=== PATIENT | male | born 1935 | race Caucasian/White ===

== ENCOUNTER → 2016-09-01 | Day surgery (SDC) | payer OTHER, BC ==
[~2016-09-01] MED LIST: ASPIRIN EC 325 MG TAB PO ONE; ATROPINE SULFATE 1 MG/10 ML SYR IVP PRN; ATROPINE SULFATE 1 MG/10 ML SYR ONE; BENZOCAINE UNIT DOSE SPRAY HURRICAINE MM ONE; DIAZEPAM 5 MG TAB ONE; DIAZEPAM 5 MG TAB PO ONE; FAMOTIDINE 20 MG TAB ONE; FAMOTIDINE 20 MG TAB PO ONE; HEPARIN 10,000 UNIT/10 ML MDV ONE; HYDROCODONE/APAP 5/325 TAB PO PRN; IOPAMIDOL (ISOVUE-370) 150 ML BTL IV ONE; LIDOCAINE 1% 30 ML SDV ONE; MIDAZOLAM 2 MG/2 ML VIAL IVP ONE; MIDAZOLAM 2 MG/2 ML VIAL ONE; NS 1,000 ML IV ONE; ONDANSETRON 4 MG/2 ML VIAL IVP PRN; VERAPAMIL 5 MG/2 ML VIAL ONE; diphenhydrAMINE 25 MG CAP PO ONE; fentaNYL 100 MCG/2 ML INJ IVP ONE; fentaNYL 100 MCG/2 ML INJ ONE
--- NOTE | 2016-09-01 11:55 | CPEKG ---
Heart Rate: 75 RR Interval: 800 P-R Interval: 161 QRSD Interval: 102 QT Interval: 428 QTC Interval: 479 P [place]: 0 QRS [place]: 121 T Wave [place]: -37 EKG Severity - ABNORMAL ECG - EKG Impression: SINUS RHYTHM EKG Impression: RIGHT AXIS DEVIATION EKG Impression: LOW VOLTAGE IN FRONTAL LEADS EKG Impression: non-specific T wave changes inferior and laterally. EKG Impression: IVCD Electronically Signed By: Hebert Byrd 01-Sep-2016 17:32:23
[2016-09-01 12:05] LABS: % IMMATURE GRANULYOCYTES 0.6 % (0.0-1.1); ABSOLUTE IMMATURE GRANULOCYTES 0.04 10^3/uL (0.00-0.10); ADD DIFF? NO; ADD MORPH? NO; ADD SCAN? NO; ATYPICAL LYMPHOCYTE FLAG 10 (0-99); FRAGMENT RBC FLAG 0 (0-99); HEMATOCRIT 40.7 % (40.0-51.0); LEFT SHIFT FLG 0 (0-99); LIPEMIA HEMOLYSIS FLAG 90 (0-99); MEAN CELL HEMOGLOBIN 30.3 pg (27.9-34.1); MEAN CELL HEMOGLOBIN CONCENTR. 34.4 g/dL (32.4-36.7); MEAN CELL VOLUME 88.1 fL (81.5-99.8); MEAN PLATELET VOLUME 9.2 fL (8.7-11.7); PLATELET CLUMPS FLAG 10 (0-99); PLATELET COUNT 200 10^3/uL (150-400); RED BLOOD CELL COUNT 4.62 10^6/uL (4.40-6.38); RED CELL DISTRIBUTION WIDTH 14.3 % (11.5-15.2)
[2016-09-01 12:21] LABS: INR 1.16 (0.83-1.16); PROTIME(PATIENT) 14.8 SEC (12.0-15.0)
[2016-09-01 12:36] LABS: POTASSIUM 4.1 mEq/L (3.5-5.2)
[2016-09-01 12:37] LABS: ANION GAP 13 mEq/L (8-16); CALCIUM 9.3 mg/dL (8.5-10.4); CARBON DIOXIDE 26 mEq/l (22-31); CHLORIDE 104 mEq/L (97-110); CHOLESTEROL 98 mg/dL (140-220); CHOLESTEROL/HDL RATIO 2.97 RATIO (1.00-4.97); GLOMERULAR FILTRATION RATE > 60; GLUCOSE 98 mg/dL (70-100); HIGH DENSITY LIPOPROTEIN 33 mg/dL (40-65); SODIUM 143 mEq/L (134-144); TRIGLYCERIDE 56 mg/dL (40-150); VERY LOW DENSITY LIPOPROTEINS 11 mg/dL (8-25)
[2016-09-01 12:38] LABS: LDL/HDL RATIO 1.64 RATIO (1.00-3.64); LOW DENSITY LIPOPROTEIN 54 mg/dL (80-100); MAGNESIUM 1.9 mg/dL (1.6-2.3); NON-HIGH DENSITY LIPOPROTEIN 65 mg/dL (90-129)
--- NOTE | 2016-09-01 13:50 | SUROPNOTE ---
[facility] Operative Report - Surgery Date of Procedure: 09/01/2016 Indication: This patient is an 81 year old man, with history of mitral valvuloplasty by Dr. Castro 16 years ago (quadrangular resection of the posterior leaflet and a ring annuloplasty with a 29mm Negro angioplasty ring), pulmonary hypertension, KARELY on CPAP, coronary artery disease (mild by [facility] in 2012), and paroxysmal atrial fibrillation, now presenting with increasing shortness of breath and dyspnea on exertion. The patient was only able to complete 3 minutes and 21 seconds on ETT secondary to limiting dyspnea. Echocardiogram demonstrated increasing pulmonary artery pressure estimated at 50 -60mmHg, mitral valve area of 1.3cm^2, and mean gradient of 8mm across the mitral valve. His BNP is elevated at 1900. A transesophageal echocardiogram and right/left heart catheterization with simultaneous transmitral valve pressure is indicated for evaluation of mitral stenosis. Procedures performed: 1. Transesophageal echocardiogram 2. Right and Left heart catheterization with left ventricular and selective coronary angiography. Simultaneous transmitral valve pressure was measured. Description of procedure: Description, risks, benefits and alternatives were discussed in detail. Informed consent was obtained. The patient received IV Versed and IV Fentanyl for sedation. Patient underwent transesophageal echocardiography which demonstrated mitral stenosis with mean gradient of 6mmHg across the mitral valve. The patient was brought to the catheterization laboratory where a timeout was performed. The right arm was sterilely prepped and draped. 2% lidocaine utilized for local anesthetic. A 5-Hungarian hemostatic sheath was placed in the right brachial vein utilizing the IV already in place. A 5-Hungarian PWP catheter was utilized for right heart catheterization. 021 [place] wire utilized to orient the catheter in the desired position. A 5/6-Hungarian slender hemostatic sheath placed right radial artery utilizing micropuncture technique. Intraarterial verapamil and intravenous heparin was administered. Next, Pigtail catheter was utilized for left heart catheterization, while the PWP catheter was kept in position for pulmonary capillary wedge pressure. Simultaneous transmitral valve pressure was measured. Pigtail catheter was then utilized for left heart catheterization and left ventricular angiography. Pullback gradient was obtained. Diagnostic coronary angiography performed with 6-Hungarian, Maki right-4 and Maki left-3.5 catheter. All catheters passed over a 0.035 guidewire. Arterial sheath was removed and TR band was placed. Venous sheath was removed in the CVC. Findings: 1. Transesophageal echocardiography demonstrated mitral stenosis with mean gradient of 6mmHg across the mitral valve. 1. Hemodynamics: Right atrial pressure mean of 25, right ventricular pressure 61/19/30 end-diastolic, pulmonary artery pressure 64/27, mean of 39, pulmonary capillary wedge pressure mean of 31 with a small V wave. Aortic pressure 129/69 , mean of 94, left ventricular pressure 130/13/25 end-diastolic. Mean transmitral valvular gradient was approximately 11.7mmHg. Estimated mitral valve area is 0.87cm^2. 2. Saturations: Main pulmonary artery 62.5%, Ao 95.7%. Assumed Brant cardiac output 3.87L/min with cardiac index of 1.98L/min/m2. Repeat saturations after transmitral valve pressures were taken: Main pulmonary artery 60.1%. Ao 94.1% Assumed Brant cardiac output 3.78L/min and cardiac index 1.93L/min/m2. 2. Left ventricle: The left ventricle appears normal in size. Left ventricle is normal shape. Segmental wall motion is normal with an ejection fraction of 50 -55%. There is no significant mitral regurgitation or filling defects. The aortic root and ascending aorta appears normal, there is no dissection or aneurysm formation. 3. Coronary angiography: Left main: The left main is quite short and bifurcates and is free of disease. 4. Left anterior descending: This is a moderate-sized vessel continuing to the apex. There is a small first and moderate bifurcating second diagonal branch. There are luminal irregularities in the proximal, mid, and distal LAD, but no stenosis of greater than 20%. 5. Circumflex: The circumflex gives rise to a [id number] high lateral/ ramus intermedius branch and a small marginal and a large marginal branch. There are minor luminal irregularities and no significant stenosis. 6. Right coronary: Moderately large dominant vessel. Moderate posterior descending and moderate multibranching posterolateral circulation. The vessel has mild luminal irregularities, but no significant stenoses. Overall Impression: 1. Probable severe mitral stenosis although hemodynamics are not greatly different than 3 years ago. Wonder whether increased diuretic therapy would give symptomatic improvement vs. surgery consult vs. transcutaneous mitral valve replacement. 2. Mild coronary artery disease, without significant progression since 2012. 3. Low-normal left ventricular systolic function with ejection fraction of 50- 55%. Plan: 1. Increased diuretic therapy for symptomatic improvement vs. surgery consult vs. consider transcutaneous mitral valve replacement. 2. Continue aggressive risk modification and statin therapy. Portions of this chart were entered by a scribe. I have reviewed this chart and agree with the documentation. Report scribed for Dr. Vinicius Ceron. Report scribed by Rissa Garcia.
--- NOTE | 2016-09-04 11:26 | ECHO ---
[id number] + + [address] : : [place] [address] : : [phone] + + Transesophageal Echocardiographic Report + -----+ :Name: GISELA WILSON Date: 09/01/2016 12:52 PM : : Hospital Admission Number: [id number] Location : [facility]: :: 1935 Gender: Male : :Age: 81 yrs Race: WH,White : :Reason For Study: Eval Mitral Valve : :History: Pre Cath, MVR : + -----+ Doppler Measurements & Calculations MV V2 mean: 118.8 cm/sec TR max marshall: 254.7 cm/sec MV mean P.7 mmHg TR max P.9 mmHg MV V2 VTI: 68.2 cm RAP systole: 10.0 mmHg RVSP(TR): 35.9 mmHg Left Ventricle The left ventricular ejection fraction is normal. Atria The interatrial septum is intact with no evidence for an atrial septal defect. Injection of contrast documented no interatrial shunt. No left atrial mass or thrombus visualized. No thrombus is detected in the left atrial appendage. The left atrium is moderate to severely dilated. The right atrium is moderate to severely dilated. Mitral Valve The posterior mitral leaflet is thickened and fixed consistent with prior mitral repair surgery. MV apporximate Mean PG is 6 mmHg by ISABEL. There is moderate mitral stenosis. There is trace to mild mitral regurgitation. The mitral valve has been repaired. An annuloplasty ring is noted in the mitral position. Tricuspid Valve There is mild to moderate tricuspid regurgitation. Aortic Valve The aortic valve is trileaflet. There is no aortic stenosis. Mild to moderate aortic regurgitation. Pulmonic Valve The pulmonic valve is normal in structure and function. Conclusion A 2D transesophageal echocardiogram with color flow Doppler was performed. The left ventricular ejection fraction is normal. The interatrial septum is intact with no evidence for an atrial septal defect. Injection of contrast documented no interatrial shunt. No left atrial mass or thrombus visualized. No thrombus is detected in the left atrial appendage. MV apporximate Mean PG is 6 mmHg by ISABEL. The mitral valve has been repaired. There is mild to moderate tricuspid regurgitation. The aortic valve is trileaflet. Mild to moderate aortic regurgitation. There is trace to mild mitral regurgitation. The left atrium is moderate to severely dilated. There is moderate mitral stenosis. Final Reading Physician: Tiffanie Alonso signed on 09/04/2016 11:21 AM Ordering Physician: TRINY AVELAR Performed By: Triny Avelar MD
== END | disposition home or self-care (01) ==
LOC: FCATH 11:27
PROVIDERS: ATTEND Internal Medicine Interventional Cardiology
PROC: 4A023N8 Measurement of Cardiac Sampling and Pressure, Bilateral, Percutaneous Approach (ICD-10-PCS; principal; 2016-09-01)
PROC: B2151ZZ Fluoroscopy of Left Heart using Low Osmolar Contrast (ICD-10-PCS; principal; 2016-09-01)
PROC: B246ZZ4 Ultrasonography of Right and Left Heart, Transesophageal (ICD-10-PCS; principal; 2016-09-01)
PROC: B2111ZZ Fluoroscopy of Multiple Coronary Arteries using Low Osmolar Contrast (ICD-10-PCS; principal; 2016-09-01)
DX: I34.2 Nonrheumatic mitral (valve) stenosis (principal); I48.0 Paroxysmal atrial fibrillation; I27.2 Other secondary pulmonary hypertension; G47.33 Obstructive sleep apnea (adult) (pediatric); Z99.89 Dependence on other enabling machines and devices; I25.10 Atherosclerotic heart disease of native coronary artery without angina pectoris
CPT/HCPCS: J0461; J1644; J2250; J3010; Q9967

== ENCOUNTER → 2016-10-05 | Outpatient (CLI) | payer OTHER, BC | LOC: BMCIMAGING 10:45 | PROVIDERS: ATTEND Internal Medicine | DX: R05 Cough (principal); R50.9 Fever, unspecified; I50.9 Heart failure, unspecified ==

== ENCOUNTER → 2017-01-01 | Outpatient (CLI) | payer OTHER, BC | LOC: BHFA 10:00 | PROVIDERS: ATTEND Internal Medicine Cardiovascular Disease | DX: Z01.818 Encounter for other preprocedural examination (principal); I65.23 Occlusion and stenosis of bilateral carotid arteries ==

== ENCOUNTER → 2017-01-03 | Outpatient (CLI) | payer OTHER, BC | LOC: FLAB 10:28 | PROVIDERS: ATTEND Thoracic Surgery (Cardiothoracic Vascular Surgery) | DX: Z01.810 Encounter for preprocedural cardiovascular examination (principal); J44.9 Chronic obstructive pulmonary disease, unspecified; I05.9 Rheumatic mitral valve disease, unspecified; I07.9 Rheumatic tricuspid valve disease, unspecified; I48.91 Unspecified atrial fibrillation ==

== ENCOUNTER 2017-01-08 06:39 | Inpatient (IN) | payer OTHER, BC ==
[2017-01-03 10:35] LABS: % IMMATURE GRANULYOCYTES 1.4 % (0.0-1.1); ABSOLUTE IMMATURE GRANULOCYTES 0.08 10^3/uL (0.00-0.10); ADD DIFF? NO; ADD MORPH? NO; ADD SCAN? NO; ATYPICAL LYMPHOCYTE FLAG 10 (0-99); FRAGMENT RBC FLAG 0 (0-99); HEMOGLOBIN 14.9 g/dL (13.7-17.5); LEFT SHIFT FLG 20 (0-99); LIPEMIA HEMOLYSIS FLAG 90 (0-99); MEAN CELL HEMOGLOBIN 29.9 pg (27.9-34.1); MEAN CELL HEMOGLOBIN CONCENTR. 33.9 g/dL (32.4-36.7); MEAN CELL VOLUME 88.4 fL (81.5-99.8); MEAN PLATELET VOLUME 9.7 fL (8.7-11.7); PLATELET CLUMPS FLAG 0 (0-99); PLATELET COUNT 221 10^3/uL (150-400); RED BLOOD CELL COUNT 4.98 10^6/uL (4.40-6.38); RED CELL DISTRIBUTION WIDTH 15.2 % (11.5-15.2)
[2017-01-03 10:53] LABS: ANION GAP 13 mEq/L (8-16); CALCIUM 10.1 mg/dL (8.5-10.4); CARBON DIOXIDE 25 mEq/l (22-31); CHLORIDE 104 mEq/L (97-110); CREATININE 1.2 mg/dL (0.7-1.3); GLOMERULAR FILTRATION RATE 58; GLUCOSE 131 mg/dL (70-100); POTASSIUM 4.9 mEq/L (3.5-5.2); SODIUM 142 mEq/L (134-144)
[2017-01-04 16:50] LABS: HEMOGLOBIN A1C 6.5 % (4.0-6.0)
[~2017-01-08 06:39] MED LIST changes: +AMINOCAPROIC ACID 5 GM/20 ML VIAL IV ONE; -ASPIRIN EC 325 MG TAB PO ONE; -ATROPINE SULFATE 1 MG/10 ML SYR IVP PRN; -ATROPINE SULFATE 1 MG/10 ML SYR ONE; -BENZOCAINE UNIT DOSE SPRAY HURRICAINE MM ONE; +CITRATE DEXTROSE SOLN 500 ML BAG MISC ONE; -DIAZEPAM 5 MG TAB ONE; -DIAZEPAM 5 MG TAB PO ONE; -FAMOTIDINE 20 MG TAB ONE; -FAMOTIDINE 20 MG TAB PO ONE; -HEPARIN 10,000 UNIT/10 ML MDV ONE; -HYDROCODONE/APAP 5/325 TAB PO PRN; +INSULIN REGULAR HUMAN 100 UNIT in NS 100 ML IV ONE; -IOPAMIDOL (ISOVUE-370) 150 ML BTL IV ONE; -LIDOCAINE 1% 30 ML SDV ONE; +LIDOCAINE 1% 5 ML SDV ID PRN; +MANNITOL 25% 12.5 GM/50 ML VIAL IV ONE; -MIDAZOLAM 2 MG/2 ML VIAL IVP ONE; -MIDAZOLAM 2 MG/2 ML VIAL ONE; +NOREPINEPHRINE BITARTRATE 16 MG in NS 250 ML IV ONE; -ONDANSETRON 4 MG/2 ML VIAL IVP PRN; +PHENYLEPHRINE HCL 50 MG in NS 250 ML IV ONE; +SODIUM BICARBONATE 20 MEQ, LIDOCAINE 1% 10 ML in NORMOSOL-R 1,000 ML MISC ONE; -VERAPAMIL 5 MG/2 ML VIAL ONE; +ceFAZolin 2 GM/DEXTROSE 100 ML IV ONE; -diphenhydrAMINE 25 MG CAP PO ONE; -fentaNYL 100 MCG/2 ML INJ IVP ONE; -fentaNYL 100 MCG/2 ML INJ ONE; +niCARdipine/NACL 200 ML IV ONE
[2017-01-08] MEDS ORDERED: DOPamine/DEXTROSE/250 ML BAG IV ONE (06:42)
[2017-01-08] MEDS ORDERED: niCARdipine/NACL/200 ML BAG IV ONE (06:42)
[2017-01-08] MEDS ORDERED: ALBUMIN 5% 250 ML BOTTLE IV ONE (06:42)
[2017-01-08] MEDS ORDERED: NA BICARBONATE 50 MEQ/50 ML VIAL ONE (06:42)
[2017-01-08] MEDS ORDERED: PROTAMINE SULFATE 50 MG/5 ML VIAL IVP ONE (06:42)
[2017-01-08] MEDS ORDERED: LIDOCAINE 2% 100 MG/5 ML SYR ONE ×2 (06:42→08:16)
[2017-01-08] MEDS ORDERED: CALCIUM CHLORIDE 1 GM/10 ML INJ ONE ×2 (06:42→08:16)
[2017-01-08] MEDS ORDERED: POTASSIUM Cl (KCl) 20 MEQ/50 ML BAG IV ONE (06:42)
[2017-01-08] MEDS ORDERED: CITRATE DEXTROSE SOLN 500 ML BAG ONE (06:42)
[2017-01-08] MEDS ORDERED: MILRINONE/DEXTROSE/100 ML BAG IV ONE (06:42)
[2017-01-08] MEDS ORDERED: AMINOCAPROIC ACID 5 GM/20 ML VIAL ONE (06:42)
[2017-01-08] MEDS ORDERED: ADENOSINE 6 MG/2 ML VIAL ONE (06:43)
[2017-01-08] MEDS ORDERED: AMIODARONE HCL 150 MG/3 ML VIAL ONE (06:43)
[2017-01-08] MEDS ORDERED: methylPREDNISolone SOD SUCC 1 GM/8 ML VIAL ONE (06:43)
[2017-01-08] MEDS ORDERED: MAGNESIUM SULFATE 1 GM/2 ML VIAL ONE (06:43)
[2017-01-08] MEDS ORDERED: HEPARIN 10,000 UNIT/10 ML MDV ONE (06:43)
[2017-01-08] MEDS ORDERED: ceFAZolin 1 GM VIAL ONE (06:44)
--- NOTE | 2017-01-08 07:36 | PDGENHP ---
History and Physical - Chief Complaint MS, TR, AI, PAF - History of Present Illness 81M evaluated at [facility] on 11/28/16 for symptomatic valvular cardiomyopathy with paroxysmal atrial fibrillation. Pt here today for elective redo sternotomy, redo mitral repair vs replacement, tricuspid repair, possible aortic valve replacement, and atrial fibrillation ablation. Pt had a persistent cough last week which has since resolved after his Lasix dose was increased. When standing quickly from sitting he sometimes feels light- headed, but otherwise feels well. He denies syncope, CP, palpitations, worsening SOB, abdominal pain. He states his legs sometimes swell. History Information - Allergies/Home Medication List Allergies/Adverse Reactions: No Known Allergies Allergy (Verified 12/07/16 11:29) Home Medications: Amiodarone HCl [Pacerone (*)] 200 mg PO DAILY 12/27/16 [Last Taken 01/07/17] Amoxicillin 2,000 mg PO DAILY PRN 12/27/16 [Last Taken Unknown] Apixaban [Eliquis] 5 mg PO BID 12/27/16 [Last Taken 01/02/17] Atorvastatin Calcium [Lipitor 20 mg (*)] 20 mg PO HS 12/27/16 [Last Taken ] Furosemide [Lasix 20 MG (*)] 20 mg PO DAILY@1400 12/27/16 [Last Taken 01/07/17] Furosemide [Lasix 40 MG (*)] 40 mg PO DAILY 12/27/16 [Last Taken Unknown] Herbals/Supplements -Info Only 1 ea PO DAILY 12/27/16 [Last Taken Unknown] Multivitamins [Multivitamin (*)] 1 each PO DAILY 12/27/16 [Last Taken 01/07/17] Psyllium Husk (with Sugar) [Metamucil Packet] 3.4 gm PO DAILY@1200 12/27/16 [ Last Taken Unknown] amLODIPine BESYLATE [Amlodipine Besylate] 5 mg PO DAILY 12/27/16 [Last Taken ] Lovenox 01/08/17 [Last Taken 01/07/17] I have personally reviewed and updated: medical history, social history, surgical history - Past Medical History atrial fibrillation, CHF, GERD, hypertension Additional medical history: MS, TR, AI - Surgical History Additional surgical history: MV repair 1999 ([place]) - Social History Smoking Status: Former smoker Alcohol Use: Occasionally Review of Systems ROS: 10pt was reviewed & negative except for what was stated in HPI & below Constitutional: Reports: no symptoms EENMT: Reports: no symptoms Cardiac: Reports: edema, lightheadedness. Denies: chest pain, irregular heart rate, palpitations, syncope Respiratory: Reports: cough, shortness of breath Gastrointestinal: Reports: no symptoms Genitourinary: Reports: no symptoms Muscolosketal: Reports: no symptoms Skin: Reports: rash (chest) Neurological: Reports: no symptoms Physical Exam Constitutional: no apparent distress, appears nourished, not in pain Eyes: anicteric sclera Ears, Nose, Mouth, Throat: moist mucous membranes, ears appear normal Cardiovascular: regular rate and rhythym Peripheral Pulses: 2+: dorsalis-pedis (R), dorsalis-pedis (L) Respiratory: no respiratory distress, no rales or rhonchi, clear to auscultation , No expiratory wheeze Gastrointestinal: soft, non-tender abdomen, No tenderness Genitourinary: no bladder fullness, no bladder tenderness Skin: warm, normal color, rash (?dermatitis) Musculoskeletal: full muscle strength Neurologic: AAOx3, sensation intact bilaterally Psychiatric: interacting appropriately, not anxious, not encephalopathic, thought process linear Lab Data & Imaging Review 01/03/17 10:03 01/03/17 10:03 WBC 5.63 10^3/uL (3.80-9.50) 01/03/17 10:03 RBC 4.98 10^6/uL (4.40-6.38) 01/03/17 10:03 Hgb 14.9 g/dL (13.7-17.5) 01/03/17 10:03 Hct 44.0 % (40.0-51.0) 01/03/17 10:03 MCV 88.4 fL (81.5-99.8) 01/03/17 10:03 MCH 29.9 pg (27.9-34.1) 01/03/17 10:03 MCHC 33.9 g/dL (32.4-36.7) 01/03/17 10:03 RDW 15.2 % (11.5-15.2) 01/03/17 10:03 Plt Count 221 10^3/uL (150-400) 01/03/17 10:03 MPV 9.7 fL (8.7-11.7) 01/03/17 10:03 Neut % (Auto) 79.0 % (39.3-74.2) H 01/03/17 10:03 Lymph % (Auto) 10.7 % (15.0-45.0) L 01/03/17 10:03 Mason % (Auto) 7.1 % (4.5-13.0) 01/03/17 10:03 Eos % (Auto) 1.4 % (0.6-7.6) 01/03/17 10:03 Baso % (Auto) 0.4 % (0.3-1.7) 01/03/17 10:03 Nucleat RBC Rel Count 0.0 % (0.0-0.2) 01/03/17 10:03 Absolute Neuts (auto) 4.45 10^3/uL (1.70-6.50) 01/03/17 10:03 Absolute Lymphs (auto) 0.60 10^3/uL (1.00-3.00) L 01/03/17 10:03 Absolute Monos (auto) 0.40 10^3/uL (0.30-0.80) 01/03/17 10:03 Absolute Eos (auto) 0.08 10^3/uL (0.03-0.40) 01/03/17 10:03 Absolute Basos (auto) 0.02 10^3/uL (0.02-0.10) 01/03/17 10:03 Absolute Nucleated RBC 0.00 10^3/uL (0-0.01) 01/03/17 10:03 Immature Gran % 1.4 % (0.0-1.1) H 01/03/17 10:03 Immature Gran # 0.08 10^3/uL (0.00-0.10) 01/03/17 10:03 Sodium 142 mEq/L (134-144) 01/03/17 10:03 Potassium 4.9 mEq/L (3.5-5.2) 01/03/17 10:03 Chloride 104 mEq/L (97-110) 01/03/17 10:03 Carbon Dioxide 25 mEq/l (22-31) 01/03/17 10:03 Anion Gap 13 mEq/L (8-16) 01/03/17 10:03 BUN 31 mg/dL (7-23) H 01/03/17 10:03 Creatinine 1.2 mg/dL (0.7-1.3) 01/03/17 10:03 Estimated GFR 58 01/03/17 10:03 Glucose 131 mg/dL (70-100) H 01/03/17 10:03 Hemoglobin A1c 6.5 % (4.0-6.0) H 01/03/17 10:03 Estim Average Glucose 140 mg/dL (68-126) H 01/03/17 10:03 Calcium 10.1 mg/dL (8.5-10.4) 01/03/17 10:03 Patient ABO/Rh O POSITIVE 01/03/17 10:03 Antibody Screen NEGATIVE 01/03/17 10:03 Crossmatch IS Only See Detail 01/03/17 10:03 Visualized and Interpreted Chest x-ray results: Yes Chest X-Ray results: no infiltrate Assessment & Plan Assessment: MS, TR, AI, PAF Plan: Redo-sternotomy, redo mitral valve repair vs replacement, tricuspid repair, Hunt- Maze IV, possible aortic valve replacement
[2017-01-08] MEDS ORDERED: LR 1,000 ML IV ONE (07:38)
[2017-01-08] MEDS ORDERED: MINERAL OIL 10 ML VIAL ONE (07:52)
[2017-01-08] MEDS ORDERED: MIDAZOLAM 2 MG/2 ML VIAL ONE ×3 (08:02→08:15)
[2017-01-08] MEDS ORDERED: fentaNYL 100 MCG/2 ML INJ ONE (08:15)
[2017-01-08] MEDS ORDERED: REMIFENTANIL HCL 1 MG VIAL ONE ×2 (08:15→10:42)
[2017-01-08] MEDS ORDERED: PROPOFOL/EMULSION 500 MG/50 ML BOTTLE IV ONE ×2 (08:15→10:42)
[2017-01-08] MEDS ORDERED: DEXAMETHASONE 4 MG/ML VIAL ONE ×2 (08:16)
[2017-01-08] MEDS ORDERED: PHENYLEPHRINE HCL 100 MCG/ML SYR ONE (08:16)
[2017-01-08] MEDS ORDERED: ROCURONIUM 100 MG/10 ML VIAL ONE (08:16)
[2017-01-08] MEDS ORDERED: LIDOCAINE HCL 160 MG/4 ML LTA KIT TP ONE (08:16)
[2017-01-08] MEDS ORDERED: ROCURONIUM 50 MG/5 ML VIAL ONE (08:16)
[2017-01-08] MEDS ORDERED: epHEDrine SULFATE 10 MG/ML SYR ONE (08:16)
[2017-01-08] MEDS ORDERED: ONDANSETRON 4 MG/2 ML VIAL ONE (08:16)
[2017-01-08] MEDS ORDERED: MAGNESIUM SULF 2 GM/WATER 50 ML BAG IV ONE (11:25)
[2017-01-08] MEDS: MUPIROCIN 2% 22 GM OINT NS SCH ×3 (11:46→21:02)
[2017-01-08] MEDS ORDERED: SODIUM CL NASAL 45 ML BTL EACHNARE PRN (13:50)
[2017-01-08] MEDS ORDERED: POLYETHYLENE GLYCOL 3350 17 GM PKT PO PRN (13:50)
[2017-01-08] MEDS ORDERED: D50W 25 GM/50 ML SYR IVP PRN (13:50)
[2017-01-08] MEDS ORDERED: CEPACOL LOZENGE PO PRN (13:50)
[2017-01-08] MEDS ORDERED: MAGNESIUM HYDROXIDE 30 ML UDCUP PO PRN (13:50)
[2017-01-08] MEDS ORDERED: ONDANSETRON DISINTEGRATING 4 MG TAB PO PRN (13:50)
[2017-01-08] MEDS ORDERED: ACETAMINOPHEN 325 MG TAB PO PRN (13:50)
[2017-01-08] MEDS ORDERED: PANTOPRAZOLE SODIUM 40 MG in NS 100 ML IV ONE (13:50)
[2017-01-08] MEDS ORDERED: METOCLOPRAMIDE 10 MG/2 ML VIAL IVP PRN (13:50)
[2017-01-08] MEDS ORDERED: BISACODYL 10 MG SUPP PR PRN (13:50)
[2017-01-08] MEDS ORDERED: LACTULOSE 20 GM/30 ML UDCUP PO PRN (13:50)
[2017-01-08] MEDS ORDERED: MAGNESIUM SULF 2 GM/WATER 50 ML IV ONE (13:50)
[2017-01-08] MEDS ORDERED: ONDANSETRON 4 MG/2 ML VIAL IVP PRN (13:50)
[2017-01-08] MEDS ORDERED: MEPERIDINE 25 MG/ML SYR IVP PRN (13:50)
[2017-01-08] MEDS ORDERED: ACETAMINOPHEN 650 MG SUPP PR PRN (13:50)
[2017-01-08] MEDS ORDERED: HYDROCODONE/APAP 5/325 TAB PO PRN (13:50)
[2017-01-08] MEDS ORDERED: SUGAMMADEX SODIUM 200 MG/2 ML VIAL IVP ONE (14:00)
[2017-01-08] MEDS ORDERED: NS 1,000 ML IV SCH (14:00)
[2017-01-08 15:13] LABS: BASE EXCESS -8.3 mEq/L (-2.5-2.5); BICARBONATE 18 mEq/L (22-26); MEASURED OXYGEN SATURATION 88 % (92-95); O2 CONCENTRATIION 100 % (0-100); P/F RATIO 57 RATIO; PCO2 36 mmHg (34-38); PO2 57 mmHg (65-75); SIMV YES; TCO2 19 mEq/L (23-27)
[2017-01-08 15:14] LABS: PRESSURE SUPPORT 7
--- NOTE | 2017-01-08 15:52 | POSTOPPROG ---
Post Op Note Date of Operation: 01/08/17 Surgeon: Graham Archuleta Psych Specialist: Eda Anesthesiologist: Darrel Anesthesia: GET(General Endotracheal) Pre-op Diagnosis: MS/TR/NPAF Procedure: CMIV/MVR #23 St Khai/TVA #34 ring Inf/Abcess present in the surg proc area at time of surgery?: No EBL: 100-500 Drains: Other (3 blakes)
[2017-01-08 17:51] LABS: CALCULATED OXYGEN SATURATION 98 % (92-95); O2 CONCENTRATIION 40 % (0-100)
[2017-01-08] MEDS: fentaNYL 100 MCG/2 ML INJ IVP PRN ×2 (17:52→21:03)
[2017-01-08] MEDS: ALBUMIN 5% 250 ML IV PRN ×2 (17:56→18:18)
[2017-01-08] MEDS: CHLORHEXIDINE GLUCONATE 15 ML UDL PO SCH ×2 (18:35→20:37)
[2017-01-08] MEDS: FAMOTIDINE 20 MG/NACL 50 ML IV SCH (18:38)
[2017-01-08] MEDS ORDERED: FUROSEMIDE 20 MG/2 ML VIAL IV ONE (20:30)
[2017-01-08] MEDS: ceFAZolin 2 GM/DEXTROSE 100 ML IV SCH (20:37)
[2017-01-08] MEDS: INSULIN REGULAR HUMAN 100 UNIT in NS 100 ML IV SCH ×2 (21:05→22:01)
[2017-01-08] MEDS: POTASSIUM Cl (KCl) 50 ML IV PRN ×2 (21:35→21:38)
[2017-01-08 22:34] LABS: CALCULATED OXYGEN SATURATION 88 % (92-95); O2 CONCENTRATIION 92 % (0-100)
[2017-01-08] MEDS ORDERED: SODIUM BICARBONATE 50 MEQ/50 ML SYR IV ONE (23:00)
[2017-01-09] MEDS: POTASSIUM Cl (KCl) 50 ML IV PRN (00:07)
[2017-01-09] MEDS: fentaNYL 100 MCG/2 ML INJ IVP PRN ×3 (01:09→08:50)
[2017-01-09 01:21] LABS: BASE EXCESS -2.8 mEq/L (-2.5-2.5); BICARBONATE 21 mEq/L (22-26); MEASURED OXYGEN SATURATION 92 % (92-95); PCO2 38 mmHg (34-38); PO2 69 mmHg (65-75); TCO2 22 mEq/L (23-27)
[2017-01-09 01:22] LABS: O2 CONCENTRATIION 94 % (0-100); P/F RATIO 73 RATIO
[2017-01-09] MEDS ORDERED: DOPamine/DEXTROSE/250 ML BAG IV ONE ×2 (02:35→18:48)
--- NOTE | 2017-01-09 02:59 | GOP ---
[f rep st] OPERATIVE REPORT DATE OF OPERATION: 01/08/2017 SURGEON: Graham Archuleta DO FLIGHT KITCHEN MANAGER: Brian Veras PA-C ANESTHESIOLOGIST: Manfred Rojo MD PREOPERATIVE DIAGNOSIS: 1. Mitral stenosis, status post previous mitral valve repair. 2. Tricuspid insufficiency. 3. Long-standing, persistent atrial fibrillation. 4. Dilated cardiomyopathy with class 3 congestive heart failure. POSTOPERATIVE DIAGNOSIS: 1. Mitral stenosis, status post previous mitral valve repair. 2. Tricuspid insufficiency. 3. Long-standing, persistent atrial fibrillation. 4. Dilated cardiomyopathy with class 3 congestive heart failure. PROCEDURE PERFORMED: 1. Reoperation, mitral valve replacement with a #23 Saint Khai mechanical prosthesis. 2. Tricuspid ring annuloplasty with #34 annuloplasty ring. 3. Hunt Maze 4 procedure, with testing. FINDINGS: DESCRIPTION OF PROCEDURE: Patient was found to have worsening class 3-4 congestive heart failure. He was found to have severe mitral stenosis on a previous mitral valve repair. He was also noted to have moderate tricuspid insufficiency with dilated right atrium, and persistent atrial fibrillation . He was referred for surgical intervention. He was brought to the operating room, intubated, and monitoring lines were placed. He was prepped a nd draped in sterile classical manner. Sternotomy was performed. The heart was marsupialized witho ut difficulty. The heart was markedly enlarged. RV function appeared to be somewhat depressed, ove rall ejection fraction was 45-50. The aortic valve had mild aortic insufficiency with no significan t obstruction and was felt to be best left alone. He was heparinized, cannulated. We then did exit and entrance block testing on both left and right pulmonary veins, and found them t o be quiescent. We believe the patient had a pulmonary vein ablation in the past, although it was n ot documented. I then encircled the right pulmonary veins with a clamp, and performed approximately 10 lesions with complete transmural burn as noted by sensing and detecting. We then again tested i t for sensing with exit and entrance block, and it was quiescent. I then initiated cardiopulmonary bypass and encircled the left pulmonary vein system after testing r evealed no entrance or exit, consistent with both entrance and exit block. I felt it prudent to rep eat it, nonetheless. We placed a clamp across the antrum with 3 separate applications, burning it a pproximately 10 times total with complete transmurality confirmed. We then retested it with no entr ance or exit noted. I then 1st placed a cross-clamp on, arrested the heart. I marked the terminus of the left and right coronaries on the coronary sinus. I then opened the left atrial appendage, which was free of throm bus on echo. I then performed multiple ablations up to the left superior pulmonary vein, across the Coumadin ridge. A 45 mm clip was then applied to the appendage. We then opened the left atrium th rough the right superior pulmonary vein. All fat had been removed from it prior to performing an ab lation. We extended the opening toward the mitral valve and the isthmus inferiorly, as well as supe riorly in order to help complete the box set. Because he was so scarred between the aorta and the p ulmonary arteries, and the dome of the left atrium was quite thin and there was some suture there co nsistent with maybe a potential problem in the past, I decided to use cryo. I did 5 minutes of cryo on a dome lesion, staying well away from the esophagus, crossing the left pulmonary vein line and c onnecting with the right side of the atriotomy. I then proceeded with clamping, with radiofrequency ablation of the floor line, trying to make the box set as large as possible, confirming that I had good overlap with the left antrum lesion. Multiple storm were confirmed. We then identified the bl ue marking on the coronary sinus and ablated that from externally, staying away from the posterior p ericardium with a lap sponge placed for protection. When the ice ball was seen within the left atrium, it was marked. We then cryo-ablated from the ter minus of the left atriotomy inferiorly, across the mitral valve, incorporating the marked area, with a good ice ball palpated inferiorly after 3 minutes of cryo. I then inspected the valve, it was fu sed and had maybe a 1 cm aperture only, it is quite thickened. I then spent a great deal of time ex cising the annuloplasty ring. I then removed the anterior leaflet. It was a very small valve; for that reason, I removed the subvalvular apparatus and the inferior and posterior leaflet, in order to get a sizable Sizer in there. After removing all mitral tissue, I was able size for a 23 Saint Sun e valve, although initially I had planned to put at least a 25 Magna valve. I felt that because of the small size and he weighing 80 kg, that we should place a mechanical valve because he would be on blood thinners lifetime, anyway, given his other comorbidities. The mechanical valve was sutured i n place with interrupted 2-0 Tycron pledgeted mattress sutures without difficulty. The ventricle wa s distended with no perivalvular leaking noted. The atriotomy was closed in standard fashion. I then removed the cross-clamp with suction on the ascending aortic vent in Trendelenburg, spontaneo us cardiac activity was noted to resume. We then secured the caval tapes and opened the right atriu m longitudinally. We did the appendage free wall lesion, staying high close to the right coronary a rtery, up toward the right ventricle; we did multiple storm there. We then loosened the caval tapes sequentially and did storm up onto the cava, off the atrium, staying posterior to avoid sinus node complex. Multiple storm were performed superiorly and inferiorly. I then cryoed across the anulus of the tricuspid valve with good apposition to the tissues, with flow in the right coronary artery. I then placed a retractor and sized the patient for a 34 mm ring, which was sutured in place with i nterrupted 2-0 Tycron pledgeted mattress sutures. Distention of the ventricle revealed no significa nt regurgitation. Atriotomy was closed in a two-layer fashion. Rewarming was begun. When the patient had no further air and was warm, we weaned him from bypass wi thout difficulties. Mitral valve appeared to function without incident. Gradient measured by the t echnician was 2 mm mean gradient, with good leaflet function and no significant perivalvular leaking . The patient was then weaned from bypass. The heparin was reversed with protamine. The cannula w as removed and oversewn. Four pacing wires. 2 pleural, 1 mediastinal drain were placed. The thymi c fat and pericardium were closed. Chest was closed in standard fashion. Sponge and needle count w ere correct. The patient was returned to ICU in stable condition. /[id number]/MODL
[2017-01-09 04:26] LABS: % IMMATURE GRANULYOCYTES 0.4 % (0.0-1.1); ABSOLUTE IMMATURE GRANULOCYTES 0.08 10^3/uL (0.00-0.10); ADD DIFF? NO; ADD MORPH? NO; ADD SCAN? NO; ATYPICAL LYMPHOCYTE FLAG 0 (0-99); FRAGMENT RBC FLAG 0 (0-99); HEMATOCRIT 35.8 % (40.0-51.0); HEMOGLOBIN 11.9 g/dL (13.7-17.5); LEFT SHIFT FLG 80 (0-99); LIPEMIA HEMOLYSIS FLAG 80 (0-99); MEAN CELL HEMOGLOBIN 29.8 pg (27.9-34.1); MEAN CELL HEMOGLOBIN CONCENTR. 33.2 g/dL (32.4-36.7); MEAN CELL VOLUME 89.5 fL (81.5-99.8); MEAN PLATELET VOLUME 9.6 fL (8.7-11.7); PLATELET CLUMPS FLAG 0 (0-99); PLATELET COUNT 149 10^3/uL (150-400); RED CELL DISTRIBUTION WIDTH 14.9 % (11.5-15.2)
[2017-01-09 04:31] LABS: INR 1.3 (0.83-1.16); PROTIME(PATIENT) 16.2 SEC (12.0-15.0)
[2017-01-09 04:33] LABS: ANION GAP 9 mEq/L (8-16); CALCIUM 8.6 mg/dL (8.5-10.4); CARBON DIOXIDE 24 mEq/l (22-31); CHLORIDE 114 mEq/L (97-110); CREATININE 1.1 mg/dL (0.7-1.3); GLOMERULAR FILTRATION RATE > 60; GLUCOSE 87 mg/dL (70-100); POTASSIUM 4.5 mEq/L (3.5-5.2); SODIUM 147 mEq/L (134-144)
[2017-01-09] MEDS: FAMOTIDINE 20 MG/NACL 50 ML IV SCH (05:22)
[2017-01-09] MEDS: HEPARIN 5,000 UNIT/0.5 ML SYR SC SCH ×2 (05:22→14:49)
--- NOTE | 2017-01-09 08:00 | SOAPPROG ---
SOAP Progress Note Assessment/Plan: Assessment: POD#1 Redo median sternotomy. Explant mitral ring. Implant #23 St Khai mechanical mitral valve. Tricuspid valve annuloplasty #34 Armendariz MC3 ring. CoxMaze IV. Sx post MVrepair stenosis - s/p redo with mechanical MVR. Stable early postop course. Antithrombotic prophylaxis with Coumadin, target INR 2-3. 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 Antithrombotic prophylaxis as per MV. Chronic class III dCHF - off CPB on low dose dopa. Wean in progress. No sig volume overload. Stable renal fx. Longstanding persistent atrial fibrillation/chronic anticoagulation - Apaced post CM4 for JR. Appears to be recovering sinus mechanism. Antithrombotic prophylaxis as per MV Acute expected blood loss anemia - Stable. No blood products transfused. No evidence active bleeding. Formal anticoagulation to start tonight. KARELY on CPAP - Stable. Home device to be brought in by family tonight. Plan: Wean dopa to SBP > 90. VVI backup 50. Galina and mccoy removal once off dopa. Transition SQ hep to therapeutic Lovenox tonight. Coumadin 5 mg today. Begin daily diuresis. 40 mg IV this am. Probable tx to PCU later today 01/09/17 07:53 Subjective: Feels fine sitting in a chair. A little woozy and weak standing. Thirsty and eagerly awaiting swallow clearance. Satisfactory analgesia. Objective: Vital Signs Temp Pulse Resp BP Pulse Ox 37.2 C 80 16 132/55 H 92 01/09/17 05:00 01/09/17 07:00 01/09/17 07:00 01/09/17 07:00 01/09/17 07:00 Laboratory Results 01/09/17 04:12 01/09/17 04:12 01/08/17 01/09/17 01/10/17 05:59 05:59 05:59 Intake Total 887.3 Output Total 1875 Balance -987.7 PT 16.2 SEC (12.0-15.0) H 01/09/17 04:12 INR 1.30 (0.83-1.16) H 01/09/17 04:12 Extubated yest afternoon without incident. Apaced at 80 for optimized hemodynamics. Holding SR > 65 this am, and now on backup at 50. Dopa @ 5 mcg for MAPs > 70. Wean in progress. No sig CTOP, quality thin. CXR -> min pulm vasc congestion, basilar atelectasis, no PTX. Excellent fluid balance. Adequate UOP. Labs ok. Physical Exam - Physical Exam General Appearance: alert, no apparent distress Respiratory: crackles (bases), other (blakes x 3 to bulb suction, serosang drainage) Cardiac/Chest: regular rate, rhythm, other (Sternum grossly stable. Sternotomy CDI. A&V wires intact) Abdomen: normal bowel sounds, non-tender, soft Skin: warm/dry Extremities: swelling (trace-1+ dependent) ICD10 Worksheet Patient Problems: Problems Problem Status Onset Acute blood loss anemia Acute S/P Maze operation for atrial fibrillation Acute ~01/08/17 S/P mitral valve replacement with metallic valve Acute ~01/08/17 S/P tricuspid valve repair Acute ~01/08/17 Aortic valve insufficiency Chronic Chronic anticoagulation Chronic Longstanding persistent atrial fibrillation Chronic Mitral stenosis, supravalvar mitral ring Chronic Tricuspid regurgitation Chronic
[2017-01-09] MEDS ORDERED: FUROSEMIDE 40 MG/4 ML VIAL IVP ONE ×5 (08:15→22:35)
[2017-01-09] MEDS: ceFAZolin 2 GM/DEXTROSE 100 ML IV SCH ×2 (08:16→20:32)
[2017-01-09] MEDS: CHLORHEXIDINE GLUCONATE 15 ML UDL PO SCH (08:17)
[2017-01-09] MEDS: MUPIROCIN 2% 22 GM OINT NS SCH ×2 (08:19→20:36)
[2017-01-09] MEDS ORDERED: ASPIRIN 81 MG CHEWABLE TAB TUBE PRN (09:00)
[2017-01-09] MEDS: ASPIRIN 81 MG CHEWABLE TAB PO SCH (10:12)
[2017-01-09] MEDS: PANTOPRAZOLE SODIUM 40 MG TAB PO SCH (10:12)
[2017-01-09 10:36] LABS: POTASSIUM 5.2 mEq/L (3.5-5.2)
[2017-01-09 14:16] LABS: POTASSIUM 5.6 mEq/L (3.5-5.2)
[2017-01-09] MEDS ORDERED: traMADol 50 MG TAB PO PRN (16:00)
[2017-01-09] MEDS ORDERED: WARFARIN SODIUM 5 MG TAB PO ONE (16:00)
--- NOTE | 2017-01-09 16:10 | PDINTPN ---
Child Care Cook Progress Note Assessment/Plan: Assessment: S/P MV repair: Recovering well Atrial Fibrillation: S/P Hunt-Maze. Now in NSR Pulmonary HTN: Moderate-Severe: ? due to MS. KARELY: On CPAP. ? settings. Hyperkalemia: 5.6 this afternoon. Anemia: Mild, stable. Hyperglycemia: BSs mid 150s Plan: CPAP with sleep. Lasix for hyperkalemia, then repeat K+ Follow H/H Follow-up Pulmonary HTN as an outpatient. 01/09/17 16:08 01/09/17 16:11 Subjective: Feels OK, denies dyspnea, pain controlled. Objective: Vital Signs Temp Pulse Resp BP Pulse Ox 36.9 C 67 18 130/55 H 93 01/09/17 15:00 01/09/17 15:00 01/09/17 15:00 01/09/17 15:00 01/09/17 15:00 Laboratory Results 01/09/17 04:12 01/09/17 13:50 01/08/17 01/09/17 01/10/17 05:59 05:59 05:59 Intake Total 887.3 Output Total 1875 785 Balance -987.7 -785 PT 16.2 SEC (12.0-15.0) H 01/09/17 04:12 INR 1.30 (0.83-1.16) H 01/09/17 04:12 CXR: Decreased edema. Images reviewed. Physical Exam - Physical Exam General Appearance: alert, no apparent distress EENT: normal ENT inspection Neck: normal inspection Respiratory: lungs clear, normal breath sounds Cardiac/Chest: regular rate, rhythm, No edema Abdomen: normal bowel sounds, non-tender, soft Skin: normal color, warm/dry Extremities: normal inspection Neuro/Psych: alert, normal mood/affect, oriented x 3 ICD10 Worksheet Patient Problems: Problems Problem Status Onset Acute blood loss anemia Acute S/P Maze operation for atrial fibrillation Acute ~01/08/17 S/P mitral valve replacement with metallic valve Acute ~01/08/17 S/P tricuspid valve repair Acute ~01/08/17 Aortic valve insufficiency Chronic Chronic anticoagulation Chronic Longstanding persistent atrial fibrillation Chronic Mitral stenosis, supravalvar mitral ring Chronic Tricuspid regurgitation Chronic
--- NOTE | 2017-01-09 16:46 | GCON ---
[f rep st] CONSULTATION DATE OF CONSULTATION: 01/08/2017 REFERRING PHYSICIAN: Graham Archuleta DO PULMONARY/CRITICAL CONSULTATION REASON FOR REFERRAL: Evaluation and management of anemia and hyperglycemia. HISTORY OF PRESENT ILLNESS: The patient is an 81-year-old gentleman who is status post mitral valve repair in 1999, who developed increasing dyspnea on exertion and was found to have mitral stenosis and paroxysmal atrial fibrillation. He was referred to Dr. Archuleta, who today performed a mitral valv e replacement with a tricuspid ring annuloplasty and a Hunt-Maze procedure. The patient was able to be extubated. He still has some chest pain but denies shortness of breath. PAST MEDICAL HISTORY: 1. Mitral valve stenosis status post repair. 2. Paroxysmal atrial fibrillation. The patient was on anticoagulation, as well as amiodarone for r hythm control. 3. Pulmonary hypertension. A right heart catheterization in August 2016, demonstrated a pulmonary artery pressure of 64/27 mmHg. 4. Mild coronary artery disease. 5. Obstructive sleep apnea on CPAP. The patient has a CPAP device at home, which he uses nightly. ALLERGIES: None. SOCIAL HISTORY: The patient has a trivial history of smoking which he stopped 40 years ago. He dri nks about 2 alcoholic beverages daily. FAMILY HISTORY: Unremarkable. REVIEW OF SYSTEMS: A 10-point review of systems adds nothing to the history of present illness. PHYSICAL EXAMINATION: GENERAL: The patient is awake, alert, and in no acute distress. VITAL SIGNS : Blood pressure is 124/51 with a heart rate of 87. He is afebrile. Oxygen saturation 100% on the ventilator. HEENT: Normocephalic and atraumatic. No icterus. An endotracheal tube is in place. NECK: No adenopathy. Trachea is midline. CHEST: Clear to auscultation. CARDIAC: Regular rate and rhythm without murmur. ABDOMEN: Soft, nontender. Bowel sounds are present. EXTREMITIES: No clubbing, cyanosis, or edema. NEURO: Grossly intact, moving all extremities and following simple c ommands. LABORATORY: Sodium is 142 with a potassium of 4.0 and a creatinine of 1.0. Glucose is 239. The he moglobin is 12.9. Arterial blood gas shows a pH of 7.30 with a pO2 of 57, a CO2 of 36, and a bicarb lore of 19 on IMV with 100% oxygen and a tidal volume of 550 and 5 of PEEP. A chest x-ray shows va scular plethora with some mild cardiomegaly. Images reviewed. ASSESSMENT: 1. Mitral stenosis status post mitral valve replacement today. The patient is recovering well post operatively and will be extubated soon. 2. Now in normal sinus rhythm after a Hunt-Maze. 3. Pulmonary hypertension. This may have been due in part to the patient's mitral stenosis. This can be reassessed once he has recovered from surgery. If it persists, he should have an evaluation including overnight oximetry and possibly a CAT scan. 4. Anemia. This is mild and not unexpected given some blood loss during surgery, as well as diluti on. 5. Obstructive sleep apnea. The patient has a CPAP device at home. Once he is extubated, he can u se the hospital CPAP unit, until his home unit is brought in. RECOMMENDATIONS: 1. Continue to wean and extubate as tolerated. 2. Follow hemoglobin. 3. Use CPAP tonight until the patient can bring in their home CPAP unit. /[id number]/MODL
[2017-01-09 18:37] LABS: POTASSIUM 5.7 mEq/L (3.5-5.2)
[2017-01-09] MEDS ORDERED: ALBUMIN 5% 250 ML BOTTLE IV ONE (18:47)
[2017-01-09] MEDS ORDERED: ALBUMIN 5% 250 ML IV ONE (19:00)
[2017-01-09] MEDS ORDERED: METOPROLOL TARTRATE 5 MG/5 ML INJ IVP ONE (19:15)
[2017-01-09] MEDS ORDERED: AMIODARONE A.FIB-6HR INFSN (ORDER 2/3) IV ONE (19:30)
[2017-01-09] MEDS ORDERED: AMIODARONE A.FIB-LOAD DOSE(ORDER 1/3) IV ONE (19:30)
[2017-01-09] MEDS ORDERED: METOPROLOL TARTRATE 50 MG TAB PO ONE (19:30)
[2017-01-09] MEDS: SENNOSIDES/DOCUSATE SODIUM TAB PO SCH (20:31)
[2017-01-09] MEDS: ENOXAPARIN 80 MG/0.8 ML SYR SC SCH (20:31)
[2017-01-10] MEDS ORDERED: AMIODARONE A.FIB-18HR INFSN (ORDER 3/3) IV ONE (01:00)
[2017-01-10 03:59] LABS: % IMMATURE GRANULYOCYTES 0.7 % (0.0-1.1); ABSOLUTE IMMATURE GRANULOCYTES 0.15 10^3/uL (0.00-0.10); ADD DIFF? NO; ADD MORPH? NO; ADD SCAN? NO; ATYPICAL LYMPHOCYTE FLAG 0 (0-99); FRAGMENT RBC FLAG 0 (0-99); HEMATOCRIT 34.1 % (40.0-51.0); HEMOGLOBIN 11.1 g/dL (13.7-17.5); LEFT SHIFT FLG 40 (0-99); LIPEMIA HEMOLYSIS FLAG 80 (0-99); MEAN CELL HEMOGLOBIN 29.4 pg (27.9-34.1); MEAN CELL HEMOGLOBIN CONCENTR. 32.6 g/dL (32.4-36.7); MEAN CELL VOLUME 90.5 fL (81.5-99.8); MEAN PLATELET VOLUME 10.5 fL (8.7-11.7); PLATELET CLUMPS FLAG 10 (0-99); PLATELET COUNT 151 10^3/uL (150-400); RED BLOOD CELL COUNT 3.77 10^6/uL (4.40-6.38); RED CELL DISTRIBUTION WIDTH 15.4 % (11.5-15.2)
[2017-01-10 04:16] LABS: ANION GAP 12 mEq/L (8-16); CALCIUM 8.4 mg/dL (8.5-10.4); CARBON DIOXIDE 26 mEq/l (22-31); CHLORIDE 107 mEq/L (97-110); CREATININE 1.6 mg/dL (0.7-1.3); GLOMERULAR FILTRATION RATE 41; GLUCOSE 184 mg/dL (70-100); INR 1.75 (0.83-1.16); POTASSIUM 4.4 mEq/L (3.5-5.2); PROTIME(PATIENT) 20.5 SEC (12.0-15.0); SODIUM 145 mEq/L (134-144)
--- NOTE | 2017-01-10 07:05 | SOAPPROG ---
SOAP Progress Note Assessment/Plan: Assessment: POD#2 Redo median sternotomy. Explant mitral ring. Implant #23 St Khai mechanical mitral valve. Tricuspid valve annuloplasty #34 Armendariz MC3 ring. CoxMaze IV. Sx post MVrepair stenosis - s/p redo with mechanical MVR. Stable early postop course. Antithrombotic prophylaxis with Coumadin, target INR 2-3. 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 Antithrombotic prophylaxis as per MV. Chronic class III dCHF - off CPB on low dose dopa. Successfully weaned off yest, but restarted last noc to augment renal perfusion pressures. No sig volume overload. Care with preload. BRANDON - Preop Cr 1.2. Bump to peak of 1.7 yest, primarily prerenal (relative hypotension). Started on dopa. MAP > 70 targetted. Longstanding persistent atrial fibrillation/chronic anticoagulation w Eliquis - Apaced post CM4 for JR. Recurrent AF last pm responsive to amio, but back to AJR. Currently Apacing for optimized hemodynamics moreso than dependence. Antithrombotic prophylaxis as per MV. Lovenox bridge pending INR > 1.9. Adjunctive baby ASA. Acute expected blood loss anemia - Stable. No blood products transfused. No evidence active bleeding. Formal anticoagulation started. KARELY on CPAP - Stable. Home device resumed. Plan: Cont Apacing at 90. Cont dopa at 2mcg/kg/min. No wean unless MAP consistently > 100. Cont amio as per protocol. Transition to orals (home dose 200 mg daily) tonight. Reduce Lovenox to once daily for renal dosing/pharm recs. Coumadin 2.5 mg today. Relax diuresis. Accept CVP < 18. Inc activity as tolerated. Consider rt pleural tube removal later today. Possible tx to SDU later today 01/10/17 07:02 Subjective: Doing ok. Improving appetite, stamina and ambulatory steadiness. Satisfactory analgesia. Objective: Vital Signs Temp Pulse Resp BP Pulse Ox 36.6 C 76 19 118/63 95 01/10/17 04:00 01/10/17 06:00 01/10/17 06:00 01/10/17 06:00 01/10/17 06:00 Laboratory Results 01/10/17 03:40 01/10/17 03:40 01/09/17 01/10/17 01/11/17 05:59 05:59 05:59 Intake Total 887.3 2215 Output Total 1875 2450 Balance -987.7 -235 PT 20.5 SEC (12.0-15.0) H 01/10/17 03:40 INR 1.75 (0.83-1.16) H 01/10/17 03:40 AF yest pm, promptly aborted on amio. SBPs 110 off dopa with marginal UOP, inc K and inc Cr. Fluid balance maintained with bolus lasix and low dose dopa. CTOP thin. Pleural drains approaching removal criteria. CXR-> basilar atelectasis, minimal pl effusions, mild pulm vasc congestion. Cr down sl with liberalized BP. Physical Exam - Physical Exam General Appearance: alert, no apparent distress Respiratory: rhonchi (tube noise), other (blakes x 3 to bulb suction, thin serosang drainage.) Cardiac/Chest: regular rate, rhythm (paced), other (Sternum grossly stable. Sternotomy CDI. A&V wires intact) Abdomen: non-tender, soft Skin: warm/dry Extremities: other (no visible edema) ICD10 Worksheet Patient Problems: Problems Problem Status Onset Acute blood loss anemia Acute S/P Maze operation for atrial fibrillation Acute ~01/08/17 S/P mitral valve replacement with metallic valve Acute ~01/08/17 S/P tricuspid valve repair Acute ~01/08/17 Aortic valve insufficiency Chronic Chronic anticoagulation Chronic Longstanding persistent atrial fibrillation Chronic Mitral stenosis, supravalvar mitral ring Chronic Tricuspid regurgitation Chronic
[2017-01-10] MEDS ORDERED: FUROSEMIDE 40 MG/4 ML VIAL IVP ONE ×2 (07:30→22:37)
[2017-01-10] MEDS: SENNOSIDES/DOCUSATE SODIUM TAB PO SCH ×2 (07:52→20:01)
[2017-01-10] MEDS: ASPIRIN 81 MG CHEWABLE TAB PO SCH (07:53)
[2017-01-10] MEDS: ENOXAPARIN 80 MG/0.8 ML SYR SC SCH (07:53)
[2017-01-10] MEDS: PANTOPRAZOLE SODIUM 40 MG TAB PO SCH (07:53)
[2017-01-10] MEDS: MULTIVITAMINS 1 EACH TAB PO SCH (07:53)
[2017-01-10 11:05] LABS: POTASSIUM 4.2 mEq/L (3.5-5.2)
[2017-01-10] MEDS: PSYLLIUM METAMUCIL 1 PKT PO SCH (12:47)
[2017-01-10] MEDS: INSULIN REGULAR HUMAN 100 UNIT/ML SC SCH ×3 (12:52→20:06)
--- NOTE | 2017-01-10 13:09 | PDINTPN ---
Auto Body Man Progress Note Assessment/Plan: Assessment: S/P MV repair: Recovering well Atrial Fibrillation: S/P Hunt-Maze. Now atrial paced, [place] rhythm was accelerated junctional Pulmonary HTN: Moderate-Severe: ? due to MS. KARELY: On CPAP. ? settings. Hyperkalemia: Improved Anemia: Mild, stable. Hyperglycemia: BSs still elevated on SSI BRANDON: Cr up today. Good urine output. Plan: CPAP with sleep. Continue SSI, increase dose if BSs remain elevated. Follow H/H, Cr, BSs Follow-up Pulmonary HTN as an outpatient. 01/10/17 13:10 Subjective: Feels OK, slept well last night with CPAP. Strength improving. Pain controlled Objective: Vital Signs Temp Pulse Resp BP Pulse Ox 36.7 C 90 21 H 107/62 94 01/10/17 08:00 01/10/17 10:00 01/10/17 10:00 01/10/17 10:00 01/10/17 10:00 Laboratory Results 01/10/17 03:40 01/10/17 10:40 01/09/17 01/10/17 01/11/17 05:59 05:59 05:59 Intake Total 887.3 2215 Output Total 1875 2450 300 Balance -987.7 -235 -300 PT 20.5 SEC (12.0-15.0) H 01/10/17 03:40 INR 1.75 (0.83-1.16) H 01/10/17 03:40 Physical Exam - Physical Exam General Appearance: alert, no apparent distress EENT: normal ENT inspection Neck: normal inspection Respiratory: lungs clear, normal breath sounds Cardiac/Chest: regular rate, rhythm, edema Abdomen: normal bowel sounds, non-tender, soft Skin: normal color, warm/dry Extremities: normal inspection Neuro/Psych: no motor/sensory deficits, alert, normal mood/affect, oriented x 3 ICD10 Worksheet Patient Problems: Problems Problem Status Onset Acute blood loss anemia Acute S/P Maze operation for atrial fibrillation Acute ~01/08/17 S/P mitral valve replacement with metallic valve Acute ~01/08/17 S/P tricuspid valve repair Acute ~01/08/17 Aortic valve insufficiency Chronic Chronic anticoagulation Chronic Longstanding persistent atrial fibrillation Chronic Mitral stenosis, supravalvar mitral ring Chronic Tricuspid regurgitation Chronic
[2017-01-10] MEDS ORDERED: WARFARIN SODIUM 2.5 MG TAB PO ONE (16:00)
[2017-01-10 16:58] LABS: POTASSIUM 4.2 mEq/L (3.5-5.2)
[2017-01-10] MEDS: ATORVASTATIN CALCIUM 20 MG TAB PO SCH (20:01)
[2017-01-10] MEDS: AMIODARONE HCL 200 MG TAB PO SCH (20:01)
[2017-01-11 00:34] LABS: POTASSIUM 3.8 mEq/L (3.5-5.2)
[2017-01-11] MEDS ORDERED: POTASSIUM Cl (KCl) 50 ML IV ONE (02:30)
[2017-01-11 04:15] LABS: INR 1.78 (0.83-1.16); PROTIME(PATIENT) 20.8 SEC (12.0-15.0)
[2017-01-11 04:37] LABS: ANION GAP 9 mEq/L (8-16); CALCIUM 8.7 mg/dL (8.5-10.4); CARBON DIOXIDE 28 mEq/l (22-31); CHLORIDE 106 mEq/L (97-110); CREATININE 1.3 mg/dL (0.7-1.3); GLOMERULAR FILTRATION RATE 53; GLUCOSE 107 mg/dL (70-100); POTASSIUM 4.1 mEq/L (3.5-5.2); SODIUM 143 mEq/L (134-144)
[2017-01-11 04:48] LABS: % IMMATURE GRANULYOCYTES 0.8 % (0.0-1.1); ABSOLUTE IMMATURE GRANULOCYTES 0.14 10^3/uL (0.00-0.10); ADD DIFF? NO; ADD MORPH? NO; ADD SCAN? NO; ATYPICAL LYMPHOCYTE FLAG 0 (0-99); FRAGMENT RBC FLAG 0 (0-99); HEMATOCRIT 31.8 % (40.0-51.0); HEMOGLOBIN 10.5 g/dL (13.7-17.5); LEFT SHIFT FLG 20 (0-99); LIPEMIA HEMOLYSIS FLAG 80 (0-99); MEAN CELL HEMOGLOBIN 29.7 pg (27.9-34.1); MEAN CELL VOLUME 89.8 fL (81.5-99.8); MEAN PLATELET VOLUME 10.6 fL (8.7-11.7); PLATELET CLUMPS FLAG 10 (0-99); PLATELET COUNT 125 10^3/uL (150-400); RED BLOOD CELL COUNT 3.54 10^6/uL (4.40-6.38); RED CELL DISTRIBUTION WIDTH 15.3 % (11.5-15.2)
--- NOTE | 2017-01-11 08:15 | SOAPPROG ---
SOAP Progress Note Assessment/Plan: Assessment: POD#3 Redo median sternotomy. Explant mitral ring. Implant #23 St Khai mechanical mitral valve. Tricuspid valve annuloplasty #34 Armendariz MC3 ring. CoxMaze IV. Sx post MVrepair stenosis - s/p redo with mechanical MVR. Stable early postop course. Antithrombotic prophylaxis with Coumadin, target INR 2-3. 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 Antithrombotic prophylaxis as per MV. Chronic class III dCHF - off CPB on low dose dopa. Maintained on low dose to augment renal perfusion pressures. No sig volume overload. Care with preload. BRANDON - Preop Cr 1.2. Bump to peak of 1.7 POD#1, primarily prerenal (relative hypotension). Cr back down to 1.3 on dopa w MAP > 70. Longstanding persistent atrial fibrillation/chronic anticoagulation w Eliquis - Apaced post CM4 for JR. Recurrent AF POD#1 responsive to amio, but back to AJR. Apaced at 90 overnoc for optimized hemodynamics. Now in SR 60s, without triggering AAI backup. Antithrombotic prophylaxis as per MV. Lovenox bridge pending INR > 1.9. Adjunctive baby ASA indefinitely. Acute expected blood loss anemia - Stable. No blood products transfused. No evidence active bleeding. Formal anticoagulation started. KARELY on CPAP - Stable. Home device resumed. DM2 - Diet controlled. Preop A1c 6.5%. Postop hyperglycemia managed with insulin gtt, transitioning to SSI. No significant correctional needs. Likely can discontinue monitoring within 48hrs. Plan: Backup Apacing at 60. Stop dopa. Restart for MAP < 68. Cont home dose amio 200mg daily. Increase Lovenox back to BID dosing (as per pharmacy renal dosing) Coumadin 3 mg today. Bolus lasix prn CVP > 15. Inc activity as tolerated. SDU status. PCU later today or tomorrow. 01/11/17 08:11 Subjective: Feels well. Improving strength and stamina. Good appetite. Satisfactory analgesia. No acute concerns. Objective: Vital Signs Temp Pulse Resp BP Pulse Ox 36.8 C 90 14 125/60 H 95 01/11/17 03:55 01/11/17 07:00 01/11/17 07:00 01/11/17 07:00 01/11/17 07:00 Laboratory Results 01/11/17 03:50 01/11/17 03:50 01/10/17 01/11/17 01/12/17 05:59 05:59 05:59 Intake Total 2215 143 Output Total 2450 2750 Balance -235 -2607 PT 20.8 SEC (12.0-15.0) H 01/11/17 03:50 INR 1.78 (0.83-1.16) H 01/11/17 03:50 Apacing at 90 overnoc. Underlying rhythm sinus 60s. Backup rate decreased to 60. Dopa at 2 mcg for MAPs 75-80. Excellent diuresis w normalizing Cr. CXR-> basilar atelectasis, tiny rt pleural effusion INR rising appropriately. Physical Exam - Physical Exam General Appearance: alert, no apparent distress Respiratory: lungs clear Cardiac/Chest: regular rate, rhythm, other (Sternum grossly stable. Sternotomy CDI. TCPWs intact.) Abdomen: non-tender, soft Skin: warm/dry Extremities: swelling (trace) ICD10 Worksheet Patient Problems: Problems Problem Status Onset Acute blood loss anemia Acute S/P Maze operation for atrial fibrillation Acute ~01/08/17 S/P mitral valve replacement with metallic valve Acute ~01/08/17 S/P tricuspid valve repair Acute ~01/08/17 Aortic valve insufficiency Chronic Chronic anticoagulation Chronic Longstanding persistent atrial fibrillation Chronic Mitral stenosis, supravalvar mitral ring Chronic Tricuspid regurgitation Chronic
[2017-01-11] MEDS ORDERED: ENOXAPARIN 80 MG/0.8 ML SYR SC SCH (09:00)
[2017-01-11] MEDS: SENNOSIDES/DOCUSATE SODIUM TAB PO SCH ×2 (09:08→20:24)
[2017-01-11] MEDS: PANTOPRAZOLE SODIUM 40 MG TAB PO SCH (09:09)
[2017-01-11] MEDS: MULTIVITAMINS 1 EACH TAB PO SCH (09:09)
[2017-01-11] MEDS: ASPIRIN 81 MG CHEWABLE TAB PO SCH (09:09)
[2017-01-11] MEDS: INSULIN REGULAR HUMAN 100 UNIT/ML SC SCH ×4 (09:10→22:06)
[2017-01-11] MEDS: PSYLLIUM METAMUCIL 1 PKT PO SCH (12:23)
--- NOTE | 2017-01-11 14:12 | PDINTPN ---
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 Now atrial paced, lower [place] rhythm was accelerated junctional Pulmonary HTN: Moderate-Severe: ? due to MS. KARELY: On CPAP. ? settings. Hyperkalemia: Normalized Anemia: Mild, down a bit today. No signs active bleeding. Hyperglycemia: BSs 100s SSI BRANDON: Cr down today. Good urine output. Plan: CPAP with sleep. Continue SSI, increase dose if BSs remain elevated. Follow H/H, Cr, BSs Follow-up Pulmonary HTN as an outpatient. 01/11/17 14:04 Subjective: Feels better, pain controlled, good appetite, slept well with CPAP, strength better Objective: Vital Signs Temp Pulse Resp BP Pulse Ox 37.2 C 60 17 113/58 L 100 01/11/17 12:00 01/11/17 12:00 01/11/17 12:00 01/11/17 12:00 01/11/17 12:00 Laboratory Results 01/11/17 03:50 01/11/17 03:50 01/10/17 01/11/17 01/12/17 05:59 05:59 05:59 Intake Total 2215 143 Output Total 2450 2750 220 Balance -235 -2607 -220 PT 20.8 SEC (12.0-15.0) H 01/11/17 03:50 INR 1.78 (0.83-1.16) H 01/11/17 03:50 CXR: Stable bibasilar atelectasis. Images reviewed. Physical Exam - Physical Exam General Appearance: alert, no apparent distress EENT: normal ENT inspection Neck: normal inspection Respiratory: lungs clear, normal breath sounds Cardiac/Chest: regular rate, rhythm, edema Abdomen: normal bowel sounds, non-tender Skin: normal color, warm/dry Extremities: normal inspection Neuro/Psych: alert, normal mood/affect, oriented x 3 ICD10 Worksheet Patient Problems: Problems Problem Status Onset Acute blood loss anemia Acute S/P Maze operation for atrial fibrillation Acute ~01/08/17 S/P mitral valve replacement with metallic valve Acute ~01/08/17 S/P tricuspid valve repair Acute ~01/08/17 Aortic valve insufficiency Chronic Chronic anticoagulation Chronic Longstanding persistent atrial fibrillation Chronic Mitral stenosis, supravalvar mitral ring Chronic Tricuspid regurgitation Chronic
[2017-01-11] MEDS ORDERED: WARFARIN SODIUM 3 MG TAB PO ONE (16:00)
[2017-01-11] MEDS: ENOXAPARIN 80 MG/0.8 ML SYR SC SCH (20:24)
[2017-01-11] MEDS: ATORVASTATIN CALCIUM 20 MG TAB PO SCH (20:25)
[2017-01-11] MEDS: AMIODARONE HCL 200 MG TAB PO SCH (20:25)
[2017-01-12 05:38] LABS: HEMATOCRIT 28.3 % (40.0-51.0); HEMOGLOBIN 9.4 g/dL (13.7-17.5); MEAN CELL HEMOGLOBIN 29.8 pg (27.9-34.1); MEAN CELL HEMOGLOBIN CONCENTR. 33.2 g/dL (32.4-36.7); MEAN CELL VOLUME 89.8 fL (81.5-99.8); RED BLOOD CELL COUNT 3.15 10^6/uL (4.40-6.38)
[2017-01-12 05:48] LABS: INR 1.88 (0.83-1.16); PROTIME(PATIENT) 21.7 SEC (12.0-15.0)
[2017-01-12 05:56] LABS: ANION GAP 6 mEq/L (8-16); CALCIUM 8.1 mg/dL (8.5-10.4); CARBON DIOXIDE 29 mEq/l (22-31); CHLORIDE 104 mEq/L (97-110); CREATININE 1.2 mg/dL (0.7-1.3); GLOMERULAR FILTRATION RATE 58; GLUCOSE 113 mg/dL (70-100); SODIUM 139 mEq/L (134-144)
--- NOTE | 2017-01-12 07:04 | SOAPPROG ---
SOAP Progress Note Assessment/Plan: Assessment: POD#4 Redo median sternotomy. Explant mitral ring. Implant #23 St Khai mechanical mitral valve. Tricuspid valve annuloplasty #34 Armendariz MC3 ring. CoxMaze IV. Sx post MVrepair stenosis - s/p redo with mechanical MVR. Stable early postop course. Antithrombotic prophylaxis with Coumadin, target INR 2-3. 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 Antithrombotic prophylaxis as per MV. Chronic class III dCHF - off CPB on low dose dopa. Temporarily maintained on low dose to augment renal perfusion pressures. No sig volume overload. Care with preload. BRANDON - Preop Cr 1.2. Bump to peak of 1.7 POD#1, primarily prerenal (relative hypotension). Resolved with liberalized BP. Longstanding persistent atrial fibrillation/chronic anticoagulation w Eliquis - Apaced post CM4 for JR. Recurrent AF POD#1 responsive to amio. AJR/SB since with occ AAI backup. Antithrombotic prophylaxis as per MV. Lovenox bridge pending INR > 1.9. Adjunctive baby ASA indefinitely. Acute expected blood loss anemia - Stable. No blood products transfused. No evidence active bleeding. Anticoagulation resumed. KARELY on CPAP - Stable. Home device resumed. DM2 - Diet controlled. Preop A1c 6.5%. Postop hyperglycemia managed with insulin gtt, transitioning to SSI. Decreasing correctional needs. Likely can discontinue monitoring tomorrow. Plan: Decrease backup Apacing to 48. Ck EKG. Cont home dose amio 200mg daily if in sinus, stop amio if in junctional rhythm. Cont BID Lovenox thru today. Coumadin 5 mg today. Resume home dose pm lasix. Cont inc activity as tolerated. Baseline postop echo today. Dispo - Home w HHC in 1-2 days. 01/12/17 07:02 Subjective: Feels well. +BMs. No concerns. Objective: Vital Signs Temp Pulse Resp BP Pulse Ox 36.8 C 60 15 116/56 L 88 L 01/12/17 04:00 01/12/17 04:00 01/12/17 04:00 01/12/17 04:00 01/12/17 04:00 Laboratory Results 01/12/17 05:30 01/12/17 05:30 0501/12/17 01/13/17 05:59 05:59 05:59 Intake Total 143 375 Output Total 2750 570 Balance -2607 -195 PT 21.7 SEC (12.0-15.0) H 01/12/17 05:30 INR 1.88 (0.83-1.16) H 01/12/17 05:30 Apaced 60 while sleeping. Underlying rate 50s with unclear PWs. Stable BP. Almost off O2. CXR-> inc basilar aeration, decr pulm vasc congestion. Excellent fluid balance. Stable labs. Physical Exam - Physical Exam General Appearance: alert, no apparent distress Respiratory: lungs clear Cardiac/Chest: regular rate, rhythm, other (Sternotomy CDI. TCPWs intact) Abdomen: non-tender, soft Skin: warm/dry Extremities: other (no visible edema) ICD10 Worksheet Patient Problems: Problems Problem Status Onset Acute blood loss anemia Acute S/P Maze operation for atrial fibrillation Acute ~01/08/17 S/P mitral valve replacement with metallic valve Acute ~01/08/17 S/P tricuspid valve repair Acute ~01/08/17 Aortic valve insufficiency Chronic Chronic anticoagulation Chronic Longstanding persistent atrial fibrillation Chronic Mitral stenosis, supravalvar mitral ring Chronic Tricuspid regurgitation Chronic
[2017-01-12] MEDS: MULTIVITAMINS 1 EACH TAB PO SCH (08:53)
[2017-01-12] MEDS: INSULIN REGULAR HUMAN 100 UNIT/ML SC SCH ×4 (08:54→21:53)
[2017-01-12] MEDS: PANTOPRAZOLE SODIUM 40 MG TAB PO SCH (08:54)
[2017-01-12] MEDS: ASPIRIN 81 MG CHEWABLE TAB PO SCH (08:54)
[2017-01-12] MEDS: ENOXAPARIN 80 MG/0.8 ML SYR SC SCH ×2 (08:55→21:00)
[2017-01-12] MEDS ORDERED: FUROSEMIDE 20 MG TAB PO SCH (09:00)
[2017-01-12] MEDS ORDERED: POTASSIUM CL 20 MEQ TAB PO SCH (09:00)
[2017-01-12] MEDS ORDERED: POTASSIUM CL 20 MEQ TAB PO ONE (09:00)
[2017-01-12] MEDS ORDERED: FUROSEMIDE 40 MG TAB PO SCH ×2 (09:00)
--- NOTE | 2017-01-12 09:24 | CPEKG ---
Heart Rate: 60 RR Interval: 1000 P-R Interval: 231 QRSD Interval: 106 QT Interval: 584 QTC Interval: 584 P [employer]: 0 QRS [employer]: 88 T Wave [employer]: 53 EKG Severity - ABNORMAL ECG - EKG Impression: SINUS RHYTHM EKG Impression: LOW VOLTAGE IN FRONTAL LEADS EKG Impression: PROLONGED QT INTERVAL EKG Impression: COMPARED WITH 01 SEP 2016, QT LONGER, AXIS LESS RIGHTWARD Electronically Signed By: Kimberly Sena 12-Jan-2017 13:31:03
--- NOTE | 2017-01-12 10:40 | ECHO ---
[id number] + + [id number] : : [place] [address] : : [phone] + Adult Echocardiographic Report + -----+ :Name: GISELA WILSON Date: 01/12/2017 08:03 AM BP: 110/59 mmHg : : Hospital Admission Number: [id number] Location : 211: :: 1935 Gender: Male Height: 68 in : :Age: 81 yrs Race: WH,White Weight: 171 lb : :Reason For Study: s/p MVR#23 st khai mechanical/ TVA #34 : :ring BSA: 1.9 meters2 : :History: redo MVR and TVR : + -----+ MMode/2D Measurements \T\ Calculations IVSd: 1.3 cm RVDd: 4.7 cm FS: 22.9 % Ao root diam: LVPWd: 1.1 cm LVIDd: 5.0 cm EDV(Teich): 3.8 cm LVIDs: 3.9 cm 119.4 ml ESV(Teich): 64.7 ml EF(Teich): 45.8 % LVLd ap4: 9.3 cm SV(MOD-sp4): EDV(MOD-sp4): 72.0 ml 160.0 ml LVLs ap4: 8.8 cm ESV(MOD-sp4): 88.0 ml EF(MOD-sp4): 45.0 % Normal Measurement Values: + + :LVIDd (3.5-5.7cm) IVSd (0.6-1.1cm) LVPWd (0.6-1.1cm) Aortic Root (2.0-3.7cm)Left Atrium (1.5-4.0cm): :LV Vol(d) (76-115ml) LV Vol(s) (29-48ml) Ejec Fraction (50-65%)PV Farrukh (0.6- 1.2m/s) TV Farrukh (0.4-1.0m/s) : :MV E Farrukh (0.8-1.0m/s)MV A Farrukh (0.3-1.0m/s)LVOT Farrukh (0.7-1.2m/s) Asc Ao Farrukh ( 0.9-1.8m/s) : + + Doppler Measurements \T\ Calculations MV V2 mean: MV P1/2t max farrukh: Ao V2 max: AI max farrukh: 101.9 cm/sec 195.5 cm/sec 123.8 cm/sec 381.4 cm/sec MV mean PG: MV P1/2t: 103.4 msec Ao max PG: AI max P.2 mmHg MVA(P1/2t): 2.1 cm2 6.1 mmHg 58.2 mmHg MV V2 VTI: MV dec slope: AI dec slope: 63.9 cm 553.9 cm/sec2 231.3 cm/sec2 AI P1/2t: 483.0 msec LV V1 max: TV V2 max: PA V2 max: TR max farrukh: 59.3 cm/sec 94.7 cm/sec 93.4 cm/sec 265.0 cm/sec LV V1 max PG: TV max P.6 mmHg PA max PG: TR max P.4 mmHg TV V2 mean: 3.5 mmHg 28.1 mmHg 52.9 cm/sec TV mean P.3 mmHg TV V2 VTI: 29.0 cm Left Ventricle The left ventricle is normal in size. There is mild concentric left ventricular hypertrophy. Left ventricular systolic function is low normal. Ejection Fraction = 50-55%. Septal motion is consistent with post-operative state. Right Ventricle The right ventricle is moderately dilated. The right ventricular systolic function is moderate to severely reduced. Atria Dilated left atrium. The right atrium is moderate to severely dilated. Mitral Valve S/P redo MVR #23 St Khai mechanical. The MVR appears well seated. Mean gradient across the valve is 5mmHg which is within normal limits for this type and size valve. There is trace to mild mitral regurgitation. Tricuspid Valve There is a TVA #34 ring. There is no tricuspid stenosis. There is mild tricuspid regurgitation. Right ventricular systolic pressure is 33mmHg. Aortic Valve The aortic valve is trileaflet. There is no aortic stenosis. Mild to moderate aortic regurgitation. Pulmonic Valve The pulmonic valve is normal in structure and function. Great Vessels The aortic root is normal size. Pericardium/Pleural Small pericardial effusion. Conclusion A two-dimensional transthoracic echocardiogram with M-mode and Doppler was performed. The patient is bradycardic during the study. Left ventricular systolic function is low normal. There is mild concentric left ventricular hypertrophy. Septal motion is consistent with post-operative state. There are no segmental wall motion abnormalities. The right ventricle is moderately dilated. The right ventricular systolic function is moderate to severely reduced. Dilated left atrium. The right atrium is moderate to severely dilated. S/P redo MVR #23 St Khai mechanical. The MVR appears well seated. Mean gradient across the valve is 5mmHg which is within normal limits for this type and size valve. There is trace to mild mitral regurgitation. There is a TVA #34 ring. There is mild tricuspid regurgitation. Right ventricular systolic pressure is 33mmHg. Mild to moderate aortic regurgitation. Small pericardial effusion. Ejection Fraction = 50-55%. Final Reading Physician: Tiffanie Arora signed on 01/12/2017 10:39 AM Ordering Physician: Suha Braun Performed By: Elizabeth Barker
[2017-01-12] MEDS: PSYLLIUM METAMUCIL 1 PKT PO SCH (12:14)
[2017-01-12] MEDS ORDERED: ATROPINE SULFATE 1 MG/ML VIAL IVP PRN (14:00)
[2017-01-12] MEDS ORDERED: WARFARIN SODIUM 5 MG TAB PO ONE (16:00)
[2017-01-12] MEDS: SENNOSIDES/DOCUSATE SODIUM TAB PO PRN (21:00)
[2017-01-12] MEDS: ATORVASTATIN CALCIUM 20 MG TAB PO SCH (21:00)
[2017-01-13 05:47] LABS: INR 2.08 (0.83-1.16); PROTIME(PATIENT) 23.5 SEC (12.0-15.0)
[2017-01-13 05:53] LABS: ANION GAP 7 mEq/L (8-16); CALCIUM 8.2 mg/dL (8.5-10.4); CARBON DIOXIDE 28 mEq/l (22-31); CHLORIDE 103 mEq/L (97-110); CREATININE 1.1 mg/dL (0.7-1.3); GLOMERULAR FILTRATION RATE > 60; GLUCOSE 109 mg/dL (70-100); POTASSIUM 4.1 mEq/L (3.5-5.2); SODIUM 138 mEq/L (134-144)
[2017-01-13] MEDS ORDERED: POTASSIUM CL 20 MEQ TAB PO ONE (07:50)
[2017-01-13] MEDS ORDERED: FUROSEMIDE 40 MG/4 ML VIAL IVP ONE (07:50)
[2017-01-13] MEDS ORDERED: FUROSEMIDE 40 MG TAB PO SCH (09:00)
--- NOTE | 2017-01-13 09:03 | SOAPPROG ---
TONE Progress Note Assessment/Plan: POD#5 Redo median sternotomy. Explant mitral ring. Implant #23 St Khai mechanical mitral valve. Tricuspid valve annuloplasty #34 Armendariz MC3 ring. Hunt Maze IV. Severe MS with h/o MV repair - s/p redo with mechanical MVR. Antithrombotic prophylaxis with ASA/Coumadin/Lovenox bridge with INR goal 2.5-3.5 Secondary TR - Amenable to ring annuloplasty. Antithrombotic prophylaxis as per MV. Chronic class III dCHF - Continue home Lasix dose. BRANDON - Resolved. Monitor. Longstanding persistent atrial fibrillation - s/p CM4 with post-op JR/PAF. Antithrombotic prophylaxis as per MV. Acute expected blood loss anemia - Stable. No blood products transfused. No evidence active bleeding. Anticoagulation resumed. KARELY on CPAP - Stable. Home device resumed. DM2 - Diet controlled. Preop A1c 6.5%. Postop hyperglycemia managed with insulin gtt/ISS. Monitoring stopped. Subjective: Feels well. Denies pain/SOB. Objective: Vital Signs Temp Pulse Resp BP Pulse Ox 36.7 C 64 17 125/68 H 92 01/13/17 06:46 01/13/17 06:46 01/13/17 06:46 01/13/17 06:46 01/13/17 06:46 Laboratory Results 01/12/17 05:30 01/13/17 05:25 01/12/17 01/13/17 01/14/17 05:59 05:59 05:59 Intake Total 375 760 Output Total 570 480 Balance -195 280 PT 23.5 SEC (12.0-15.0) H 01/13/17 05:25 INR 2.08 (0.83-1.16) H 01/13/17 05:25 Physical Exam - Physical Exam General Appearance: WD/WN, alert, no apparent distress EENT: No scleral icterus (R), No scleral icterus (L) Neck: normal inspection Respiratory: No respiratory distress Cardiac/Chest: bradycardia Abdomen: non-tender, soft, No distended Extremities: pedal edema Neuro/Psych: no motor/sensory deficits, alert, normal mood/affect, oriented x 3 ICD10 Worksheet Patient Problems: Problems Problem Status Onset Acute blood loss anemia Acute S/P Maze operation for atrial fibrillation Acute ~01/08/17 S/P mitral valve replacement with metallic valve Acute ~01/08/17 S/P tricuspid valve repair Acute ~01/08/17 Aortic valve insufficiency Chronic Chronic anticoagulation Chronic Longstanding persistent atrial fibrillation Chronic Mitral stenosis, supravalvar mitral ring Chronic Tricuspid regurgitation Chronic
[2017-01-13] MEDS: MULTIVITAMINS 1 EACH TAB PO SCH (09:41)
[2017-01-13] MEDS: PANTOPRAZOLE SODIUM 40 MG TAB PO SCH (09:41)
[2017-01-13] MEDS: ASPIRIN 81 MG CHEWABLE TAB PO SCH (09:41)
[2017-01-13] MEDS: INSULIN REGULAR HUMAN 100 UNIT/ML SC SCH (12:18)
[2017-01-13] MEDS ORDERED: FUROSEMIDE 20 MG TAB PO SCH (14:00)
[2017-01-13] MEDS: PSYLLIUM METAMUCIL 1 PKT PO SCH (15:19)
[2017-01-13] MEDS ORDERED: WARFARIN SODIUM 5 MG TAB PO ONE (16:00)
[2017-01-13] MEDS: ATORVASTATIN CALCIUM 20 MG TAB PO SCH (20:30)
[2017-01-13] MEDS: SENNOSIDES/DOCUSATE SODIUM TAB PO PRN (20:30)
[2017-01-14 06:46] LABS: ANION GAP 7 mEq/L (8-16); CALCIUM 8.2 mg/dL (8.5-10.4); CARBON DIOXIDE 29 mEq/l (22-31); CHLORIDE 103 mEq/L (97-110); GLOMERULAR FILTRATION RATE > 60; GLUCOSE 115 mg/dL (70-100); POTASSIUM 4.1 mEq/L (3.5-5.2); SODIUM 139 mEq/L (134-144)
[2017-01-14 06:47] LABS: INR 2.55 (0.83-1.16); PROTIME(PATIENT) 27.7 SEC (12.0-15.0)
--- NOTE | 2017-01-14 07:41 | SOAPPROG ---
SOSHEILA Progress Note Assessment/Plan: POD#6 Redo median sternotomy. Explant mitral ring. Implant #23 St Khai mechanical MV. Tricuspid valve annuloplasty #34 Armendariz MC3 ring. Hunt Maze IV. Severe MS with h/o MV repair - s/p redo with mechanical MVR. Antithrombotic prophylaxis INR goal 2.5-3.5/. 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 Antithrombotic prophylaxis as per MV. Chronic class III dCHF - 2+ BL LE edema with b/l pleural effusions - Lasix 80 IV BID today with K repletion BRANDON - Resolved. Monitor. Longstanding persistent atrial fibrillation - s/p CM4 with post-op JR/PAF now SR in 80s. Antithrombotic prophylaxis as per MV. PW to be cut Sunday. Acute expected blood loss anemia - Stable. No blood products transfused. No evidence active bleeding. Anticoagulation resumed. KARELY on CPAP - Stable. Home device resumed. DM2 - Diet controlled. Preop A1c 6.5%. Postop hyperglycemia managed with insulin gtt/ISS. Monitoring stopped. Subjective: SOB today. Denies pain. Objective: Vital Signs Temp Pulse Resp BP Pulse Ox 36.7 C 73 14 126/68 H 96 01/14/17 07:09 01/14/17 07:09 01/14/17 07:09 01/14/17 07:09 01/14/17 07:09 Laboratory Results 01/12/17 05:30 01/14/17 06:20 01/13/17 01/14/17 01/15/17 05:59 05:59 05:59 Intake Total 760 875 Output Total 480 1200 Balance 280 -325 PT 27.7 SEC (12.0-15.0) H 01/14/17 06:20 INR 2.55 (0.83-1.16) H 01/14/17 06:20 Physical Exam - Physical Exam General Appearance: WD/WN, alert, mild distress (SOB) EENT: No scleral icterus (R), No scleral icterus (L) Neck: normal inspection Respiratory: lungs clear, other (SOB), No crackles, No rhonchi, No wheezing Cardiac/Chest: regular rate, rhythm Abdomen: non-tender, soft, No distended Skin: normal color, warm/dry Extremities: pedal edema Neuro/Psych: no motor/sensory deficits, alert, normal mood/affect, oriented x 3 ICD10 Worksheet Patient Problems: Problems Problem Status Onset Acute blood loss anemia Acute S/P Maze operation for atrial fibrillation Acute ~01/08/17 S/P mitral valve replacement with metallic valve Acute ~01/08/17 S/P tricuspid valve repair Acute ~01/08/17 Aortic valve insufficiency Chronic Chronic anticoagulation Chronic Longstanding persistent atrial fibrillation Chronic Mitral stenosis, supravalvar mitral ring Chronic Tricuspid regurgitation Chronic
[2017-01-14] MEDS ORDERED: POTASSIUM CL 20 MEQ TAB PO ONE ×3 (08:46→18:00)
[2017-01-14] MEDS ORDERED: FUROSEMIDE 40 MG/4 ML VIAL IVP STA (08:46)
[2017-01-14] MEDS ORDERED: FUROSEMIDE 40 MG/4 ML VIAL IVP ONE (08:58)
[2017-01-14] MEDS: ASPIRIN 81 MG CHEWABLE TAB PO SCH (09:09)
[2017-01-14] MEDS: MULTIVITAMINS 1 EACH TAB PO SCH (09:09)
[2017-01-14] MEDS: PANTOPRAZOLE SODIUM 40 MG TAB PO SCH (09:09)
[2017-01-14] MEDS: SENNOSIDES/DOCUSATE SODIUM TAB PO PRN (09:25)
[2017-01-14] MEDS: PSYLLIUM METAMUCIL 1 PKT PO SCH (12:54)
[2017-01-14] MEDS ORDERED: FUROSEMIDE 100 MG/10 ML VIAL IVP ONE (15:00)
[2017-01-14] MEDS ORDERED: FUROSEMIDE 80 MG in D5W 50 ML IV ONE (15:00)
[2017-01-14] MEDS ORDERED: WARFARIN SODIUM 2.5 MG TAB PO ONE (16:00)
[2017-01-14 16:47] LABS: POTASSIUM 4.1 mEq/L (3.5-5.2)
[2017-01-14] MEDS: ATORVASTATIN CALCIUM 20 MG TAB PO SCH (19:36)
[2017-01-15 06:37] LABS: INR 2.82 (0.83-1.16)
[2017-01-15 06:46] LABS: ANION GAP 8 mEq/L (8-16); CALCIUM 8.3 mg/dL (8.5-10.4); CARBON DIOXIDE 28 mEq/l (22-31); CHLORIDE 103 mEq/L (97-110); GLOMERULAR FILTRATION RATE > 60; GLUCOSE 118 mg/dL (70-100); POTASSIUM 4.5 mEq/L (3.5-5.2); SODIUM 139 mEq/L (134-144)
[2017-01-15] MEDS: PANTOPRAZOLE SODIUM 40 MG TAB PO SCH (08:19)
[2017-01-15] MEDS: ASPIRIN 81 MG CHEWABLE TAB PO SCH (08:19)
[2017-01-15] MEDS: MULTIVITAMINS 1 EACH TAB PO SCH (08:19)
--- NOTE | 2017-01-15 08:30 | SOAPPROG ---
SOSHEILA Progress Note Assessment/Plan: POD#7 Redo median sternotomy. Explant mitral ring. Implant #23 St Khai mechanical MV. Tricuspid valve annuloplasty #34 Armendariz MC3 ring. Hunt Maze IV. Severe MS with h/o MV repair - s/p redo with mechanical MVR. Antithrombotic prophylaxis INR goal 2.5-3.5. 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 Antithrombotic prophylaxis as per MV. Chronic class III dCHF - 2+ BL LE edema with b/l pleural effusions - continue Lasix today. BRANDON - Resolved. Monitor. Longstanding persistent atrial fibrillation - s/p CM4 with post-op JR/SR/PAF. Antithrombotic prophylaxis as per MV. BB challenge today - PW to remain another day. Acute expected blood loss anemia - Stable. No blood products transfused. No evidence active bleeding. Anticoagulation resumed. KARELY on CPAP - Stable. Home device resumed. DM2 - Diet controlled. Preop A1c 6.5%. Postop hyperglycemia managed with insulin gtt/ISS. Monitoring stopped. Subjective: Feels better today. Still some SOB. Objective: Vital Signs Temp Pulse Resp BP Pulse Ox 36.8 C 80 24 H 118/62 94 01/15/17 08:00 01/15/17 08:00 01/15/17 08:00 01/15/17 08:00 01/15/17 08:00 Laboratory Results 01/12/17 05:30 01/15/17 06:10 01/14/17 01/15/17 01/16/17 05:59 05:59 05:59 Intake Total 875 1300 Output Total 1200 2450 200 Balance -325 -1150 -200 PT 30.0 SEC (12.0-15.0) H 01/15/17 06:10 INR 2.82 (0.83-1.16) H 01/15/17 06:10 Physical Exam - Physical Exam General Appearance: WD/WN, alert, no apparent distress EENT: No scleral icterus (R), No scleral icterus (L) Neck: normal inspection Respiratory: No respiratory distress Cardiac/Chest: irregularly irregular Abdomen: non-tender, soft, No distended Skin: normal color, warm/dry Extremities: pedal edema Neuro/Psych: no motor/sensory deficits, alert, normal mood/affect, oriented x 3 ICD10 Worksheet Patient Problems: Problems Problem Status Onset Acute blood loss anemia Acute S/P Maze operation for atrial fibrillation Acute ~01/08/17 S/P mitral valve replacement with metallic valve Acute ~01/08/17 S/P tricuspid valve repair Acute ~01/08/17 Aortic valve insufficiency Chronic Chronic anticoagulation Chronic Longstanding persistent atrial fibrillation Chronic Mitral stenosis, supravalvar mitral ring Chronic Tricuspid regurgitation Chronic
[2017-01-15] MEDS ORDERED: FUROSEMIDE 100 MG/10 ML VIAL IVP SCH (09:14)
[2017-01-15] MEDS ORDERED: WARFARIN SODIUM 1 MG TAB PO ONE (10:00)
[2017-01-15] MEDS: POTASSIUM CL 20 MEQ TAB PO SCH ×2 (10:27→13:52)
[2017-01-15] MEDS: FUROSEMIDE 80 MG in D5W 50 ML IV SCH ×3 (10:27→20:41)
[2017-01-15] MEDS: METOPROLOL TARTRATE 25 MG TAB PO SCH ×2 (10:28→20:39)
[2017-01-15] MEDS: PSYLLIUM METAMUCIL 1 PKT PO SCH (13:52)
[2017-01-15 15:40] LABS: POTASSIUM 4.7 mEq/L (3.5-5.2)
[2017-01-15] MEDS ORDERED: WARFARIN SODIUM 5 MG TAB PO ONE (16:00)
[2017-01-15] MEDS: ATORVASTATIN CALCIUM 20 MG TAB PO SCH (20:40)
[2017-01-16 04:12] LABS: HEMATOCRIT 30.1 % (40.0-51.0); HEMOGLOBIN 9.8 g/dL (13.7-17.5); MEAN CELL HEMOGLOBIN 29.5 pg (27.9-34.1); MEAN CELL HEMOGLOBIN CONCENTR. 32.6 g/dL (32.4-36.7); MEAN CELL VOLUME 90.7 fL (81.5-99.8); RED BLOOD CELL COUNT 3.32 10^6/uL (4.40-6.38); RED CELL DISTRIBUTION WIDTH 15.2 % (11.5-15.2)
[2017-01-16 04:22] LABS: INR 2.76 (0.83-1.16); PROTIME(PATIENT) 29.5 SEC (12.0-15.0)
[2017-01-16 04:24] LABS: ANION GAP 6 mEq/L (8-16); CALCIUM 8.4 mg/dL (8.5-10.4); CARBON DIOXIDE 30 mEq/l (22-31); CHLORIDE 102 mEq/L (97-110); GLOMERULAR FILTRATION RATE > 60; GLUCOSE 115 mg/dL (70-100); POTASSIUM 4.1 mEq/L (3.5-5.2); SODIUM 138 mEq/L (134-144)
[2017-01-16] MEDS: ASPIRIN 81 MG CHEWABLE TAB PO SCH (08:27)
[2017-01-16] MEDS: FUROSEMIDE 80 MG TAB PO SCH ×2 (08:28→15:11)
[2017-01-16] MEDS: PANTOPRAZOLE SODIUM 40 MG TAB PO SCH (08:30)
[2017-01-16] MEDS: MULTIVITAMINS 1 EACH TAB PO SCH (08:30)
[2017-01-16] MEDS: METOPROLOL TARTRATE 25 MG TAB PO SCH ×2 (08:30→21:03)
[2017-01-16] MEDS ORDERED: POTASSIUM CL 20 MEQ TAB PO ONE (09:00)
--- NOTE | 2017-01-16 09:18 | SOAPPROG ---
SOAP Progress Note Assessment/Plan: Assessment: POD#8 Redo median sternotomy. Explant mitral ring. Implant #23 St Khai mechanical mitral valve. Tricuspid valve annuloplasty #34 Armendariz MC3 ring. CoxMaze IV. Sx post MVrepair stenosis - s/p redo with mechanical MVR. Stable early postop course. Antithrombotic prophylaxis with Coumadin, target INR 2.5-3.5. 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 Antithrombotic prophylaxis as per MV. Chronic class III dCHF - off CPB on low dose dopa. Temporarily maintained on low dose to augment renal perfusion pressures. No sig volume overload. Care with preload. BRANDON - Preop Cr 1.2. Bump to peak of 1.7 POD#1, primarily prerenal (relative hypotension). Resolved with liberalized BP. Longstanding persistent atrial fibrillation/chronic anticoagulation w Eliquis - Apaced post CM4 for AJR/SB. Recurrent AF POD#1 responsive to amio but oral amio d/cd for prolonged QTc and occ Apacing. BB challenge initiated yest for recurrent PAF. Rates remain > 55. Will ask cards to review rhythm, therapy and monitoring. Antithrombotic prophylaxis as per MV. Adjunctive baby ASA indefinitely. Acute expected blood loss anemia - Stable. No blood products transfused. No evidence active bleeding. Anticoagulation resumed. KARELY on CPAP - Stable. Home device resumed. DM2 - Diet controlled. Preop A1c 6.5%. Postop hyperglycemia managed with insulin gtt, transitioning to SSI. Correctional needs resolved and monitoring stopped. Plan: Cont metoprolol 25 mg BID. Keep TCPW x 1 more day. Cards to see re. rhythm. Switch to oral lasix, 80mg BID. KCl 20 mEq BID. Coumadin 1 mg today. Cont inc activity as tolerated. Dispo - Home w [facility] tomorrow if rhythm stable. 01/16/17 08:48 Subjective: Feels well. No c/o. Hopeful for home tomorrow. Objective: Vital Signs Temp Pulse Resp BP Pulse Ox 36.4 C 91 19 125/68 H 97 01/16/17 07:16 01/16/17 07:16 01/16/17 07:16 01/16/17 07:16 01/16/17 07:16 Laboratory Results 01/16/17 03:27 01/16/17 03:27 01/15/17 01/16/17 01/17/17 05:59 05:59 05:59 Intake Total 1300 940 Output Total 2450 3275 150 Balance -1150 -2335 -150 PT 29.5 SEC (12.0-15.0) H 01/16/17 03:27 INR 2.76 (0.83-1.16) H 01/16/17 03:27 One episode of SB 50s yest afternoon, o/w holding rates > 70s. Rhythm ?AF. BP and SpO2 ok. CXR -> small rt pl eff w bibasilar atelectasis. Excellent diuresis on IV lasix. Now neg 5kg relative to preop wt. Labs ok. INR therapeutic. - Pending Discharge Pending Discharge Within 24 Hours: Yes Pending Discharge Date: 01/17/17 Pending Discharge Time: 11:00 Physical Exam - Physical Exam General Appearance: alert, no apparent distress Respiratory: crackles (bases) Cardiac/Chest: other (irreg S1 & S2. Sternotomy CDI.) Abdomen: soft Skin: warm/dry Extremities: swelling (trace-1+ dependent) ICD10 Worksheet Patient Problems: Problems Problem Status Onset Acute blood loss anemia Acute S/P Maze operation for atrial fibrillation Acute ~01/08/17 S/P mitral valve replacement with metallic valve Acute ~01/08/17 S/P tricuspid valve repair Acute ~01/08/17 Aortic valve insufficiency Chronic Chronic anticoagulation Chronic Longstanding persistent atrial fibrillation Chronic Mitral stenosis, supravalvar mitral ring Chronic Tricuspid regurgitation Chronic
[2017-01-16] MEDS: POTASSIUM CL 20 MEQ TAB PO SCH ×2 (09:47→21:03)
[2017-01-16] MEDS: PSYLLIUM METAMUCIL 1 PKT PO SCH (12:14)
[2017-01-16] MEDS ORDERED: WARFARIN SODIUM 1 MG TAB PO ONE (16:00)
[2017-01-16] MEDS: ATORVASTATIN CALCIUM 20 MG TAB PO SCH (21:03)
[2017-01-17 05:39] LABS: INR 2.15 (0.83-1.16); PROTIME(PATIENT) 24.2 SEC (12.0-15.0)
[2017-01-17 06:23] LABS: ANION GAP 8 mEq/L (8-16); CALCIUM 8.3 mg/dL (8.5-10.4); CARBON DIOXIDE 30 mEq/l (22-31); CHLORIDE 99 mEq/L (97-110); GLOMERULAR FILTRATION RATE > 60; GLUCOSE 102 mg/dL (70-100); POTASSIUM 4.2 mEq/L (3.5-5.2); SODIUM 137 mEq/L (134-144)
--- NOTE | 2017-01-17 08:24 | SOAPPROG ---
SOAP Progress Note Assessment/Plan: Assessment: POD#9 Redo median sternotomy. Explant mitral ring. Implant #23 St Khai mechanical mitral valve. Tricuspid valve annuloplasty #34 Armendariz MC3 ring. CoxMaze IV. Sx post MVrepair stenosis - s/p redo with mechanical MVR. Stable early postop course. Antithrombotic prophylaxis with Coumadin, target INR 2.5-3.5. 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 Antithrombotic prophylaxis as per MV. Chronic class III dCHF - off CPB on low dose dopa. Temporarily maintained on low dose to augment renal perfusion pressures. Actively diuresing moderate volume overload. BRANDON - Preop Cr 1.2. Bump to peak of 1.7 POD#1, primarily prerenal (relative hypotension). Resolved with liberalized BP. Longstanding persistent atrial fibrillation/chronic anticoagulation w Eliquis - Apaced post CM4 for AJR/SB. Recurrent AF POD#1 responsive to amio but maintenance amio d/cd for prolonged QTc and occ Apacing. BB challenge initiated for recurrent PAF and seemingly well tolerated. Rates remain > 60, occ 90s- 100s. Cards suggest adjunctive short acting CCB. Possible PPM if recurrent ed. Antithrombotic prophylaxis as per MV. Adjunctive baby ASA indefinitely. Acute expected blood loss anemia - Stable. No blood products transfused. No evidence active bleeding. Anticoagulation resumed. KARELY on CPAP - Stable. Home device resumed. DM2 - Diet controlled. Preop A1c 6.5%. Postop hyperglycemia managed with insulin gtt, transitioning to SSI. Correctional needs resolved and monitoring stopped. Plan: Inc Coumadin to 2 mg today. Add Cardizem 30 mg q6h w conservative hold parameters. Dispo - Home tomorrow w [facility] if rhythm stable. 01/17/17 08:20 Subjective: Feels well. Improving ambulatory capacity. No acute concerns. Objective: Vital Signs Temp Pulse Resp BP Pulse Ox 36.6 C 91 16 109/70 93 01/17/17 07:18 01/17/17 07:18 01/17/17 07:18 01/17/17 07:18 01/17/17 07:18 Laboratory Results 01/16/17 03:27 01/17/17 04:13 01/16/17 01/17/17 01/18/17 05:59 05:59 05:59 Intake Total 940 1130 Output Total 3275 1875 150 Balance -2335 -745 -150 PT 24.2 SEC (12.0-15.0) H 01/17/17 04:13 INR 2.15 (0.83-1.16) H 01/17/17 04:13 In and out of AF w CVR, occ 100s. Less UOP on oral lasix, but still neg fluid balance. Labs ok. - Pending Discharge Pending Discharge Within 24 Hours: Yes Pending Discharge Date: 01/18/17 Pending Discharge Time: 11:00 Physical Exam - Physical Exam General Appearance: alert, no apparent distress Respiratory: decreased breath sounds (rt base) Cardiac/Chest: regular rate, rhythm, other (Sternum grossly stable. Sternotomy CDI. A wires removed without difficulty. V wires clipped at skin.) Abdomen: non-tender, soft Skin: warm/dry Extremities: swelling (1+ dependent) ICD10 Worksheet Patient Problems: Problems Problem Status Onset Acute blood loss anemia Acute S/P Maze operation for atrial fibrillation Acute ~01/08/17 S/P mitral valve replacement with metallic valve Acute ~01/08/17 S/P tricuspid valve repair Acute ~01/08/17 Aortic valve insufficiency Chronic Chronic anticoagulation Chronic Longstanding persistent atrial fibrillation Chronic Mitral stenosis, supravalvar mitral ring Chronic Tricuspid regurgitation Chronic
[2017-01-17] MEDS: FUROSEMIDE 80 MG TAB PO SCH ×2 (08:38→17:56)
[2017-01-17] MEDS: MULTIVITAMINS 1 EACH TAB PO SCH (08:38)
[2017-01-17] MEDS: METOPROLOL TARTRATE 25 MG TAB PO SCH ×2 (08:38→20:56)
[2017-01-17] MEDS: POTASSIUM CL 20 MEQ TAB PO SCH ×2 (08:38→20:56)
[2017-01-17] MEDS: ASPIRIN 81 MG CHEWABLE TAB PO SCH (08:38)
[2017-01-17] MEDS: DILTIAZEM 30 MG TAB PO SCH ×4 (12:44→22:42)
[2017-01-17] MEDS: PSYLLIUM METAMUCIL 1 PKT PO SCH (13:11)
[2017-01-17] MEDS ORDERED: WARFARIN SODIUM 2 MG TAB PO SCH (16:00)
[2017-01-17] MEDS: ATORVASTATIN CALCIUM 20 MG TAB PO SCH (20:56)
[2017-01-18 04:59] LABS: HEMATOCRIT 30.1 % (40.0-51.0); HEMOGLOBIN 9.7 g/dL (13.7-17.5)
[2017-01-18 05:01] LABS: INR 1.77 (0.83-1.16); PROTIME(PATIENT) 20.7 SEC (12.0-15.0)
[2017-01-18] MEDS: DILTIAZEM 30 MG TAB PO SCH (06:06)
[2017-01-18] MEDS ORDERED: POTASSIUM CL 20 MEQ TAB PO SCH (06:41)
--- NOTE | 2017-01-18 07:51 | SOAPPROG ---
TONE Progress Note Assessment/Plan: POD#10 Redo median sternotomy. Explant mitral ring. Implant #23 St Khai mechanical MV. Tricuspid valve annuloplasty #34 Armendariz MC3 ring. Hunt Maze IV. Severe MS with h/o MV repair - s/p redo with mechanical MVR. Antithrombotic prophylaxis INR goal 2.5-3.5. 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 Antithrombotic prophylaxis as per MV. Chronic class III dCHF - Mild fluid overload - continue Lasix BID BRANDON - Resolved. Monitor. Longstanding persistent atrial fibrillation - s/p CM4 with post-op JR/SR/PAF. Antithrombotic prophylaxis as per MV. BB/CCB well-tolerated. Acute expected blood loss anemia - Stable. No blood products transfused. No evidence active bleeding. Anticoagulation resumed. KARELY on CPAP - Stable. Home device resumed. DM2 - Diet controlled. Preop A1c 6.5%. Postop hyperglycemia managed with insulin gtt/ISS. Monitoring stopped. Subjective: No complaints this AM. OK with staying another night! Objective: Vital Signs Temp Pulse Resp BP Pulse Ox 36.7 C 77 16 112/67 95 01/18/17 04:00 01/18/17 04:00 01/18/17 04:00 01/18/17 04:00 01/18/17 04:00 Laboratory Results 01/18/17 04:03 01/18/17 04:03 01/17/17 01/18/17 01/19/17 05:59 05:59 05:59 Intake Total 1130 1120 Output Total 1875 1700 Balance -745 -580 PT 20.7 SEC (12.0-15.0) H 01/18/17 04:03 INR 1.77 (0.83-1.16) H 01/18/17 04:03 Physical Exam - Physical Exam General Appearance: WD/WN, alert, no apparent distress EENT: No scleral icterus (R), No scleral icterus (L) Neck: normal inspection Respiratory: No respiratory distress Cardiac/Chest: regular rate, rhythm Abdomen: non-tender, soft, No distended Skin: normal color, warm/dry Extremities: pedal edema Neuro/Psych: no motor/sensory deficits, alert, normal mood/affect, oriented x 3 ICD10 Worksheet Patient Problems: Problems Problem Status Onset Acute blood loss anemia Acute S/P Maze operation for atrial fibrillation Acute ~01/08/17 S/P mitral valve replacement with metallic valve Acute ~01/08/17 S/P tricuspid valve repair Acute ~01/08/17 Aortic valve insufficiency Chronic Chronic anticoagulation Chronic Longstanding persistent atrial fibrillation Chronic Mitral stenosis, supravalvar mitral ring Chronic Tricuspid regurgitation Chronic
[2017-01-18] MEDS: MULTIVITAMINS 1 EACH TAB PO SCH (09:44)
[2017-01-18] MEDS: ASPIRIN 81 MG CHEWABLE TAB PO SCH (09:44)
[2017-01-18] MEDS: FUROSEMIDE 80 MG TAB PO SCH ×2 (09:44→14:16)
[2017-01-18] MEDS: ENOXAPARIN 80 MG/0.8 ML SYR SC SCH ×2 (09:44→20:25)
[2017-01-18] MEDS: DILTIAZEM CD 120 MG CAP PO SCH (09:44)
[2017-01-18] MEDS: POTASSIUM CL 20 MEQ TAB PO SCH (09:45)
[2017-01-18] MEDS: METOPROLOL TARTRATE 25 MG TAB PO SCH ×2 (09:45→20:25)
[2017-01-18] MEDS: PSYLLIUM METAMUCIL 1 PKT PO SCH (12:35)
[2017-01-18 13:18] LABS: POTASSIUM 4.2 mEq/L (3.5-5.2)
[2017-01-18] MEDS ORDERED: WARFARIN SODIUM 5 MG TAB PO ONE (16:00)
[2017-01-18] MEDS: ATORVASTATIN CALCIUM 20 MG TAB PO SCH (20:25)
[2017-01-19 04:52] LABS: INR 1.77 (0.83-1.16); PROTIME(PATIENT) 20.7 SEC (12.0-15.0)
--- NOTE | 2017-01-19 07:55 | SOAPPROG ---
OTNE Progress Note Assessment/Plan: POD#11 Redo median sternotomy. Explant mitral ring. Implant #23 St Khai mechanical MV. Tricuspid valve annuloplasty #34 Armendariz MC3 ring. Hunt Maze IV. Severe MS with h/o MV repair - s/p redo with mechanical MVR. Antithrombotic prophylaxis INR goal 2.5-3.5. 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 Antithrombotic prophylaxis as per MV. Chronic class III dCHF - Mild fluid overload - continue Lasix BID. BRANDON - Resolved. Longstanding persistent atrial fibrillation - s/p CM4 with post-op JR/SR/PAF. Antithrombotic prophylaxis as per MV. BB/CCB well-tolerated. Acute expected blood loss anemia - Stable. No blood products transfused. No evidence active bleeding. Anticoagulation resumed. KARELY on CPAP - Stable. Home device resumed. DM2 - Diet controlled. Preop A1c 6.5%. Postop hyperglycemia managed with insulin gtt/ISS. Monitoring stopped. Subjective: Wants to go home. Knows how to inject Lovenox. Objective: Vital Signs Temp Pulse Resp BP Pulse Ox 36.9 C 82 16 125/63 H 92 01/19/17 04:00 01/19/17 04:00 01/19/17 04:00 01/19/17 04:00 01/19/17 04:00 Laboratory Results 01/18/17 04:03 01/18/17 12:55 01/18/17 01/19/17 01/20/17 05:59 05:59 05:59 Intake Total 1120 1140 Output Total 1700 1200 Balance -580 -60 PT 20.7 SEC (12.0-15.0) H 01/19/17 04:02 INR 1.77 (0.83-1.16) H 01/19/17 04:02 Physical Exam - Physical Exam General Appearance: WD/WN, alert, no apparent distress EENT: No scleral icterus (R), No scleral icterus (L) Neck: normal inspection Respiratory: No respiratory distress Cardiac/Chest: irregularly irregular Abdomen: non-tender, soft, No distended Skin: normal color, warm/dry Extremities: pedal edema Neuro/Psych: no motor/sensory deficits, alert, normal mood/affect, oriented x 3 ICD10 Worksheet Patient Problems: Problems Problem Status Onset Acute blood loss anemia Acute S/P Maze operation for atrial fibrillation Acute ~01/08/17 S/P mitral valve replacement with metallic valve Acute ~01/08/17 S/P tricuspid valve repair Acute ~01/08/17 Aortic valve insufficiency Chronic Chronic anticoagulation Chronic Longstanding persistent atrial fibrillation Chronic Mitral stenosis, supravalvar mitral ring Chronic Tricuspid regurgitation Chronic
[2017-01-19 08:46] VITALS: RESP 18
[2017-01-19] MEDS: FUROSEMIDE 80 MG TAB PO SCH (08:51)
[2017-01-19] MEDS: METOPROLOL TARTRATE 25 MG TAB PO SCH (08:51)
[2017-01-19] MEDS: DILTIAZEM CD 120 MG CAP PO SCH (08:51)
[2017-01-19] MEDS: ENOXAPARIN 80 MG/0.8 ML SYR SC SCH (08:51)
[2017-01-19] MEDS: POTASSIUM CL 20 MEQ TAB PO SCH (08:52)
[2017-01-19] MEDS: MULTIVITAMINS 1 EACH TAB PO SCH (08:52)
[2017-01-19] MEDS: ASPIRIN 81 MG CHEWABLE TAB PO SCH (08:52)
[2017-01-19 11:51] VITALS: BP 114/62; PULSE 87; TEMP 97.4; O2SAT 94
--- NOTE | 2017-01-19 12:35 | PDIAF ---
- Diagnosis Diagnosis: s/p redo sternotomy MVR (mechanical), TVA, Hunt-Maze 4 Code Status: Full Code - Medication Management Discharge Medications: Medications to Continue on Transfer Atorvastatin Calcium [Lipitor 20 mg (*)] 20 mg PO HS 12/27/16 [Last Taken ] Herbals/Supplements -Info Only 1 ea PO DAILY 12/27/16 [Last Taken Unknown] Multivitamins [Multivitamin (*)] 1 each PO DAILY 12/27/16 [Last Taken 01/07/17] Psyllium Husk (with Sugar) [Metamucil Packet] 3.4 gm PO DAILY@1200 12/27/16 [ Last Taken Unknown] Acetaminophen [Tylenol 325mg (*)] 325 - 650 mg PO Q4HRS PRN #0 tab 01/19/17 [ Last Taken Unknown] Aspirin [Aspirin 81mg (*)] 81 mg PO DAILY #30 tab.chew 01/19/17 [Last Taken Unknown] Diltiazem HCl [Cardizem Cd] 240 mg PO DAILY #30 cap.er.24h 01/19/17 [Last Taken Unknown] Enoxaparin [Lovenox 80 MG (*)] 80 mg SQ BID #7 syr 01/19/17 [Last Taken Unknown] Furosemide [Lasix 80 MG (*)] 80 mg PO BID@0900,1500 #60 tab 01/19/17 [Last Taken Unknown] Metoprolol Tartrate [Lopressor 25 mg (*)] 25 mg PO BID #60 tab 01/19/17 [Last Taken Unknown] Potassium Cl [Klor-Con 20 meq (*)] 20 meq PO DAILY #30 tab 01/19/17 [Last Taken Unknown] Warfarin Sodium [Coumadin 5MG (*)] 5 mg PO DAILY16 #30 tab 01/19/17 [Last Taken Unknown] Discharge Medications: Refer to the Discharge Home Medication list for PRN reason. PICC Care - Routine: N/A - Orders Services needed: Home Care, Registered Nurse, Physical Therapy, Occupational Therapy Home Care Face to Face: I certify that this patient was under my care and that I had the required [id number] encounter meeting the encounter requirements on the discharge day. My findings support the fact that the patient is homebound as defined in CMS Chapter 7 Medicare Benefits Manual 30.1.1, The condition of the patient is such that there exists a normal inability to leave home and consequently, leaving home would require a considerable and taxing effort. Oxygen: 2L NC Diet Recommendation: cardiac -low fat low salt, fluid restriction (use comment for amount) (1.5 L) Diet Texture: Regular Texture Diet, Thin Liquids, Meds Whole w/Liquids Weigh Patient: daily Bullock: Not applicable Wound Care Instructions: Wash wounds daily with soap and water and leave open to air. Activity/Weight Bearing Restrictions: Sternal precautions x 4 weeks. Avoid lifting > 10lbs with an outstretched arm. Avoid push/pull activities. Additional: Stop Lovenox SQ when INR is 2.5. Please check INR's daily until INR is 2.5. Elevate low legs at rest. Avoid prolonged standing or dangling. Log daily vital signs: weight, heart rate, blood pressure, pulse oximetry. Call [employer] for overnight weight gain > 2lbs, weekly gain > 5lbs or worsening leg swelling. Call [employer] for resting heart rate > 120 or < 60 OR for systolic blood pressure consistently < 90 or > 140. Target oxygen saturation > 89%. - Labs/Radiology PT/INR Date: 01/20/17 (Call Dr. Ward for Coumadin adjustments ([phone]) INR goal 2.5-2.5.) - Follow Up Care Current Providers and Referrals: Leatha Aleman MD [Primary Care Provider] - Jesse Ward MD [Medical Doctor] - Graham Archuleta DO [Doctor of Osteopathy] - 01/23/17 9:45 am
[2017-01-19] MEDS: PSYLLIUM METAMUCIL 1 PKT PO SCH (13:17)
--- NOTE | 2017-01-19 14:44 | PDDCSUM ---
Discharge Summary Discharge Summary: ADMISSION DATE: 01/08/17 DISCHARGE DATE: 01/19/17 ADMISSION DX: 1. Severe mitral valve stenosis with h/o mitral valve repair 2. Moderate tricuspid valve insufficiency 3. Longstanding persistent atrial fibrillation 4. Class III heart failure, diastolic 5. Diabetes mellitus, diet controlled DISCHARGE DX: 1. Severe mitral valve stenosis with h/o mitral valve repair 2. Moderate tricuspid valve insufficiency 3. Longstanding persistent atrial fibrillation 4. Class III heart failure, diastolic 5. Diabetes mellitus, diet controlled 6. Acute blood loss anemia 7. Acute kidney injury PROCEDURES 01/08/17, Graham Archuleta: 1. Reoperation mitral valve replacement with #[address] [employer] mechanical prosthesis, explant mitral valve annuloplasty ring 2. Tricuspid valve annuloplasty with #34 ring 3. Hunt-Maze 4 HOSPITAL COURSE BY PROBLEM LIST 1. Severe mitral valve stenosis - s/p reoperation with explant of mitral valve annuloplasty ring and implant of mechanical mitral valve prosthesis. Post-op ECHO showed well-functioning mitral valve. Coumadin prescribed for INR goal 2.5- 3.5 with lifelong duration. Discharged with Lovenox bridge. 2. Tricuspid valve insufficiency - s/p annuloplasty. Again, post-op ECHO showed well-functioning valve. Thromboprophylaxis as per MVR. 3. Longstanding persistent atrial fibrillation - s/p Hunt-Maze IV with post-op junctional, bradycardic and tachycardic rhythms. Rate and rhythm control with metoprolol and diltiazem. Pacemaker implantation deferred and home CardioNet monitoring arranged. Thromboprophylaxis as per MVR. 4. CHF class III - below pre-op weight on discharge with mild dependent edema. Lasix prescribed on discharge. 5. Acute kidney injury - secondary to intravascular depletion. Resolved early in hospital course. CONDITION Good DISPOSITION Home with RN, PT and OT services ACTIVITY Pt was instructed on sternal precautions, activity limitations, and which problems to call [facility] with. Please see Discharge Plan and Interagency Discharge Form in chart for specifics. D/C MEDICATIONS 1. Atorvastatin Calcium [Lipitor 20 mg (*)] 20 mg PO HS 2. Herbals/Supplements -Info Only 1 ea PO DAILY 3. Multivitamins [Multivitamin (*)] 1 each PO DAILY 4. Psyllium Husk (with Sugar) [Metamucil Packet] 3.4 gm PO DAILY 5. Acetaminophen [Tylenol 325mg (*)] 325 - 650 mg PO Q4HRS PRN 6. Aspirin [Aspirin 81mg (*)] 81 mg PO DAILY 7. Diltiazem HCl [Cardizem Cd] 240 mg PO DAILY 8. Enoxaparin [Lovenox 80 MG (*)] 80 mg SQ BID - until INR 2.5 9. Furosemide [Lasix 80 MG (*)] 80 mg PO BID@0900,1500 10. Metoprolol Tartrate [Lopressor 25 mg (*)] 25 mg PO BID 11. Potassium Cl [Klor-Con 20 meq (*)] 20 meq PO DAILY 12. Warfarin Sodium [Coumadin 5MG (*)] 5 mg PO DAILY16 PENDING STUDIES/LABS 1. CXR, INR, BMP prior to surgical follow-up 2. INR to be checked at home with Coumadin management by Jesse Ward 3. CardioNet monitoring as per [facility] F/U APPOINTMENTS 1. Graham Archuleta - 01/23/17, 9:45 AM 2. Jesse Ward 01/22/17
== END 2017-01-19 15:03 | disposition home health service (06) | DRG 220 ==
LOC: F2N 06:39 → F2W 01-11 14:46
PROVIDERS: ADMIT Thoracic Surgery (Cardiothoracic Vascular Surgery); ATTEND Thoracic Surgery (Cardiothoracic Vascular Surgery)
PROC: 5A1221Z Performance of Cardiac Output, Continuous (ICD-10-PCS; principal; 2017-01-08 08:15)
PROC: 02UJ0JZ Supplement Tricuspid Valve with Synthetic Substitute, Open Approach (ICD-10-PCS; principal; 2017-01-08 08:15)
PROC: 02580ZZ Destruction of Conduction Mechanism, Open Approach (ICD-10-PCS; principal; 2017-01-08 08:15)
PROC: 02L70CK Occlusion of Left Atrial Appendage with Extraluminal Device, Open Approach (ICD-10-PCS; principal; 2017-01-08 08:15)
PROC: 02RG0JZ Replacement of Mitral Valve with Synthetic Substitute, Open Approach (ICD-10-PCS; principal; 2017-01-08 08:15)
DX: I08.1 Rheumatic disorders of both mitral and tricuspid valves (principal); I48.1 Persistent atrial fibrillation; I42.9 Cardiomyopathy, unspecified; D62 Acute posthemorrhagic anemia; I50.32 Chronic diastolic (congestive) heart failure; N17.9 Acute kidney failure, unspecified; J98.11 Atelectasis; G35 Multiple sclerosis; I27.2 Other secondary pulmonary hypertension; I25.10 Atherosclerotic heart disease of native coronary artery without angina pectoris; G47.33 Obstructive sleep apnea (adult) (pediatric); E87.5 Hyperkalemia; E11.65 Type 2 diabetes mellitus with hyperglycemia; Z79.01 Long term (current) use of anticoagulants
CPT/HCPCS: 82947-QW; 92526-GN; 92610-GN; 97116-GP; 97161-GP; 97165-GO; 97530-GO; 97535-GO; G8978-GP-CJ; G8979-GP-CI; G8980-GP-CI; G8987-GO-CK; G8988-GO-CI; G8989-GO-CI; G8996-GN-CI; G8997-GN-CI; G8998-GN-CH; J0153; J0282; J0690; J1100; J1265; J1644; J1650; J1815; J1940; J2001; J2150; J2250; J2260; J2370; J2405; J2704; J2720; J2930; J3010; J7060; P9041

== ENCOUNTER → 2017-01-23 | Outpatient (CLI) | payer OTHER, BC | LOC: FIMAGING 08:59 | PROVIDERS: ATTEND Thoracic Surgery (Cardiothoracic Vascular Surgery) | DX: J90 Pleural effusion, not elsewhere classified (principal); I51.7 Cardiomegaly; Z95.2 Presence of prosthetic heart valve; I27.2 Other secondary pulmonary hypertension ==

== ENCOUNTER → 2017-01-30 | Outpatient (CLI) | payer OTHER, BC ==
[~2017-01-30] MED LIST changes: -AMINOCAPROIC ACID 5 GM/20 ML VIAL IV ONE; -CITRATE DEXTROSE SOLN 500 ML BAG MISC ONE; -INSULIN REGULAR HUMAN 100 UNIT in NS 100 ML IV ONE; +LIDOCAINE 1% 300 MG/30 ML SDV ONE; -LIDOCAINE 1% 5 ML SDV ID PRN; -MANNITOL 25% 12.5 GM/50 ML VIAL IV ONE; -NOREPINEPHRINE BITARTRATE 16 MG in NS 250 ML IV ONE; -NS 1,000 ML IV ONE; -PHENYLEPHRINE HCL 50 MG in NS 250 ML IV ONE; -SODIUM BICARBONATE 20 MEQ, LIDOCAINE 1% 10 ML in NORMOSOL-R 1,000 ML MISC ONE; -ceFAZolin 2 GM/DEXTROSE 100 ML IV ONE; -niCARdipine/NACL 200 ML IV ONE
== END ==
LOC: FIMAGING 12:54
PROVIDERS: ATTEND Thoracic Surgery (Cardiothoracic Vascular Surgery)
PROC: 0W9B3ZZ Drainage of Left Pleural Cavity, Percutaneous Approach (ICD-10-PCS; principal; 2017-01-30)
DX: J90 Pleural effusion, not elsewhere classified (principal); J98.11 Atelectasis; Z86.79 Personal history of other diseases of the circulatory system; Z98.890 Other specified postprocedural states

== ENCOUNTER 2017-01-31 12:55 | Day surgery (SDC) | payer OTHER, BC ==
[2017-01-31] MEDS ORDERED: NS 500 ML IV ONE (13:00)
[2017-01-31] MEDS ORDERED: MIDAZOLAM 2 MG/2 ML VIAL IVP ONE (13:00)
[2017-01-31] MEDS ORDERED: PROPOFOL 200 MG/20 ML VIAL IVP ONE (13:00)
[2017-01-31] MEDS ORDERED: fentaNYL 100 MCG/2 ML INJ IVP ONE (13:00)
[2017-01-31 13:48] LABS: INR 2.57 (0.83-1.16); PROTIME(PATIENT) 27.9 SEC (12.0-15.0)
[2017-01-31 13:49] LABS: APTT 41.5 SEC (23.0-38.0)
[2017-01-31 14:03] LABS: ANION GAP 9 mEq/L (8-16); CALCIUM 8.9 mg/dL (8.5-10.4); CARBON DIOXIDE 28 mEq/l (22-31); CHLORIDE 101 mEq/L (97-110); CREATININE 1.1 mg/dL (0.7-1.3); GLOMERULAR FILTRATION RATE > 60; GLUCOSE 118 mg/dL (70-100); MAGNESIUM 2.4 mg/dL (1.6-2.3); POTASSIUM 4.7 mEq/L (3.5-5.2); SODIUM 138 mEq/L (134-144)
[2017-01-31] MEDS ORDERED: ADENOSINE 6 MG/2 ML VIAL ONE (14:22)
[2017-01-31] MEDS ORDERED: ADENOSINE 6 MG/2 ML VIAL IVP PRN (14:27)
[2017-01-31] MEDS ORDERED: ADENOSINE 6 MG/2 ML VIAL IVP ONE (14:30)
--- NOTE | 2017-01-31 14:57 | CPEKG ---
Heart Rate: 74 RR Interval: 811 P-R Interval: 140 QRSD Interval: 104 QT Interval: 424 QTC Interval: 471 P [place]: 0 QRS [place]: 88 T Wave [place]: 124 EKG Severity - ABNORMAL ECG - EKG Impression: SINUS RHYTHM EKG Impression: VENTRICULAR PREMATURE COMPLEX EKG Impression: LOW VOLTAGE IN FRONTAL LEADS Electronically Signed By: Mason Salomon 31-Jan-2017 16:50:09
--- NOTE | 2017-01-31 16:50 | CPIP ---
[f rep st] INVASIVE CARDIAC PROCEDURE DATE OF PROCEDURE: 01/31/2017 CANCELLED CARDIOVERSION The patient arrived for his scheduled ISABEL cardioversion. INDICATION: Atrial fibrillation. Serial 12-lead EKGs were reviewed. He appears to be either in sinus rhythm or 3 :1 atrial tachycardia. P waves are very diminutive. He was given 6 mg of adenosine, followed by saline flush, on 2 separate occasions. He may have an underlying atrial tachycardia, but p waves are very small and there was baseline artifact. Because his ventricular rate was 70, he was lying flat, reported feeling much more comfortable since his large volume thoracentesis yesterday, and still has a pericardial friction rub, we elected to continue medical management and anticoagulation. If he has recurrent rapid AF, consider ISABEL guided DCCV. This was all discussed in detail with the patient, his , and daughter. Discussed with Dr. Kathe Jay #: [id number]/FREDDY ARMIJO
== END 2017-01-31 15:30 | disposition home or self-care (01) ==
LOC: FCATH 12:55
PROVIDERS: ATTEND Internal Medicine Cardiovascular Disease
DX: Z09 Encounter for follow-up examination after completed treatment for conditions other than malignant neoplasm (principal); I48.91 Unspecified atrial fibrillation; Z99.81 Dependence on supplemental oxygen
CPT/HCPCS: J0153

== ENCOUNTER → 2017-02-02 | Outpatient (CLI) | payer OTHER, BC | LOC: FIMAGING 10:51 | PROVIDERS: ATTEND Thoracic Surgery (Cardiothoracic Vascular Surgery) | DX: J90 Pleural effusion, not elsewhere classified (principal) ==

== ENCOUNTER → 2017-02-05 | Outpatient (CLI) | payer OTHER, BC | LOC: BHFA 08:30 | PROVIDERS: ATTEND Internal Medicine Cardiovascular Disease | DX: I34.9 Nonrheumatic mitral valve disorder, unspecified (principal) ==

== ENCOUNTER → 2017-02-06 | Outpatient (CLI) | payer OTHER, BC | LOC: FLAB 09:57 → EDSTATUS 09:59 → FIMAGING 10:00 | PROVIDERS: ATTEND Thoracic Surgery (Cardiothoracic Vascular Surgery) | DX: J90 Pleural effusion, not elsewhere classified (principal); I51.7 Cardiomegaly; J98.11 Atelectasis; Z98.890 Other specified postprocedural states ==

== ENCOUNTER → 2017-02-21 | Outpatient (CLI) | payer OTHER, BC | LOC: FIMAGING 08:44 | PROVIDERS: ATTEND Thoracic Surgery (Cardiothoracic Vascular Surgery) | DX: Z48.89 Encounter for other specified surgical aftercare (principal); Z95.2 Presence of prosthetic heart valve; J90 Pleural effusion, not elsewhere classified; J98.11 Atelectasis ==

== ENCOUNTER → 2018-12-04 | Outpatient (CLI) | payer OTHER, BC | LOC: BMCIMAGING 14:28 | PROVIDERS: ATTEND Internal Medicine Geriatric Medicine | DX: J98.4 Other disorders of lung (principal); I51.7 Cardiomegaly ==

== ENCOUNTER → 2018-12-09 | Outpatient (CLI) | payer OTHER, BC | LOC: BMCIMAGING 12:23 | PROVIDERS: ATTEND Internal Medicine Geriatric Medicine | DX: R31.9 Hematuria, unspecified (principal); R18.8 Other ascites ==

== ENCOUNTER 2018-12-23 12:45 | Inpatient (IN) | payer OTHER, BC ==
[2018-12-23 14:02] LABS: PLATELET COUNT 275 10^3/uL (150-400)
--- NOTE | 2018-12-23 14:11 | EDPHY ---
H & P Time Seen by Provider: 12/23/18 13:39 HPI/ROS: Chief complaint. Shortness of breath HPI. 83-year-old male presents emergency department with gradually worsening shortness of breath cysts and since and illness 3 weeks ago. He had fever at that time. The source of his infection was not clear. Yesterday he had fever to 99.9 degrees. Over the past 3 weeks he has had progressive shortness of breath and dyspnea on exertion. No chest pain. No urinary symptoms. No abdominal pain or vomiting or diarrhea. Decreased appetite. Mitral valve replacement 2 years ago. ROS 10 systems were reviewed and negative with the exception of the elements mentioned in the history of present illness Past Medical/Surgical History: Sleep apnea, mitral valve replaced air repair, appendectomy, parathyroidectomy, kidney stones, hypertension, atrial fibrillation on warfarin Social History: , nonsmoker, no alcohol Smoking Status: Former smoker Physical Exam: General Appearance: Alert well-developed male mild distress vital signs significant for heart rate 138 and O2 saturation 91% on room air Eyes: Pupils equal and round no pallor or injection. ENT, Mouth: Mucous membranes are moist. Respiratory: Bibasilar rales Cardiovascular: Irregularly irregular rate rhythm Gastrointestinal: Abdomen is soft and nontender, no masses, bowel sounds normal. Neurological: Awake and alert, sensory and motor exams grossly normal. Skin: Warm and dry, no rashes. Musculoskeletal: Neck is supple nontender. Extremities 2+ edema bilaterally Psychiatric: Patient is oriented X 3, there is no agitation. Constitutional: Initial Vital Signs Temperature (C) 36.7 C 12/23/18 12:46 Heart Rate 138 H 12/23/18 12:46 Respiratory Rate 22 H 12/23/18 12:46 Blood Pressure 112/77 12/23/18 12:46 O2 Sat (%) 91 L 12/23/18 12:46 O2 Delivery Mode Room Air Allergies/Adverse Reactions: No Known Allergies Allergy (Verified 12/07/16 11:29) Home Medications: Medication Instructions Recorded Atorvastatin Calcium [Lipitor 20 20 mg PO HS 12/27/16 mg (*)] Herbals/Supplements -Info Only 1 ea PO DAILY 12/27/16 Multivitamins [Multivitamin (*)] 1 each PO DAILY 12/27/16 Psyllium Husk (with Sugar) 3.4 gm PO DAILY@1200 12/27/16 [Metamucil Packet] Acetaminophen [Tylenol 325mg (*)] 325 - 650 mg PO Q4HRS PRN #0 tab 01/19/17 Aspirin [Aspirin 81mg (*)] 81 mg PO DAILY #30 tab.chew 01/19/17 Diltiazem HCl [Cardizem Cd] 240 mg PO DAILY #30 cap.er.24h 01/19/17 Enoxaparin [Lovenox 80 MG (*)] 80 mg SQ BID #7 syr 01/19/17 Furosemide [Lasix 80 MG (*)] 80 mg PO BID@0900,1500 #60 tab 01/19/17 Metoprolol Tartrate [Lopressor 25 25 mg PO BID #60 tab 01/19/17 mg (*)] Potassium Cl [Klor-Con 20 meq (*)] 20 meq PO DAILY #30 tab 01/19/17 Warfarin Sodium [Coumadin 5MG (*)] 5 mg PO DAILY16 #30 tab 01/19/17 Medical Decision Making - Diagnostics EKG Interpretation: EKG interpreted by me shows atrial fibrillation with normal axis. QRS is normal though low voltage. Right axis deviation. No significant ST elevation or depression. Ventricular response 138 Imaging Results: Imaging Impressions Chest X-Ray 12/23/18 13:53 Impression: 1. Suspect right lower lobe pneumonia with pleural effusion. 2. Compensated CHF. Chest x-ray interpreted by me shows CHF and likely right lower lobe infiltrate Procedures: IV normal saline, monitor Septic workup IV Rocephin after cultures ED Course/Re-evaluation: Point of care troponin is elevated at 0.8. However apparently the sample had been sitting for a period of time before being run. We will repeat this patient remains stable on re-evaluation without chest discomfort. Heart rate is approximately 100 while still in atrial fibrillation. Patient, his family and I discussed imaging and lab results. We discussed treatment plan including recommendation for admission. He expresses understanding and agreement I consulted discussed the case with Dr. Masood Peng, hospitalist, who agrees to the admission Differential Diagnosis: Atrial fibrillation with elevated ventricular response. CHF which is likely the cause of his shortness of breath. Febrile illness 3 weeks ago with evidence of pneumonia right lower lobe. He has been cultured and given antibiotics. Initial troponin is elevated and we are rechecking this. He does not have chest pain - Data Points Laboratory Results: Laboratory Results 12/23/18 13:05 05/06/19 13:05 12/23/18 12/23/18 12/23/18 13:05 13:05 13:05 WBC 11.40 10^3/uL H 10^3/uL (3.80-9.50) RBC 4.65 10^6/uL 10^6/uL (4.40-6.38) Hgb 13.4 g/dL L g/dL (13.7-17.5) Hct 40.4 % % (40.0-51.0) MCV 86.9 fL fL (81.5-99.8) MCH 28.8 pg pg (27.9-34.1) MCHC 33.2 g/dL g/dL (32.4-36.7) RDW 16.0 % H % (11.5-15.2) Plt Count 275 10^3/uL 10^3/uL (150-400) MPV 9.6 fL fL (8.7-11.7) Neut % (Auto) 89.6 % H % (39.3-74.2) Lymph % (Auto) 4.2 % L % (15.0-45.0) [place] % (Auto) 5.2 % % (4.5-13.0) Eos % (Auto) 0.2 % L % (0.6-7.6) Baso % (Auto) 0.3 % % (0.3-1.7) Nucleat RBC Rel Count 0.0 % % (0.0-0.2) Absolute Neuts (auto) 10.21 10^3/uL H 10^3/uL (1.70-6.50) Absolute Lymphs (auto) 0.48 10^3/uL L 10^3/uL (1.00-3.00) Absolute Monos (auto) 0.59 10^3/uL 10^3/uL (0.30-0.80) Absolute Eos (auto) 0.02 10^3/uL L 10^3/uL (0.03-0.40) Absolute Basos (auto) 0.03 10^3/uL 10^3/uL (0.02-0.10) Absolute Nucleated RBC 0.00 10^3/uL 10^3/uL (0-0.01) Immature Gran % 0.5 % % (0.0-1.1) Immature Gran # 0.06 10^3/uL 10^3/uL (0.00-0.10) RBC/WBC/PLT Morphology TNP Platelet Estimate TNP PT 25.5 SEC H SEC (12.0-15.0) INR 2.47 H (0.83-1.16) APTT 40.2 SEC H SEC (23.0-38.0) Sodium 133 mEq/L L mEq/L (135-145) Potassium 4.8 mEq/L mEq/L (3.5-5.2) Chloride 98 mEq/L mEq/L (97-110) Carbon Dioxide 21 mEq/l L mEq/l (22-31) Anion Gap 14 mEq/L mEq/L (6-14) BUN 28 mg/dL H mg/dL (7-23) Creatinine 1.1 mg/dL mg/dL (0.7-1.3) Estimated GFR > 60 Glucose 131 mg/dL H mg/dL (70-100) Calcium 8.8 mg/dL mg/dL (8.5-10.4) NT-Pro-B Natriuret Pep 35972 pg/mL H pg/mL (0-450) Departure - Departure Disposition: [facility] Inpatient Acute Clinical Impression: Elevated troponin Atrial fibrillation Qualifiers: Atrial fibrillation type: unspecified Qualified Code(s): I48.91 - Unspecified atrial fibrillation Pneumonia Qualifiers: Pneumonia type: due to unspecified organism Laterality: right Lung location: lower lobe of lung Qualified Code(s): J18.1 - Lobar pneumonia, unspecified organism Condition: Fair
[2018-12-23 14:17] LABS: INR 2.47 (0.83-1.16); PROTIME(PATIENT) 25.5 SEC (12.0-15.0)
--- NOTE | 2018-12-23 15:46 | CPEKG ---
Test Reason : OPEN Blood Pressure : / mmHG Vent. Rate : 138 BPM Atrial Rate : 136 BPM P-R Int : 216 ms QRS Dur : 100 ms QT Int : 330 ms P-R-T Axes : 000 162 -16 degrees QTc Int : 500 ms Atrial fibrillation Right axis deviation Low voltage, extremity leads Borderline prolonged QT interval Confirmed by Juan Francisco Campa ([id number]) on 12/23/2018 3:45:52 PM Referred By: PHYSICIAN ED Confirmed By:Juan Francisco Campa
[2018-12-23] MEDS ORDERED: DILTIAZEM HCL/D5W 125 ML IV SCH (16:00)
[2018-12-23] MEDS ORDERED: AZITHROMYCIN IV 500 MG in NS 250 ML IV SCH (16:00)
[2018-12-23] MEDS ORDERED: FUROSEMIDE 40 MG/4 ML VIAL IVP ONE (16:38)
[2018-12-23] MEDS: METOPROLOL TARTRATE 50 MG TAB PO SCH (21:09)
[2018-12-23] MEDS: ATORVASTATIN CALCIUM 20 MG TAB PO SCH (21:09)
--- NOTE | 2018-12-23 22:50 | GHP ---
[f rep st] HISTORY AND PHYSICAL DATE OF ADMISSION: 12/23/2018 CHIEF COMPLAINT: Shortness of breath with exertion and recent febrile upper respiratory illness. HISTORY OF PRESENT ILLNESS: The patient is a pleasant 83-year-old gentleman with a past medical hist ory of atrial fibrillation and chronic diastolic heart failure, as well as mitral valve replacement w ith a mechanical valve, who presented to the [facility] Emergency Room on 12/23/2018, with complaints of exertional shortness of breath. He had also added that he had a recent upper res piratory illness, including productive cough. Chest x-ray performed in the emergency room was notabl e for right lower lobe pneumonia with associated right-sided effusion. His brain natriuretic peptide was also quite elevated at 13,600. At that point in time, he was admitted for further evaluation a nd treatment. PAST MEDICAL HISTORY: Atrial fibrillation; chronic diastolic heart failure; severe mitral valve sten osis, status post mechanical mitral valve replacement; tricuspid valve insufficiency, status post yazan uloplasty; diabetes mellitus type 2. PAST SURGICAL HISTORY: Mitral valve replacement, tricuspid valve annuloplasty. MEDICATIONS: Aspirin 81 mg daily, atorvastatin 20 mg nightly, diltiazem 240 mg daily, Lasix 80 mg tw ice a day, metoprolol tartrate 50 mg twice a day, potassium chloride 20 mEq daily, Coumadin daily. ALLERGIES: No known drug allergies. FAMILY HISTORY: Dad in his 70s secondary to complications from leukemia. Mother at an adv anced age over the age of 100. SOCIAL HISTORY: Patient currently lives with his . 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 He has 3 marley ghters and 1 son. He is not a tobacco user. REVIEW OF SYSTEMS: CONSTITUTIONAL: Recent febrile illness. ENT: Recent upper respiratory infectio n. CARDIOVASCULAR: Positive for exertional shortness of breath. No chest tightness, palpitations o r syncope. RESPIRATORY: As above. GI: No nausea, vomiting, diarrhea, or constipation. : No re ports of any difficulty with urination. NEUROLOGIC: No complaints of any headaches or focal weaknes s. HEMATOLOGIC: No history of any deep vein thrombosis or pulmonary embolism. PSYCHIATRIC: No his tory of anxiety or depression. ENDOCRINE: No history of polyuria or heat intolerance. SKIN: No ne w skin rashes. MUSCULOSKELETAL: No focal joint pains. PHYSICAL EXAM: VITAL SIGNS: Temperature 36.7, blood pressure 113/87, heart rate 103, respirations 1 6, satting 95% on 2 L. APPEARANCE: In general, the patient appears comfortable. He is awake, alert , conversant, able to provide some history. HEENT: Extraocular movements intact. No scleral icteru s. Mucous membranes moist. NECK: Supple. No adenopathy appreciated. CHEST: Bibasilar crackles. Diminished breath sounds at right lung base. HEART: Irregular. Murmur consistent with mitral valv e replacement. ABDOMEN: Soft, nontender. : Note Bullock catheter in place. EXTREMITIES: Pitting edema 2+, both lower extremities, equal on both sides. NEUROLOGIC: Cranial nerves 2 through 12 mingo ear grossly intact with 5/5 strength in extremities. LABS: White blood cell count 11, hemoglobin 13, platelets 275. Sodium 133, potassium 4.8, chloride 98, bicarb 21, BUN 28, creatinine 1.1, glucose 131. INR is 2.4. Lactic acid 1.4. Troponin 0.80. B rain natriuretic peptide 13,600. IMAGING: Chest x-ray as detailed above. Chest CT: Moderate right pleural effusion. Small left pleural effusion. Cardiomegaly and pulmonary edema. Small amount of ascites. ASSESSMENT AND PLAN: 1. Acute hypoxic respiratory failure. Possibly multifactorial, but I think the larger component is heart failure related. Chest CT shows bilateral pleural effusions, right being greater than the left ; however, no definite infiltrate noted. However, patient did note recent febrile illness and has a mildly elevated white blood cell count. Treat for both pulmonary edema, as well as potential for pne umonia, and wean oxygen as able. 2. Acute on chronic diastolic heart failure. The patient was given a dose of IV Lasix today. He cu rrently takes 80 mg orally twice a day. We will continue diuresis here in the hospital with 60 mg tw ice a day. Repeat echocardiogram in the morning. 3. Atrial fibrillation with rapid ventricular response. Patient was tachycardic in the 130s when he first came in the hospital; however, this has gradually improved as he has come up to the floor. I think we can continue with his home rate-control agents, which include metoprolol 50 mg twice a day a nd diltiazem XR 240 mg daily. Continue telemetry monitoring. 4. Mitral valve replacement, mechanical. Continue anticoagulation to goal INR of 2.5 to 3.5. 5. Diabetes mellitus type 2. I do not see that he is on any oral diabetes medications or insulin. We will obtain a hemoglobin A1c with his morning labs for further clarification. 6. Deep venous thrombosis prophylaxis. Patient is anticoagulated. 7. Disposition. Considering the severity of his imaging, I suspect he will need at least 2 days of diuresis more aggressively here in the hospital, so I will admit him under inpatient status. /[id number]/MODL
[2018-12-24 04:16] LABS: PLATELET COUNT 230 10^3/uL (150-400)
[2018-12-24 04:24] LABS: INR 2.53 (0.83-1.16)
[2018-12-24] MEDS: METOPROLOL TARTRATE 50 MG TAB PO SCH (08:06)
[2018-12-24] MEDS: ASPIRIN 81 MG CHEWABLE TAB PO SCH (08:06)
[2018-12-24] MEDS ORDERED: METOPROLOL TARTRATE 25 MG TAB PO ONE (08:45)
--- NOTE | 2018-12-24 08:59 | HOSPPROG ---
Hospitalist Progress Note Assessment/Plan: AHRF 2/2 acute HF - h/o mechanical MVR. B/L pleural effusions, elevated BNP, JVD on exam. On just 1 LPM O2. -cont IV Lasix -monitor I&O's, daily wts -echo showed EF down to 10-15% which is significant drop from prior of 55% in 2017 -cardiology to consult Sepsis 2/2 enterococcal bacteremia - (HR, RR) concern for endocarditis with mechanical valve vs urinary source. Discussed with ID -change atbx to Ampicillin -send UCx 50-182 rbc's, only 10-15 wbc's on UA) -TTE this am, discussed with cardiology, no obvious veg on MV but likely will need ISABEL -ID to consult, CT abd non-cont to r/o stone -add on LFT's Mechanical valve on chronic anticoagulation - INR therapeutic -pharmacy to dose coumadin A fib in RVR - just received oral dilt and metoprolol this am and rate coming down from 140's to 110's -stop dilt with low EF -increase metoprolol to 100 mg bid -consider digoxin if additional rate control agent needed Elevated troponin - no chest pain, trending down, suspect strain 2/2 acute HF Diabetes - pt not on oral hypoglycemics -check a1c -defer SSI for now since bg's 100's Full code Dispo - cont inpt, high risk for decompensation with suspicion for endocarditis , acute HF and sepsis 30 min crit care Subjective: Pt feels a little better this am, breathing is improved. However, he becomes quite SOB after sitting up for exam. Denies CP. Some LE edema. No fevers overnight. Denies chills/rigors. Denies urinary symptoms. No N/V Objective: Vital Signs Temp Pulse Resp BP Pulse Ox 37.0 C 120 H 18 114/81 H 91 L 12/24/18 07:03 12/24/18 07:03 12/24/18 07:03 12/24/18 07:03 12/24/18 07:03 Microbiology 12/23/18 15:10 Blood Panel (PCR) - Final Blood Enterococcus Species Laboratory Results 12/24/18 03:45 12/24/18 03:45 12/23/18 12/24/18 12/25/18 05:59 05:59 05:59 Intake Total 725 Output Total 700 Balance 25 PT 26.0 SEC (12.0-15.0) H 12/24/18 03:45 INR 2.53 (0.83-1.16) H 12/24/18 03:45 - Physical Exam Constitutional: no apparent distress Eyes: PERRL Ears, Nose, Mouth, Throat: moist mucous membranes Cardiovascular: regular rate and rhythym, systolic murmur, JVD Respiratory: no respiratory distress, reduced air movement, inspiratory crackles Gastrointestinal: normoactive bowel sounds, soft, non-tender abdomen Skin: warm Musculoskeletal: full muscle strength, other (1+ b/l LE edema) Neurologic: AAOx3 Psychiatric: interacting appropriately ICD10 Worksheet Patient Problems: Problems Problem Status Onset Atrial fibrillation Acute Elevated troponin Acute Pneumonia Acute Acute blood loss anemia Acute S/P Maze operation for atrial fibrillation Acute ~01/08/17 S/P mitral valve replacement with metallic valve Acute ~01/08/17 S/P tricuspid valve repair Acute ~01/08/17 Aortic valve insufficiency Chronic Chronic anticoagulation Chronic Longstanding persistent atrial fibrillation Chronic Mitral stenosis, supravalvar mitral ring Chronic Tricuspid regurgitation Chronic
[2018-12-24] MEDS ORDERED: DILTIAZEM XR 240 MG CAP PO SCH (09:00)
[2018-12-24] MEDS ORDERED: FUROSEMIDE 40 MG/4 ML VIAL IVP SCH ×2 (09:00)
[2018-12-24] MEDS: AMPICILLIN SODIUM 2 GM in NS 100 ML IV SCH ×4 (09:25→20:07)
[2018-12-24] MEDS ORDERED: AMPICILLIN SODIUM 2 GM in NS 100 ML IV SCH (12:00)
[2018-12-24] MEDS ORDERED: METOPROLOL TARTRATE 50 MG TAB PO SCH ×2 (12:00→21:00)
--- NOTE | 2018-12-24 12:05 | ECHO ---
[email or web address] [address] [address] Main: [phone] Echocardiography Examination Transthoracic Name: GISELA WILSON MR#: [id number] Study Date: 12/24/2018 Study Time: 09:07 AM Date of : 1935 Age: 83 year(s) Height: 175.3 cm (69 in.) Weight: 77.57 kg (171 lb.) BSA: 1.93 m2 Gender: Male Examination: Echo Contrast: Image Quality: Rhythm: Atrial fibrillation Heart Rate: 105 bpm BP: 114 mmHg/81 mmHg Indication: Acute CHF Procedure Staff Referring Physician: Savings Counselor: Ronaldo Olivares RDCS Reading Physician: Alex Macario MD Requesting Provider: Ordering Physician: Masood Peng Indication: Acute CHF Measurements Chambers AV/MV Label Value Normal Value Label Value Normal Value LVOT Vmax 0.4 m/s (0.7m/s - 1.1m/s) AR (ERO) 0.32 cm2 LVOTd 2 cm (1.9cm - 2.1cm) AR PHT 0.47 s LVOT VTI 8.16 cm (18cm - 22cm) AR PHT 471 ms LVDd, MM 5.4 cm (4.2cm - 5.9cm) AR PISA Radius 0.7 cm LVDd, 2D 4.2 cm (4.2cm - 5.9cm) AR Reg. Fraction 215 % LVDs, MM 4.8 cm (2cm - 3.8cm) AR Reg. Volume 56 ml LVDs, 2D 3.9 cm (2.1cm - 4cm) AR Vena contracta 0.7 cm IVSd, MM 1.2 cm (0.6cm - 0.9cm) AR Vmax 3.68 m/s IVSd, 2D 1.2 cm (0.6cm - 1.1cm) AR VTI 176 cm LVPWd, MM 1.4 cm (0.6cm - 1cm) AV PGmax 4 mmHg LVPWd, 2D 1.2 cm (0.6cm - 1cm) AV PGmean 3 mmHg LVEF, BP 22 % (55% - 70%) AV Vmax 1.03 m/s LVEF, 2D 17 % (54% - 74%) STACEY (Vmax) 1.2 cm2 LVOT PGmean 0 mmHg STACEY (VTI) 1.3 cm2 LVOT Vmean 0.26 m/s MV E Vmax 1.58 m/s RVDd, 2D 4.9 cm (1.9cm - 3.8cm) MV VTI 28.7 cm LA Volume, BP 70 ml (18ml - 58ml) MVA D (continuity eq.) 0.9 cm2 LADs, 2D 4.5 cm (3cm - 4cm) MV PGmax 12 mmHg LAESV index, BP 36.3 ml/m2 MV PGmean 4 mmHg Patient: GISELA WILSON Study Date: 12/24/2018 Page 1 of 3 09:07 AM Additional Vessels TV/PV Label Value Normal Value Label Value Normal Value AoRoot, MM 3.3 cm (2.2cm - 3.7cm) RA Pressure 5 mmHg RVSP 41 mmHg TR Pmax 36 mmHg TR Vmax 2.99 m/s TV PGmax 6 mmHg TV PGmean 2 mmHg TV Vmax 1.22 m/s (0.3m/s - 0.7m/s) TV Vmax, Caliper 1.22 m/s (0.3m/s - 0.7m/s) TV Vmean 0.62 m/s TV VTI 26.2 cm ME End camargo Farrukh 0.77 cm/s PV PGmax 2 mmHg PV Vmax, Caliper 0.71 m/s (0.6m/s - 0.9m/s) Conclusions (1) Left ventricular systolic ejection fraction was severe reduced (20%) - mild LVH - septal wall flattening consistent with RV pressure/volume overload - atrial fibrillation was noted throughout this study (2) Mild to moderate RV dilation with severe systolic dysfunction (3) Mild biatrial dilation (4) Trivial MR with mechanical MVR - mean gradient was 4 mm Hg (5) Trileaflet aortic valve with moderate AI, and no sclerosis or stenosis (6) Mild TR though annuloplasty ring - RVSP was 41 mm Hg (7) Aorta measured 3.3 cm (8) No pericardial effusion (9) Clear visualization of the valves was not possible with surface echo. Would recommend ISABEL for better visualization Findings Left Ventricle: There is a flattened septum consistent with RV pressure/volume overload.. Left ventricle is normal in size. Moderately to severely reduced systolic LV function. The EF is visually estimated to be 20 %. EF range is estimated at 15 % - 20 %. There is mild concentric left ventricular hypertrophy. There is paradoxic septal motion suggestive of bundle branch block, paced cardiac rhythm, or prior cardiac surgery. Unable to assess Diastolic Dysfunction due to atrial fibrillation/a flutter. There is global LV hypokinesis. Right Ventricle: Mildly to moderately dilated right ventricle. Right ventricular systolic function is severely reduced. Left Atrium: The left atrium is mildly dilated. Right Atrium: The right atrium is mildly dilated. Mitral Valve: Trivial mitral regurgitation. There is a MVR #23 [facility] Mechanical. The MV appears well seated. The Mean gradient is 4 mmHg. There is no obvious vegetation on the valve. Aortic Valve: Moderate aortic regurgitation is present. There is no aortic stenosis. The aortic valve is trileaflet. Tricuspid Valve: Patient: GISELA WILSON Study Date: 12/24/2018 Page 2 of 3 09:07 AM Right Ventricular systolic pressure is measured at 41 mmHg. There is a TVA #34 ring. There is mild TR and mild pulmonary hypertension. Pulmonic Valve: Pulmonic leaflets are structurally normal. Aorta: The aorta is normal. The aortic root size in M-mode measures 3.3 cm. Aorta Measurements AoRoot, MM is 3.3 cm. Pericardium: No pericardial effusion. Exam Details Procedure Ordered: Echo (No Signature Object) Patient: GISELA WILSON Study Date: 12/24/2018 Page 3 of 3 09:07 AM [id number]
--- NOTE | 2018-12-24 12:37 | GCON ---
[f rep st] CONSULTATION INFECTIOUS DISEASES CONSULTATION DATE OF CONSULTATION: 12/24/2018 REFERRING PHYSICIAN: Katarina Dobson MD REASON FOR CONSULTATION: Enterococcal bacteremia with prosthetic mitral valve. HISTORY OF PRESENT ILLNESS: Patient is an 83-year-old male with a past medical history of prosthetic mitral valve and prior tricuspid valve annuloplasty in 2017, whom I am asked to see in consultation for enterococcal bacteremia. The patient describes developing fever with rigors approximately 3 week s prior to admission. Temperature peaked at 102.7. Symptoms lasted approximately 2 days and were as sociated with significant shortness of breath. The patient did not note significant cough. The jennifer ent did have a urinalysis which showed microscopic hematuria and he underwent ultrasound which did no t show any obstructive features or other lesions. The patient did not receive antibiotic therapy dur ing this time frame. Several days ago, the patient experienced recurrent fever with noting temperatures were not in e xcess of 100 degrees. He did not have recurrent rigors. However, his dyspnea had progressed and aft er evaluation at [facility], he was referred to the emergency department for further eval uation. He does not note any nausea, vomiting, diarrhea or abdominal pain. He has not experienced dysuria, u rgency or frequency. There has been no gross hematuria. Blood cultures were obtained at the time of his presentation yesterday, and 2 of 2 sets now show gram-positive cocci in chains with identificati on by PCR testing of Enterococcus species which is vancomycin susceptible. Urinalysis showed 50-182 red blood cells with 10-15 white blood cells and 1+ bacteria. Urine culture is pending. Initial con cern for pneumonia was raised based on chest x-ray and CT findings, and patient was started empirical ly on ceftriaxone and azithromycin. Earlier today, when cultures were identified as Enterococcus, hi s antibiotic therapy was transitioned to ampicillin. He has noted presence of lower extremity edema. He has not had myalgias, arthralgias or skin rash. Transthoracic echocardiogram has been performed with results currently pending. There is no recent travel. He has not experienced recent dental wo rk or dental problems. Given the above findings, I am now asked to assist in his ongoing management. PAST MEDICAL HISTORY: Atrial fibrillation, diastolic heart failure, history of mitral valve stenosis , tricuspid regurgitation, type 2 diabetes, nephrolithiasis approximately 25 years ago, hyperparathyr oidism. PAST SURGICAL HISTORY: Mitral valve replacement and tricuspid valve annuloplasty in 2017 (mitral yo ve was a revision), appendectomy, parathyroid gland removal. CURRENT MEDICATIONS: Status post ceftriaxone 1 g IV x2 doses and azithromycin 500 mg IV x1, ampicill in 2 g IV q.4 hours, aspirin 81 mg p.o. daily, Lipitor 20 mg p.o. q.h.s., diltiazem XR 240 mg p.o. da sha, Lasix 60 mg IV b.i.d., metoprolol 50 mg p.o. twice daily, warfarin 7.5 mg orally Sunday, Sunday , Sunday, , Sunday, with 5 mg on Sunday and Sunday. ALLERGIES: No known drug allergies. SOCIAL HISTORY: The patient does not smoke. He drinks 2 glasses of wine per week. No drug use hist ory. No unusual animal exposure. FAMILY HISTORY: Multiple family members on his mother's side with longevity; father of leukemia . REVIEW OF SYSTEMS: Outside that noted in the HPI, remainder of a 10-system review is unremarkable. PHYSICAL EXAMINATION: VITAL SIGNS: Temperature maximum 37.5, heart rate 120, respiratory rate 18, b lood pressure 114/81, oxygen saturation 91% on 1 L. GENERAL: Patient is dyspneic with increased res piratory effort. He appears nontoxic. HEENT: There is no scleral icterus, conjunctival injection, or conjunctival petechiae. Oropharynx shows dry mucous membranes with dentition in fair repair. The re is no nasal discharge. There is no sinus tenderness. NECK: Supple without palpable lymphadenopa thy or thyromegaly. CHEST: There are decreased breath sounds posteriorly, right greater than left, with this being present approximately 1/[address] up the lung field on the right; respiratory effort incr eased. CARDIOVASCULAR: Tachycardic, with irregularly irregular rhythm. Valve click is present. No murmurs appreciated. ABDOMEN: Soft, nontender, nondistended. No palpable organomegaly. Bowel shirley nds are present. MUSCULOSKELETAL: 1+ lower extremity edema. No cyanosis or clubbing. SKIN: There are no rashes present. No stigmata of endocarditis. The skin is warm and dry to touch. LYMPHATICS : No cervical, supraclavicular, or inguinal nodes palpable. NEUROLOGIC: Patient is alert and inter acts appropriately with the examiner. Cranial nerves 2-12 are grossly intact. Sensation is grossly intact. Muscle tone and bulk are normal. LABORATORY DATA: White blood cell count at time of presentation 11.4, 90% neutrophils; white blood c ell count today 8.2, 85% neutrophils. Hematocrit 38.0, platelets 230. Serum creatinine 1.0, glucose 108, AST 86, ALT 84, bilirubin 1.3, alkaline phosphatase 91, albumin 3.0, and BNP 13,600, procalcito deena 0.22, TSH 2.1. Urinalysis shows 50-182 red blood cells, 10-15 white blood cells, and 1+ bacteria . INR is 2.5. Venous lactate is 1.4. Blood cultures with 2 of 2 sets showing gram-positive cocci i n chains identified by PCR as vancomycin susceptible enterococcus, urine culture is pending. CT of c hest showing bilateral pleural effusions, right greater than left, with compressive atelectasis. Abdominal ultrasound on 12/09/2018, showed no evidence of hydronephrosis or mass. 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 This is accompanied by symptoms suggesting component of congestive heart failure. Potential sources for Enterococcus would also include urinary or intestinal etiologies. Given the prior history of nephrolithiasis and recent hematuria, will nee d to be sure no evidence of kidney stones present which could potentially contribute to increased ris k of urinary infection from Enterococcus. Await transthoracic echocardiographic findings with high l ikelihood that will need transesophageal echo to further assess for prosthetic valve endocarditis. RECOMMENDATIONS: 1. Agree with ampicillin 2 g IV q.4 hours. 2. Add ceftriaxone 2 g IV q.12 hours for synergy against Enterococcus given suspicion of endocarditi s. 3. Noncontrast pelvic CT scan to assess for nephrolithiasis. 4. Repeat blood cultures over time to assess for clearing of bacteremia. 5. I have reviewed with Cardiology with plans for transesophageal echocardiogram after transthoracic echocardiographic interpretation unless definitive findings noted on TTE. Thank you for this consultation. We will continue to follow the patient with you. /[id number]/MODL
--- NOTE | 2018-12-24 13:40 | ASMTCMCOM ---
CM Note CM Note Notes: 12/24/2018 Case Management Note Pt admitted for CHF and sepsis w/possible endocarditis. Per RN pt likely to transfer to ICU. Met w/pt Elsa and daughter Damaris [phone] to discuss d/c needs. 2017 pt had [facility] after heart surgery. Pt has not had previous SNF stays. Pt lives independently with in their own home. Daughter Damaris is nearby and grandkids help with lawncare. Pt and still drive and have no difficulties with groceries or meals. Pt unable to participate in therapy evals today d/t pt shortness of breath. Case Management d/c poc: to be determined. Case Management to follow. Date Signed: 12/24/2018 01:39 PM Electronically Signed By:Gina South RN
--- NOTE | 2018-12-24 14:11 | PDMN ---
Medical Necessity Medical necessity: Pt meets IP criteria per & MCG M-190; est los >2 mn for eval/tx of acute on chronic CHF w/acute hypoxic respiratory failure, AFIB w/RVR & sepsis secondary to enterococcal bacteremia w/concern for endocarditis; admit for further workup/monitoring, IV Lasix, IV abx & Cardiology/ID consults; comorbid advanced age, recent URI, MVR, diabetes; per order 12/23/18
--- NOTE | 2018-12-24 14:44 | PDCARCONS ---
Cardiology Consult Reason for Consult: Progressive dyspnea Chief Complaint: shortness of breath Requesting Physician: ER/Hospitalist team History of Present Illness: Patient is an 83 y/o male with history of MVR (mechanical, 01/03), chronic diastolic dysfunction (with an acute component at present), DM, atrial fibrillation (chronic s/p CM4 with MVR surgery), CAD, HTN, GERD, and KARELY, who presented to [facility] ER yesterday with progressive dyspnea and revisitation of fevers. About three weeks ago, the patient had noted pyrexia without cause. The symptoms seem to have resolved to some degree - there had been no fevers of late - until about three days ago. No chest pains or pressure. No PND or orthopnea. Dyspnea with very minimal activity was being appreciated, and given the acute, progressive nature of the dyspnea, ER evaluation was sought. Recent outpatient visit (12-09-18) with Dr. Gabe Ward of [facility] for a six month follow up. At that time, fevers were mentioned, but resolution had been noted. No issues with abnormal bleeding or bruising (with ongoing coumadin therapy for the MVR), less microscopic hematuria appreciated by PCP (Dr. Antoni Aleman). Echocardiography from 2016 (March 14) with LVEF of 60-65%, echo from 2017 with LVEF of about 30% (December 21). Today's echo with ejection fraction of 15-20%. BNP was elevated to >[id number] with (+) blood cultures (enterococcal), and ID consultation. No nausea or emesis has been noted. No diarrhea. Diaphoresis has been appreciated most recently. Fevers, once again, were noted 2-3 weeks ago, resolved, but then returned over the past 36-48 hours. Remainder of the 12 point review of systems was unremarkable History Information - Allergies/Home Medication List Allergies/Adverse Reactions: No Known Allergies Allergy (Verified 12/07/16 11:29) Home Medications: Atorvastatin Calcium [Lipitor 20 mg (*)] 20 mg PO HS 12/27/16 [Last Taken ] Herbals/Supplements -Info Only 1 ea PO DAILY 12/27/16 [Last Taken Unknown] Multivitamins [Multivitamin (*)] 1 each PO DAILY 12/27/16 [Last Taken 12/23/18] Metoprolol Tartrate [Lopressor 50 mg (*)] 50 mg PO BID 12/23/18 [Last Taken 02/05] Psyllium Husk/Aspartame [Metamucil Fiber Singles Packet] 3.4 gm PO DAILY@12 02/05 [Last Taken Unknown] Warfarin Sodium [Coumadin 5MG (*)] 5 mg PO MOFR 12/23/18 [Last Taken 12/23/18] Warfarin Sodium [Coumadin 5MG (*)] 7.5 mg PO SUTUWETHSA 12/23/18 [Last Taken 01/05] I have personally reviewed and updated: family history, medical history, social history, surgical history Past Medical History: - Past Medical History atrial fibrillation, coronary artery disease, diabetes type 2, GERD, hypertension Additional medical history: KARELY - Surgical History Reports: appendectomy Additional surgical history: mechanical MVR - Family History Positive for: non-pertinent - Social History Smoking Status: Former smoker Alcohol Use: None Drug Use: None Cardiac History - Cardiac History Past Cardiac History: CAD, MVR (mechanical) Cardiac Risk Factors: hypertension (>140/90), diabetes mellitus, age > 65, male Timing/Duration: Days Severity: moderate Severity Scale: 7 Location: substernal Activities at Onset: activity Modifying Factors: improves with: rest Associated Symptoms: diaphoresis, fever/chills, shortness of breath, weakness Age in Years: 75 or older Sex: Male Congestive Heart Failure History: Yes Hypertension History: Yes Stroke/TIA/Thromboembolism History: No Vascular Disease History: Yes Diabetes Mellitus: Yes [id number] Score: 6 Physical Exam Physical Exam: Temp Pulse Resp BP Pulse Ox 35.6 C L 115 H 29 H 124/86 H 94 12/24/18 11:25 12/24/18 11:25 12/24/18 11:25 12/24/18 11:25 12/24/18 11:25 O2 (L/minute) 2 Constitutional: no apparent distress, appears nourished, not in pain Eyes: PERRL, EOMI Ears, Nose, Mouth, Throat: moist mucous membranes, hearing normal, ears appear normal Cardiovascular: systolic murmur (crisp click), irregularly irregular, pulses symmetric bilaterally, edema, No JVD, No tachycardia Peripheral Pulses: 2+: dorsalis-pedis (R), dorsalis-pedis (L) Respiratory: no respiratory distress, reduced air movement, No inspiratory crackles, No respiratory distress Gastrointestinal: normoactive bowel sounds Skin: warm, no fluctuance, No rash Musculoskeletal: full muscle strength, no muscle tenderness Neurologic: AAOx3, sensation intact bilaterally, CN II-XII Intact Psychiatric: interacting appropriately, not anxious, not encephalopathic Lab and Imaging 12/24/18 03:45 12/24/18 03:45 WBC 8.15 10^3/uL (3.80-9.50) 12/24/18 03:45 RBC 4.46 10^6/uL (4.40-6.38) 12/24/18 03:45 Hgb 12.6 g/dL (13.7-17.5) L 12/24/18 03:45 Hct 38.0 % (40.0-51.0) L 12/24/18 03:45 MCV 85.2 fL (81.5-99.8) 12/24/18 03:45 MCH 28.3 pg (27.9-34.1) 12/24/18 03:45 MCHC 33.2 g/dL (32.4-36.7) 12/24/18 03:45 RDW 15.9 % (11.5-15.2) H 12/24/18 03:45 Plt Count 230 10^3/uL (150-400) 12/24/18 03:45 MPV 9.2 fL (8.7-11.7) 12/24/18 03:45 Neut % (Auto) 85.0 % (39.3-74.2) H 12/24/18 03:45 Lymph % (Auto) 6.5 % (15.0-45.0) L 12/24/18 03:45 Wells % (Auto) 7.4 % (4.5-13.0) 12/24/18 03:45 Eos % (Auto) 0.4 % (0.6-7.6) L 12/24/18 03:45 Baso % (Auto) 0.2 % (0.3-1.7) L 12/24/18 03:45 Nucleat RBC Rel Count 0.0 % (0.0-0.2) 12/24/18 03:45 Absolute Neuts (auto) 6.93 10^3/uL (1.70-6.50) H 12/24/18 03:45 Absolute Lymphs (auto) 0.53 10^3/uL (1.00-3.00) L 12/24/18 03:45 Absolute Monos (auto) 0.60 10^3/uL (0.30-0.80) 12/24/18 03:45 Absolute Eos (auto) 0.03 10^3/uL (0.03-0.40) 12/24/18 03:45 Absolute Basos (auto) 0.02 10^3/uL (0.02-0.10) 12/24/18 03:45 Absolute Nucleated RBC 0.00 10^3/uL (0-0.01) 12/24/18 03:45 Immature Gran % 0.5 % (0.0-1.1) 12/24/18 03:45 Immature Gran # 0.04 10^3/uL (0.00-0.10) 12/24/18 03:45 RBC/WBC/PLT Morphology TNP 12/24/18 03:45 Platelet Estimate TNP 12/24/18 03:45 PT 26.0 SEC (12.0-15.0) H 12/24/18 03:45 INR 2.53 (0.83-1.16) H 12/24/18 03:45 APTT 40.2 SEC (23.0-38.0) H 12/23/18 13:05 VBG Lactic Acid 1.4 mmol/L (0.7-2.1) 12/23/18 14:56 Sodium 134 mEq/L (135-145) L 12/24/18 03:45 Potassium 4.5 mEq/L (3.5-5.2) 12/24/18 03:45 Chloride 101 mEq/L (97-110) 12/24/18 03:45 Carbon Dioxide 21 mEq/l (22-31) L 12/24/18 03:45 Anion Gap 12 mEq/L (6-14) 12/24/18 03:45 BUN 26 mg/dL (7-23) H 12/24/18 03:45 Creatinine 1.0 mg/dL (0.7-1.3) 12/24/18 03:45 Estimated GFR > 60 12/24/18 03:45 Glucose 108 mg/dL (70-100) H 12/24/18 03:45 Hemoglobin A1c 7.1 % (4.0-6.0) H 12/24/18 03:45 Estim Average Glucose 157 mg/dL (68-126) H 12/24/18 03:45 Calcium 8.5 mg/dL (8.5-10.4) 12/24/18 03:45 Magnesium 2.4 mg/dL (1.6-2.3) H 12/24/18 03:45 Total Bilirubin 1.3 mg/dL (0.1-1.4) 12/24/18 03:45 Conjugated Bilirubin 0.4 mg/dL (0.0-0.5) 12/24/18 03:45 Unconjugated Bilirubin 0.9 mg/dL (0.0-1.1) 12/24/18 03:45 AST 86 IU/L (17-59) H 12/24/18 03:45 ALT 84 IU/L (21-72) H 12/24/18 03:45 Alkaline Phosphatase 91 IU/L (38-126) 12/24/18 03:45 POC Troponin I 0.62 ng/mL (0.00-0.08) H 12/23/18 15:17 Troponin I 0.086 ng/mL (0.000-0.034) H 12/24/18 03:45 NT-Pro-B Natriuret Pep 65009 pg/mL (0-450) H 12/23/18 13:05 Total Protein 5.8 g/dL (6.3-8.2) L 12/24/18 03:45 Albumin 3.0 g/dL (3.5-5.0) L 12/24/18 03:45 Procalcitonin 0.22 ng/mL (0.02-0.10) H 12/24/18 03:45 TSH 2.190 uIU/mL (0.465-4.680) 12/24/18 03:45 Urine Color YELLOW 12/23/18 21:40 Urine Appearance HAZY 12/23/18 21:40 Urine pH 6.0 (5.0-7.5) 12/23/18 21:40 Ur Specific Albright 1.012 (1.002-1.030) 12/23/18 21:40 Urine Protein NEGATIVE (NEGATIVE) 12/23/18 21:40 Urine Ketones NEGATIVE (NEGATIVE) 12/23/18 21:40 Urine Blood 3+ (NEGATIVE) H 12/23/18 21:40 Urine Nitrate NEGATIVE (NEGATIVE) 12/23/18 21:40 Urine Bilirubin NEGATIVE (NEGATIVE) 12/23/18 21:40 Urine Urobilinogen NEGATIVE EU (0.2-1.0) 12/23/18 21:40 Ur Leukocyte Esterase NEGATIVE (NEGATIVE) 12/23/18 21:40 Urine RBC 50-182 /hpf (0-3) H 12/23/18 21:40 Urine WBC 10-15 /hpf (0-3) H 12/23/18 21:40 Ur Epithelial Cells TRACE /lpf (NONE-1+) 12/23/18 21:40 Urine Bacteria 1+ /hpf (NONE SEEN) H 12/23/18 21:40 Hyaline Casts 5-15 /lpf (0-1) 12/23/18 21:40 Urine Mucus TRACE /lpf (NONE-1+) 12/23/18 21:40 Ur Culture Indicated? INDICATED (NI) H 12/23/18 21:40 Urine Glucose NEGATIVE (NEGATIVE) 12/23/18 21:40 Visualized and Interpreted Chest x-ray results: Yes Chest X-ray Interpretation: other (RLL pneumonia with pleural effusion) Visualized and Interpreted imaging results: Yes Interpretation: CT of chest with moderate R pleural effusion, small L pleural effusion, cardiomegaly was noted. EKG additional interpertation: Atrial fibrillation with RVR (138 bpm) Telemetry: Atrial fibrillation with controlled ventricular response Echocardiogram: LVEF was about 20%, mild LVH, patient was in atrial fibrillation mild to mod RV dilation with severe systolic dysfunction mild biatrial dilation mechanical MVR with mean gradient of 4 mm Hg mod AI mild TR no pericardial effusion A/P Assessment: Patient is an 83 y/o male with mechanical MVR (mechanical, 2017), HTN, GERD, KARELY , chronic diastolic dysfunction (with an acute component at present), DM, atrial fibrillation (chronic s/p CM4 with MVR surgery), and CAD, with enterococci bacteremia with fevers (over a several week period) with progressive and limiting dyspnea. CT of chest, abdomen, and pelvis, without gross pathology noted (no masses). Surface echo with drop in systolic function from 30% in 2017 to about 15-20% today. No obvious vegetation to mechanical valve (or morongo valves), but elevated concerns with history. ID consult rendered, and antibiotic treatment has started. Atrial fibrillation with RVR has been slowed (which will assist with diastolic heart failure). Plan: (1) IV antibiotics to continue (2) Maintain therapy on coumadin with mechanical MVR and atrial fibrillation (3) Statins for HLP should continue as at present (4) PPI therapy for GERD (5) ASA for CAD history (6) Metoprolol for HTN and some degree of rate control assistance - consider resumption of diltiazem for HTN control assistance as well as some rate control with atrial fibrillation (7) NPO after midnight for ISABEL in morning - risks and benefits of this procedure were discussed today Further recommendations after this diagnostic testing has been completed.
[2018-12-24] MEDS ORDERED: FUROSEMIDE 100 MG/10 ML VIAL IVP SCH (15:00)
[2018-12-24] MEDS: WARFARIN SODIUM 7.5 MG TAB PO SCH (15:30)
--- NOTE | 2018-12-24 16:40 | CPEKG ---
Test Reason : OPEN Blood Pressure : / mmHG Vent. Rate : 117 BPM Atrial Rate : 114 BPM P-R Int : 065 ms QRS Dur : 107 ms QT Int : 380 ms P-R-T Axes : 000 138 006 degrees QTc Int : 531 ms Atrial flutter Left posterior fascicular block Low voltage, extremity leads Prolonged QT interval Confirmed by Jamel Rico ([id number]) on 12/24/2018 4:39:45 PM Referred By: Masood Peng Confirmed By:Jamel Rico
[2018-12-24] MEDS: METOPROLOL TARTRATE 100 MG TAB PO SCH (20:06)
[2018-12-24] MEDS: ATORVASTATIN CALCIUM 20 MG TAB PO SCH (20:07)
[2018-12-25] MEDS: AMPICILLIN SODIUM 2 GM in NS 100 ML IV SCH ×7 (00:02→23:02)
[2018-12-25 06:47] LABS: PLATELET COUNT 270 10^3/uL (150-400)
[2018-12-25 06:52] LABS: INR 2.87 (0.83-1.16); PROTIME(PATIENT) 28.6 SEC (12.0-15.0)
--- NOTE | 2018-12-25 08:45 | HOSPPROG ---
Hospitalist Progress Note Assessment/Plan: AHRF 2/2 acute HF - h/o mechanical MVR. B/L pleural effusions, elevated BNP, JVD on exam. O2 needs up to 4L from 1L yest. Wt also up 1.5 kg. -Increase Lasix to 80 IV BID -one time dose of metolazone 2.5 mg today -cont to monitor I&O's, daily wts -echo showed EF down to 10-15% which is significant drop from prior of 55% in 2017 -cardiology following Sepsis 2/2 enterococcal bacteremia - (HR, RR) Urinary source likely. Concern for endocarditis with mechanical valve. CT yest showed non-obstructing 1.5 cm stone at left UPF, no hydro. UCx pending. -cont Ampicillin plus Ceftriaxone for synergy, discussed with ID -ISABEL this am to further evaluate MV -F/U UCx -Rpt BCx's this am pending -ID following, appreciate assistance Mechanical valve on chronic anticoagulation - INR therapeutic -pharmacy dosing coumadin A fib in RVR - HR 140's this am, needs am Metoprolol, which was increased to 100 mg bid yest -stopped dilt with low EF -cont metoprolol to 100 mg bid -will load IV digoxin today as HR persisting 140's into the afternoon Elevated troponin - no chest pain, trending down, suspect strain 2/2 acute HF Diabetes - pt not on oral hypoglycemics -check a1c -defer SSI for now since bg's 100's Nephrolithiasis - 1.5 cm L UPJ stone, non-obstructing, no hydro -will need intervention for this at some point, but defer until more stable Full code Dispo - cont inpt, high risk for decompensation with suspicion for endocarditis , acute HF and sepsis 30 min crit care Subjective: Pt feels ok. Denies orthopnea. He is coughing a bit more today, but denies SOB. No CP. Does not feel palpitations with HR 140's. No fevers/ chills. No h/o abdominal pain, N/V. Did have kidney stone in past which was painful. Objective: Vital Signs Temp Pulse Resp BP Pulse Ox 36.6 C 144 H 23 H 127/87 H 92 12/25/18 07:51 12/25/18 07:51 12/25/18 07:51 12/25/18 07:51 12/25/18 07:51 Microbiology 12/23/18 15:10 Blood Panel (PCR) - Final Blood Enterococcus Species Laboratory Results 12/25/18 05:58 12/25/18 05:58 12/24/18 12/25/18 12/26/18 05:59 05:59 05:59 Intake Total 725 1350 Output Total 700 1230 100 Balance 25 120 -100 PT 28.6 SEC (12.0-15.0) H 12/25/18 05:58 INR 2.87 (0.83-1.16) H 12/25/18 05:58 - Physical Exam Constitutional: no apparent distress Eyes: PERRL Ears, Nose, Mouth, Throat: moist mucous membranes Cardiovascular: irregularly irregular, tachycardia Respiratory: no respiratory distress, clear to auscultation Gastrointestinal: normoactive bowel sounds, soft, non-tender abdomen Skin: warm Musculoskeletal: full muscle strength Neurologic: AAOx3 Psychiatric: interacting appropriately ICD10 Worksheet Patient Problems: Problems Problem Status Onset Atrial fibrillation Acute Elevated troponin Acute Pneumonia Acute Acute blood loss anemia Acute S/P Maze operation for atrial fibrillation Acute ~01/08/17 S/P mitral valve replacement with metallic valve Acute ~01/08/17 S/P tricuspid valve repair Acute ~01/08/17 Aortic valve insufficiency Chronic Chronic anticoagulation Chronic Longstanding persistent atrial fibrillation Chronic Mitral stenosis, supravalvar mitral ring Chronic Tricuspid regurgitation Chronic
[2018-12-25] MEDS: METOPROLOL TARTRATE 100 MG TAB PO SCH ×2 (08:46→19:34)
[2018-12-25] MEDS: ASPIRIN 81 MG CHEWABLE TAB PO SCH (08:46)
[2018-12-25] MEDS: FUROSEMIDE 100 MG/10 ML VIAL IVP SCH ×2 (08:46→15:16)
[2018-12-25] MEDS ORDERED: METOLAZONE 2.5 MG TAB PO ONE (08:57)
[2018-12-25] MEDS ORDERED: NS 1,000 ML IV ONE (09:06)
--- NOTE | 2018-12-25 11:33 | PDCARPN ---
Cardiology Progress Note Chief Complaint: Patient sitting up in chair this morning. He feels that he is going better. Assessment/Plan: Assessment: 12-25-18 Patient feeling well, but continues to note elevated heart rates with atrial fibrillation. No chest pains or pressure. Dyspnea with limited activity is also noted, and more pronounced than what he would call baseline. Family was present with the patient this morning, and were in agreement with ISABEL for better assessment of the valve morphologies (mechanical mitral, but also the tricuspid (annuloplasty) and aortic). 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 ER yesterday with progressive dyspnea and revisitation of fevers. About three weeks ago, the patient had noted pyrexia without cause. The symptoms seem to have resolved to some degree - there had been no fevers of late - until about three days ago. No chest pains or pressure. No PND or orthopnea. Dyspnea with very minimal activity was being appreciated, and given the acute, progressive nature of the dyspnea, ER evaluation was sought. Recent outpatient visit (12-09-18) with Dr. Gabe Ward of [facility] for a six month follow up. At that time, fevers were mentioned, but resolution had been noted. No issues with abnormal bleeding or bruising (with ongoing coumadin therapy for the MVR), less microscopic hematuria appreciated by PCP (Dr. Antoni Aleman). Echocardiography from 2015 (March 14) with LVEF of 60-65%, echo from 2017 with LVEF of about 30% (December 21). Today's echo with ejection fraction of 15-20%. BNP was elevated to >[address]265 with (+) blood cultures (enterococcal), and ID consultation. No nausea or emesis has been noted. No diarrhea. Diaphoresis has been appreciated most recently. Fevers, once again, were noted 2-3 weeks ago, resolved, but then returned over the past 36-48 hours. Plan: (1) Ongoing antibiotics as per ID (2) Patient is scheduled to have ISABEL today for better visualization of valve morphology (3) Would continue therapy on Warfarin for history of both MVR (mechanical) and atrial fibrillation (4) Lopressor should continue for HTN control, as well as some degree of heart rate control (5) Lasix should be continued as at present (6) Lipitor for HLP to continue with annual assessment of cholesterol and LFTs (7) Further recommendations after ISABEL has been completed. Subjective: No active cardiovascular complaints Objective: Vital Signs (8 Hrs) Temp Pulse Resp BP Pulse Ox 12/25/18 07:51 36.6 C 144 H 23 H 127/87 H 92 12/25/18 04:00 122 H 22 H 105/78 92 Intake/Output (24 Hrs) 12/24/18 12/25/18 12/26/18 05:59 05:59 05:59 Intake Total 725 1350 Output Total 700 1230 700 Balance 25 120 -700 Intake: Oral (ml) 470 510 IV Intake (ml) 255 530 IV Infused (ml) 310 Ampicillin Sodium 2 gm In 210 Ns 100 ml @ 200 mls/hr IV Q4H RICKY Rx#:[id number] cefTRIAXone 1 GM/DEXTROSE 100 50 ml @ 100 mls/hr IV DAILY RICKY Rx#:[id number] Output: Urine (ml) 700 1230 700 Bedside Commode 600 Toilet 1050 100 Urinal 700 180 Other: Weight 76.5 kg 78.1 kg Number of Voids Bedside Commode 1 Urinal 1 Number of Stools Toilet 0 Post Void Residual Scan Volume (ml) Toilet 210 Urinal 136 Result Diagrams: 12/25/18 05:58 12/25/18 05:58 Cardiac Labs: Cardiac Lab Results (72 Hrs) 12/24/18 03:45 Troponin I 0.086 H Telemetry: Patient was doing well today, and feeling somewhat better than yesterday - Physical Exam Constitutional: WDWN, healthy appearing, no apparent distress Eyes: PERRL, EOMI Ears, Nose, Mouth, Throat: moist mucous membranes Cardiovascular: systolic murmur (and click, consisent with mechanical valve), irregularly irregular (tachycardia), pulses symmetric bilat, No jugular vein distention Peripheral Pulses: 2+: dorsalis-pedis (R), dorsalis-pedis (L) Respiratory: clear to auscultate bilat, no crackles Gastrointestinal: normoactive bowel sounds Skin: no rashes, no edema Musculoskeletal: no muscular tenderness Neurologic: AAOx3, CN II-XII grossly intact Psychiatric: cooperative, interactive, following commands ICD10 Worksheet Patient Problems: Problems Problem Status Onset Atrial fibrillation Acute Elevated troponin Acute Pneumonia Acute Acute blood loss anemia Acute S/P Maze operation for atrial fibrillation Acute ~01/08/17 S/P mitral valve replacement with metallic valve Acute ~01/08/17 S/P tricuspid valve repair Acute ~01/08/17 Aortic valve insufficiency Chronic Chronic anticoagulation Chronic Longstanding persistent atrial fibrillation Chronic Mitral stenosis, supravalvar mitral ring Chronic Tricuspid regurgitation Chronic
--- NOTE | 2018-12-25 11:50 | PDANEPAE ---
ANE History of Present Illness moris ANE Past Medical History - Cardiovascular History Hx Hypertension: Yes Hx Arrhythmias: Yes Hx Chest Pain: Yes Hx Coronary Artery / Peripheral Vascular Disease: Yes Hx CHF / Valvular Disease: Yes Hx Palpitations: Yes Cardiovascular History Comment: htn. chf. afib with cardioversion x2. aortic valve regurgitation. mitral stenosis. tricupsid regurgitation. lower extremity edema. syncope. hx of chest pains and palpitations - Pulmonary History Hx COPD: Yes Hx Asthma/Reactive Airway Disease: No Hx Recent Upper Respiratory Infection: No Hx Oxygen in Use at Home: No Hx Sleep Apnea: Yes Pulmonary History Comment: gaye positive uses cpap- instructed pt to bring to hospital - Neurologic History Hx Cerebrovascular Accident: No Hx Seizures: No Hx Dementia: No - Endocrine History Hx Diabetes: No Hypothyroid: No Hyperthyroid: No Obesity: no Endocrine History Comment: parathyroid tumor removal 2007 - Renal History Hx Renal Disorders: Yes Renal History Comment: hx of kidney stones - Liver History Hx Hepatic Disorders: No - Neurological & Psychiatric Hx Hx Neurological and Psychiatric Disorders: No - Cancer History Hx Cancer: No - Congenital Disorder History Hx Congenital Disorders: No - GI History GERD: mild Hx Gastrointestinal Disorders: Yes Gastrointestinal History Comment: reflux - Other Health History Other Health History: wears glasses and bilateral hearing aides - Chronic Pain History Chronic Pain: No - Surgical History Prior Surgeries: labor conciliator 09/01/16 and 01/25/15. appy. cataractts. kidney stone extraction. mvr 2000. parathyroid tumor removal 2006 ANE Review of Systems Review of Systems: - Exercise capacity Exercise capacity: <4 METS ANE Patient History - Allergies Allergies/Adverse Reactions: No Known Allergies Allergy (Verified 12/07/16 11:29) - Home Medications Home Medications: Atorvastatin Calcium [Lipitor 20 mg (*)] 20 mg PO HS 12/27/16 [Last Taken ] Herbals/Supplements -Info Only 1 ea PO DAILY 12/27/16 [Last Taken Unknown] Multivitamins [Multivitamin (*)] 1 each PO DAILY 12/27/16 [Last Taken 12/23/18] Metoprolol Tartrate [Lopressor 50 mg (*)] 50 mg PO BID 12/23/18 [Last Taken 02/05] Psyllium Husk/Aspartame [Metamucil Fiber Singles Packet] 3.4 gm PO DAILY@12 02/05 [Last Taken Unknown] Warfarin Sodium [Coumadin 5MG (*)] 5 mg PO MOFR 12/23/18 [Last Taken 12/23/18] Warfarin Sodium [Coumadin 5MG (*)] 7.5 mg PO SUTUWETHSA 12/23/18 [Last Taken 01/05] - NPO status NPO Status: no food or drink >8 hours - Smoking Hx Smoking Status: Former smoker - Alcohol Use Alcohol Use: None - Family Anes Hx Family Hx Anesthesia Complications: none ANE Labs/Vital Signs - Labs Result Diagrams: 12/25/18 05:58 12/25/18 05:58 - Vital Signs Blood Pressure: 127/87 Heart Rate: 144 Respiratory Rate: 23 O2 Sat (%): 92 Height: 175.26 cm Weight: 78.1 kg ANE Physical Exam - Airway Mallampati Score: Class 2 Mouth exam: normal dental/mouth exam - Pulmonary Pulmonary: no respiratory distress - Cardiovascular Cardiovascular: irregularly irregular - ASA Status ASA Status: III ANE Anesthesia Plan Anesthesia Plan: MAC
[2018-12-25] MEDS ORDERED: KETAMINE 200 MG/20 ML VIAL ONE (13:02)
--- NOTE | 2018-12-25 13:02 | PCMIDPN ---
Assessment/Plan: Assessment/Plan: * Enterococcal bacteremia with underlying prosthetic mitral valve and prior tricuspid valve annuloplasty: Further evaluation for endocarditis planned with ISABEL today. CT yesterday revealed nonobstructing 1.5 cm stone in left UPJ which may be etiology for bacteremia. Urine culture also showing growth of Enterococcus. Await susceptibility profile on Enterococcus. Await ISABEL with plans to continue both ampicillin and ceftriaxone pending findings; if no vegetation noted, would be inclined to discontinue ceftriaxone and treat with ampicillin alone. Repeat blood cultures are pending to assess for clearing of bacteremia. Ultimately stone will need to be addressed as this would serve as potential nidus of recurrent infection if not removed. Time spent, greater than 35 min, of which greater than half was spent in education/counseling/coordination of care related enterococcal bacteremia as outlined above. Participated in ICU rounds today. 12/25/18 12:59 Subjective: Patient feels significantly improved with less dyspnea. Objective: Vital Signs Temp Pulse Resp BP Pulse Ox 36.6 C 144 H 23 H 127/87 H 92 12/25/18 07:51 12/25/18 11:50 12/25/18 11:50 12/25/18 11:50 12/25/18 11:50 Microbiology 12/23/18 15:10 Blood Panel (PCR) - Final Blood Enterococcus Species Laboratory Results 12/25/18 05:58 12/25/18 05:58 12/24/18 12/25/18 12/26/18 05:59 05:59 05:59 Intake Total 725 1350 Output Total 700 1230 700 Balance 25 120 -700 Ampicillin # 2 Ceftriaxone # 2 Blood cultures 12/23/2018 2/2 Enterococcus Blood cultures 12/25/2018 pending Urine culture greater than 100,[address] pelvis showing 1.5 cm left UPJ stone which is nonobstructing - Physical Exam General Appearance: alert, no apparent distress EENT: No scleral icterus, No conjunctival petechiae Respiratory: other (Improved air movement bilaterally), No respiratory distress Cardiac/Chest: irregularly irregular Extremities: No inflammation Abdomen: non-tender, No distended Back: No CVA tenderness Skin: No embolic lesions ICD10 Worksheet Patient Problems: Problems Problem Status Onset Atrial fibrillation Acute Elevated troponin Acute Pneumonia Acute Acute blood loss anemia Acute S/P Maze operation for atrial fibrillation Acute ~01/08/17 S/P mitral valve replacement with metallic valve Acute ~01/08/17 S/P tricuspid valve repair Acute ~01/08/17 Aortic valve insufficiency Chronic Chronic anticoagulation Chronic Longstanding persistent atrial fibrillation Chronic Mitral stenosis, supravalvar mitral ring Chronic Tricuspid regurgitation Chronic
[2018-12-25] MEDS ORDERED: PROPOFOL/EMULSION 500 MG/50 ML BOTTLE IV ONE ×2 (13:03)
--- NOTE | 2018-12-25 13:46 | POSTANESTH ---
Post Anesthetic Evaluation Cardiovascular Status: Normal, Stable, Similar to Pre-Op Cond Respiratory Status: Normal, Stable, Similar to Pre-op Cond. Level of Consciousness/Mental Status: Can Participate in Eval, Mildly Sleepy, Arousable Pain Control: Adequate, Prn Tx Ordered Nausea/Vomiting Control: Adequate, Prn Tx Ordered Complications Possibly Related to Anesthesia: None Noted
[2018-12-25] MEDS: WARFARIN SODIUM 7.5 MG TAB PO SCH (15:16)
[2018-12-25] MEDS ORDERED: DIGOXIN 500 MCG/2 ML AMP IVP ONE (15:35)
--- NOTE | 2018-12-25 17:43 | ECHO ---
[email or web address] [id number] Main: [phone] Echocardiography Examination Transesophageal Name: GISELA WILSON MR#: [id number] Study Date: 12/25/2018 Study Time: 12:55 PM Date of : 1935 Age: 83 year(s) Height: 175.3 cm (69 in.) Weight: 77.57 kg (171 lb.) BSA: 1.93 m2 Gender: Male Examination: ISABEL Contrast: Image Quality: Adequate Rhythm: Heart Rate: BP: 127 mmHg/89 mmHg Indication: Eval valves Procedure Staff Referring Physician: Parts Assembler: Ignacia Urrutia [facility] Reading Physician: Alex Macario MD Requesting Provider: Ordering Physician: Joyce Lorenzo Indication: Eval valves (1) Left ventriuclar systolic ejection fraction was severely reduced (15-20%) with global hypokinesis noted (2) Spontaneous contrast was noted to both atria (3) Mechanical mitral valve prosthesis without appreciable regurgitation noted - no vegetation was present to this valve (4) Grossly normal tricuspid aortic valve with mild sclerosis, but no stenosis. No vegetation was noted (5) Mild TR through annuloplasty ring. No vegetation was noted (6) Mild atheroma to the descending aorta Acute complication: None Findings There is a MVR #[address] in [address] No obvious vegetations seen.. Left Ventricle: EF range is estimated at 15 % - 20 %. Left Atrium: Spontaneous contrast in the left atrium. Mitral Valve: St. Khai Mechanical mitral valve well seated. 2 normal jets of mitral regurgitation through the mechanical MV.. Aortic Valve: Aortic leaflets exhibit mild calcification. The aortic valve is trileaflet. Tricuspid Valve: Mild tricuspid regurgitation. There is tricuspid ring calcification. Pulmonic Valve: Pulmonic leaflets are structurally normal. Patient: GISELA WILSON Study Date: 12/25/2018 Page 1 of 2 12:55 PM Aorta: Mild atheroma noted in the descending aorta.. Exam Details Procedure Ordered: ISABEL Procedure Status: Routine study Image Quality: Adequate Consent: Risks, alternatives of procedure explained to patient, informed consent obtained Probe Insertion: Attending audience development manager Facility Location: Cardiac Echo 1 (No Signature Object) Patient: GISELA WILSON Study Date: 12/25/2018 Page 2 of 2 12:55 PM [id number]
--- NOTE | 2018-12-25 17:46 | PDCARTEE ---
CAR ISABEL CAR ISABEL: PROCEDURE: ISABEL for assessment of vegetation to prosthetic mitral valve INDICATIONS: bacteremia DETAILS: After consent was signed and placed in chart, the patient was placed on the left lateral position to facilitate probe placement. Anesthesia with induction of sedation. ISABEL probe was placed without difficulty and standard views were obtained. Severe reduction in LVEF was noted (15-20%) Smoke was noted to the atrial chambers Mechanical mitral valve without evidence of vegetation Mild aortic sclerosis, but no obvious vegetation was noted Grossly normal tricuspid valve (annuloplasty ring) without vegetation appreciated No complications Patient was recovered in the CVC and sent back to the floor Discussion with patient and family at the conclusion of the procedure about the lack of vegetations, and possible etiology for the suppressed heart function given ongoing tachycardia (heart rates of 120 bpm with atrial fibrillation).
[2018-12-25] MEDS: ATORVASTATIN CALCIUM 20 MG TAB PO SCH (19:34)
[2018-12-25] MEDS: DIGOXIN 500 MCG/2 ML AMP IVP SCH (21:20)
[2018-12-26] MEDS: DIGOXIN 500 MCG/2 ML AMP IVP SCH (03:37)
[2018-12-26] MEDS: AMPICILLIN SODIUM 2 GM in NS 100 ML IV SCH ×5 (03:37→21:05)
[2018-12-26 05:57] LABS: PLATELET COUNT 240 10^3/uL (150-400)
[2018-12-26 06:18] LABS: INR 4.2 (0.83-1.16); PROTIME(PATIENT) 38.3 SEC (12.0-15.0)
[2018-12-26] MEDS ORDERED: PROTOCOL POTASSIUM 1 DOSE MISC PRN (06:40)
--- NOTE | 2018-12-26 08:29 | HOSPPROG ---
Hospitalist Progress Note Assessment/Plan: AHRF 2/2 acute HF - h/o mechanical MVR. B/L pleural effusions, elevated BNP, JVD on exam. O2 needs down from 4 LPM to 2 LPM. Wt near his dry weight, which is about 77 kg. Diuresed nicely with metolazone dose yest. -Cont IV Lasix, can likely transition back to oral diuretics tomorrow -cont to monitor I&O's, daily wts -echo showed EF down to 10-15% which is significant drop from prior of 55% in 2017 -cardiology following Sepsis 2/2 enterococcal bacteremia - (HR, RR) Source is urinary. CT yest showed non-obstructing 1.5 cm stone at left UPJ, no hydro. UCx also with enterococcus. ISABEL neg for vegetation -cont Ampicillin, ID following, appreciate assistance -Rpt BCx's NGTD Mechanical valve on chronic anticoagulation - INR therapeutic. No e/o vegetation on ISABEL yest. -pharmacy dosing coumadin -will need to hold coumadin and bridge prior to urologic intervention, see below A fib in RVR - HR better controlled with addition of dig -stopped dilt with low EF -cont metoprolol to 100 mg bid -s/p IV dig load, cont po dig, check level in am Nephrolithiasis - 1.5 cm L UPJ stone, non-obstructing, no hydro. This is likely cause of sepsis. -will need intervention for this due to risk of recurrent infection, defer until CV status more stable -needs cardiac clearance for surgery given acute HF and rapid A fib, likely needs another day or two to stabilize Elevated troponin - no chest pain, trending down, suspect strain 2/2 acute HF Diabetes - pt not on oral hypoglycemics, a1c 7.1 -defer SSI for now since bg's 100's Full code Dispo - cont inpt, high risk for decompensation with suspicion for endocarditis , acute HF and sepsis Subjective: Pt feels much better this am. Denies CP, SOB or palpitations. No fevers/chills. No abdominal pain, N/V. Up in chair eating breakfast. Objective: Vital Signs Temp Pulse Resp BP Pulse Ox 36.5 C 113 H 20 115/69 93 12/25/18 23:00 12/26/18 04:00 12/26/18 04:00 12/26/18 04:00 12/26/18 04:00 Microbiology 12/23/18 15:10 Blood Panel (PCR) - Final Blood Enterococcus Species Laboratory Results 12/26/18 05:20 12/26/18 05:20 12/25/18 12/26/18 12/27/18 05:59 05:59 05:59 Intake Total 1350 2036 Output Total 1230 4475 200 Balance 120 -2439 -200 PT 38.3 SEC (12.0-15.0) H 12/26/18 05:20 INR 4.20 (0.83-1.16) H 12/26/18 05:20 - Physical Exam Constitutional: no apparent distress Eyes: PERRL Ears, Nose, Mouth, Throat: moist mucous membranes Cardiovascular: irregularly irregular, tachycardia Respiratory: no respiratory distress, other (just a few basilar crackles, much improved) Gastrointestinal: normoactive bowel sounds, soft, non-tender abdomen Skin: warm Musculoskeletal: full muscle strength Neurologic: AAOx3 Psychiatric: interacting appropriately ICD10 Worksheet Patient Problems: Problems Problem Status Onset Atrial fibrillation Acute Elevated troponin Acute Pneumonia Acute Acute blood loss anemia Acute S/P Maze operation for atrial fibrillation Acute ~01/08/17 S/P mitral valve replacement with metallic valve Acute ~01/08/17 S/P tricuspid valve repair Acute ~01/08/17 Aortic valve insufficiency Chronic Chronic anticoagulation Chronic Longstanding persistent atrial fibrillation Chronic Mitral stenosis, supravalvar mitral ring Chronic Tricuspid regurgitation Chronic
[2018-12-26] MEDS: FUROSEMIDE 100 MG/10 ML VIAL IVP SCH ×2 (09:27→15:13)
[2018-12-26] MEDS: METOPROLOL TARTRATE 100 MG TAB PO SCH ×2 (09:29→21:05)
[2018-12-26] MEDS: ASPIRIN 81 MG CHEWABLE TAB PO SCH (09:29)
[2018-12-26] MEDS ORDERED: POTASSIUM CL 10 MEQ TAB PO ONE ×2 (09:34→17:59)
[2018-12-26] MEDS ORDERED: DIGOXIN 50 MCG/ML UDSYR PO SCH (10:00)
--- NOTE | 2018-12-26 10:17 | PCMIDPN ---
Assessment/Plan: Assessment/Plan: * Enterococcal bacteremia with underlying prosthetic mitral valve and prior tricuspid valve annuloplasty: ISABEL shows no evidence of prosthetic valve vegetation or dysfunction. Suspect most likely enterococcal bacteremia associated with urinary etiology in the setting of nephrolithiasis. Will continue ampicillin 2 g IV q.4 hours with anticipated 2 week course of therapy. Have discontinued ceftriaxone given no need for synergy in the absence of endocarditis. Plan PICC line or midline catheter tomorrow if blood cultures repeat remain negative. Will need repeat echocardiogram in approximately 10-14 days to ensure no evolution of valvular abnormalities. Will consult Urology regarding nephrolithiasis as inpatient management may be preferred given recent issues with atrial fibrillation in heart failure with ability to optimize while inpatient. Will have Cardiology assist with bridging anticoagulation if stone removal felt to be feasible. Time spent, greater than 35 min, which greater than half was spent in education/ counseling coordination of care related to enterococcal bacteremia and plan of care. Subjective: Patient feels significantly improved. Shortness of breath markedly decreased. Objective: Vital Signs Temp Pulse Resp BP Pulse Ox 36.5 C 101 H 20 113/54 L 92 12/26/18 08:00 12/26/18 09:29 12/26/18 08:00 12/26/18 08:00 12/26/18 08:00 Microbiology 12/23/18 15:10 Blood Culture - Final Blood Enterococcus Faecalis Blood Panel (PCR) - Final Enterococcus Species Laboratory Results 12/26/18 05:20 12/26/18 05:20 12/25/18 12/26/18 12/27/18 05:59 05:59 05:59 Intake Total 1350 2036 Output Total 1230 4475 550 Balance 120 -2439 -550 Ampicillin # 3 ISABEL without evidence of mitral or tricuspid vegetation; no significant valvular dysfunction, EF 15-20% - Physical Exam General Appearance: alert, no apparent distress Respiratory: other (Decreased breath sounds at bases but markedly improved air movement) Cardiac/Chest: irregularly irregular Extremities: No inflammation Abdomen: non-tender, No distended Back: No CVA tenderness Skin: No embolic lesions ICD10 Worksheet Patient Problems: Problems Problem Status Onset Atrial fibrillation Acute Elevated troponin Acute Pneumonia Acute Acute blood loss anemia Acute S/P Maze operation for atrial fibrillation Acute ~01/08/17 S/P mitral valve replacement with metallic valve Acute ~01/08/17 S/P tricuspid valve repair Acute ~01/08/17 Aortic valve insufficiency Chronic Chronic anticoagulation Chronic Longstanding persistent atrial fibrillation Chronic Mitral stenosis, supravalvar mitral ring Chronic Tricuspid regurgitation Chronic
--- NOTE | 2018-12-26 14:41 | PDCARPN ---
Cardiology Progress Note Chief Complaint: Patient feeling well today. No active cardiovascular complaints Assessment/Plan: Assessment: 12-26-18 Patient doing well today. No voiced cardiovascular complaints. Atrial fibrillation continues to be noted, but at present, the rates are better controlled. At present, the theory is nephrolithiasis may be a nidus for the infection that has been appreciated with this admission. Patient is feeling better at this time, as compared to admission symptoms. ISABEL without vegetations appreciated to the mitral (or tricuspid valves). ID with ongoing management and treatment of noted infection. On one hand, cardiology would like to maintain anticoagulation for both atrial fibrillation and the mechanical MVR without interruption. Urology to be consulted to discuss options for treatment of the noted kidney stone (which is not associated with acute exacerbation - no pain, no obstruction). On the other hand, if the source of the potential infection is this insult, the sooner we address this issue, the better in that a repeat infection/admission could be prevented. If surgery is deemed necessary in the short term, patient will need to have bridging for warfarin/coumadin therapy given the multiple risks for CVA and thrombosis. 12-25-18 Patient feeling well, but continues to note elevated heart rates with atrial fibrillation. No chest pains or pressure. Dyspnea with limited activity is also noted, and more pronounced than what he would call baseline. Family was present with the patient this morning, and were in agreement with ISABEL for better assessment of the valve morphologies (mechanical mitral, but also the tricuspid (annuloplasty) and aortic). 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 About three weeks ago, the patient had noted pyrexia without cause. The symptoms seem to have resolved to some degree - there had been no fevers of late - until about three days ago. No chest pains or pressure. No PND or orthopnea. Dyspnea with very minimal activity was being appreciated, and given the acute, progressive nature of the dyspnea, ER evaluation was sought. Recent outpatient visit (12-09-18) with Dr. Gabe Ward of [facility] for a six month follow up. At that time, fevers were mentioned, but resolution had been noted. No issues with abnormal bleeding or bruising (with ongoing coumadin therapy for the MVR), less microscopic hematuria appreciated by PCP (Dr. Antoni Aleman). Echocardiography from 2016 (March 14) with LVEF of 60-65%, echo from 2017 with LVEF of about 30% (December 21). Today's echo with ejection fraction of 15-20%. BNP was elevated to >70281 with (+) blood cultures (enterococcal), and ID consultation. No nausea or emesis has been noted. No diarrhea. Diaphoresis has been appreciated most recently. Fevers, once again, were noted 2-3 weeks ago, resolved, but then returned over the past 36-48 hours. Plan: (1) Lopressor to continue for some degree of rate/rhythm control assistance (2) Lipitor for HLP to continue (with annual assessment of cholesterol) (3) Antibiotics to continue as at present (4) Will await report from urology on decision to intervene (how and to what extent) (5) Warfarin should continue as at present - there is no indication for DOAC/NOAC therapy given the mechanical MVR - if interruption is required, would likely recommend heparin, in patient, as bridge (rather than lovenox) given the patient comorbidities Subjective: Patient is doing well today. No active cardiovascular complaints Objective: Vital Signs (8 Hrs) Temp Pulse Resp BP Pulse Ox 12/26/18 11:50 78 21 H 115/58 L 96 12/26/18 09:29 101 H 12/26/18 08:00 36.5 C 115 H 20 113/54 L 92 Intake/Output (24 Hrs) 12/25/18 12/26/18 12/27/18 05:59 05:59 05:59 Intake Total 1350 2036 Output Total 1230 4475 1450 Balance 120 -2439 -1450 Intake: Oral (ml) 510 750 IV Intake (ml) 530 936 IV Infused (ml) 310 350 Ampicillin Sodium 2 gm In 210 300 Ns 100 ml @ 200 mls/hr IV Q4H [facility] Rx#:[id number] cefTRIAXone 1 GM/DEXTROSE 100 50 ml @ 100 mls/hr IV DAILY [facility] Rx#:[id number] cefTRIAXone 2 gm In Ns 50 50 ml @ 100 mls/hr IV Q12H [facility] Rx#:[id number] Output: Urine (ml) 1230 4475 1450 Bedside Commode 4375 1450 Toilet 1050 100 Urinal 180 Other: Weight 76.2 kg Number of Voids Bedside Commode 1 1 Urinal 1 Number of Stools Bedside Commode 0 Toilet 0 Post Void Residual Scan Volume (ml) Toilet 210 Urinal 136 Result Diagrams: 12/26/18 05:20 12/26/18 05:20 Cardiac Labs: Cardiac Lab Results (72 Hrs) 12/24/18 03:45 Troponin I 0.086 H Telemetry: atrial fibrillation with controlled ventricular response - Physical Exam Constitutional: WDWN, healthy appearing, no apparent distress Eyes: PERRL, EOMI Ears, Nose, Mouth, Throat: moist mucous membranes Cardiovascular: systolic murmur, irregularly irregular, pulses symmetric bilat, No jugular vein distention Peripheral Pulses: 2+: dorsalis-pedis (R), dorsalis-pedis (L) Respiratory: clear to auscultate bilat, no crackles Gastrointestinal: normoactive bowel sounds Skin: no rashes Musculoskeletal: no muscular tenderness Neurologic: AAOx3, CN II-XII grossly intact Psychiatric: cooperative, interactive, following commands ICD10 Worksheet Patient Problems: Problems Problem Status Onset Atrial fibrillation Acute Elevated troponin Acute Pneumonia Acute Acute blood loss anemia Acute S/P Maze operation for atrial fibrillation Acute ~01/08/17 S/P mitral valve replacement with metallic valve Acute ~01/08/17 S/P tricuspid valve repair Acute ~01/08/17 Aortic valve insufficiency Chronic Chronic anticoagulation Chronic Longstanding persistent atrial fibrillation Chronic Mitral stenosis, supravalvar mitral ring Chronic Tricuspid regurgitation Chronic
--- NOTE | 2018-12-26 16:23 | ASMTCMCOM ---
CM Note CM Note Notes: PT/OT are recommending home with no needs for the patient. Patient to d/c independently. CM available if d/c needs arise. Date Signed: 12/26/2018 04:22 PM Electronically Signed By:Natasha Grubbs LCSW
--- NOTE | 2018-12-26 17:06 | PDCONSULT ---
Lube Technician Note: reason for consultation - left renal stone, enterococcus infection 83 year old man with a complicated medical history including a prosthetic mitral valve and the chronic need for anti-coagulation. He has been found to have an enterococcus infection which fortunately does not appear to be affecting his heart valve. The source for the enterococcus is thought to be urinary in origin. Had a recent CT scan that shows a 1.5 x 0.7 cm stone at the Left UPJ, that does not appear to be causing any obstruction. There is no hydronephrosis on the films. He does give a history of a stone that was removed ureteroscopically 25 years ago. He is not sure of the type of stone. Has not had any other urological problems that he is aware of since that time. He does not have any flank pain, denies any dysuria. has no gross hematuria. Past med hx, social history, family history and review of systems reviewed in the chart. Exam well appearing pleasant gentleman sitting in a chair alert and oriented breathing comfortably abd-soft, non tender with no cva tenderness gu- nml phallus Impression Large left UPJ stone not causing obstruction Stone is a potential source for persistent or recurrent infection Will plan to proceed with cysto, left ureteroscopy with laser lithotripsy in the near future Would plan to do it early in the week next week depending on when his anti- coagulation can best be bridged for the procedure I am happy to add him on Mon//Sun- whenever anti-coagulation is ok and cleared from medical standpoint Thanks for the consultation Tino Catalan MD [facility]
[2018-12-26] MEDS: ATORVASTATIN CALCIUM 20 MG TAB PO SCH (21:05)
[2018-12-27] MEDS: AMPICILLIN SODIUM 2 GM in NS 100 ML IV SCH ×6 (00:49→19:56)
[2018-12-27 06:28] LABS: INR 4.02 (0.83-1.16)
[2018-12-27] MEDS: DIGOXIN 125 MCG TAB PO SCH (08:47)
[2018-12-27] MEDS: ASPIRIN 81 MG CHEWABLE TAB PO SCH (08:47)
[2018-12-27] MEDS: METOPROLOL TARTRATE 100 MG TAB PO SCH ×2 (08:47→19:56)
[2018-12-27] MEDS: FUROSEMIDE 100 MG/10 ML VIAL IVP SCH (08:48)
[2018-12-27] MEDS ORDERED: POTASSIUM CL 10 MEQ TAB PO ONE ×2 (08:56→19:51)
--- NOTE | 2018-12-27 12:03 | HOSPPROG ---
Hospitalist Progress Note Assessment/Plan: AHRF 2/2 acute HF - h/o mechanical MVR. B/L pleural effusions, elevated BNP, JVD on exam. O2 needs down from 4 LPM to 2 LPM. Wt near his dry weight, which is about 77 kg. Diuresed nicely with metolazone dose yest. -Stop IV Lasix. Transition to oral home Lasix dose today -cont to monitor I&O's, daily wts -echo showed EF down to 10-15% which is significant drop from prior of 55% in 2017 -cardiology following Sepsis 2/2 enterococcal bacteremia - (HR, RR) Source is urinary. CT yest showed non-obstructing 1.5 cm stone at left UPJ, no hydro. UCx also with enterococcus. ISABEL neg for vegetation -cont Ampicillin, ID following, appreciate assistance -Rpt BCx's NGTD Mechanical valve on chronic anticoagulation - elevated INR. No e/o vegetation on ISABEL yest. -pharmacy dosing coumadin, this is on hold for now. Will start Heparin soon -Plan for Heparin as bridge until Urological extraction on Sunday. D/W Cardiology A fib in RVR - HR better controlled with addition of dig -stopped dilt with low EF -cont metoprolol to 100 mg bid -s/p IV dig load, cont po dig Nephrolithiasis - 1.5 cm L UPJ stone, non-obstructing, no hydro. This is likely cause of sepsis. -will need intervention for this due to risk of recurrent infection Elevated troponin - no chest pain, trending down, suspect strain 2/2 acute HF Diabetes - pt not on oral hypoglycemics, a1c 7.1 -defer SSI for now since bg's 100's Constipation, start bowel regimen Full code Dispo - cont inpt, high risk for decompensation with suspicion for endocarditis , acute HF and sepsis. PCU status Subjective: feels better overall. no cp or sob. Objective: Vital Signs Temp Pulse Resp BP Pulse Ox 36.6 C 85 18 106/66 99 12/27/18 10:33 12/27/18 10:33 12/27/18 10:33 12/27/18 10:33 12/27/18 10:33 Microbiology 12/23/18 21:40 Urine Culture - Final Urine,Clean Catch Enterococcus Faecalis 12/23/18 14:56 Blood Culture - Final Blood Enterococcus Faecalis 12/23/18 15:10 Blood Culture - Final Blood Enterococcus Faecalis Blood Panel (PCR) - Final Enterococcus Species Laboratory Results 12/26/18 05:20 12/27/18 06:06 12/26/18 12/27/18 12/28/18 05:59 05:59 05:59 Intake Total 2035 1750 500 Output Total 4475 3950 1100 Balance -2439 -2200 -600 PT 37.0 SEC (12.0-15.0) H 12/27/18 06:06 INR 4.02 (0.83-1.16) H 12/27/18 06:06 - Physical Exam Constitutional: no apparent distress Eyes: PERRL, EOMI Ears, Nose, Mouth, Throat: moist mucous membranes, hearing normal Cardiovascular: regular rate and rhythym, No edema Respiratory: no respiratory distress, reduced air movement Gastrointestinal: normoactive bowel sounds, soft, non-tender abdomen Skin: warm Neurologic: AAOx3 Psychiatric: interacting appropriately, not anxious, not encephalopathic Lymph, Heme, Immunologic: No petechiae ICD10 Worksheet Patient Problems: Problems Problem Status Onset Atrial fibrillation Acute Elevated troponin Acute Pneumonia Acute Acute blood loss anemia Acute S/P Maze operation for atrial fibrillation Acute ~01/08/17 S/P mitral valve replacement with metallic valve Acute ~01/08/17 S/P tricuspid valve repair Acute ~01/08/17 Aortic valve insufficiency Chronic Chronic anticoagulation Chronic Longstanding persistent atrial fibrillation Chronic Mitral stenosis, supravalvar mitral ring Chronic Tricuspid regurgitation Chronic
[2018-12-27] MEDS ORDERED: LACTULOSE 20 GM/30 ML UDCUP PO PRN (12:05)
[2018-12-27] MEDS ORDERED: BISACODYL 10 MG SUPP PR PRN (12:05)
[2018-12-27] MEDS ORDERED: POLYETHYLENE GLYCOL 3350 17 GM PKT PO PRN (12:05)
[2018-12-27] MEDS ORDERED: ALTEPLASE 2 MG VIAL IVP PRN (12:09)
--- NOTE | 2018-12-27 12:34 | SOAPPROG ---
SOAP Progress Note Assessment/Plan: Assessment: Left UPJ stone Enterococcus UTI- resolving Plan: cysto, left ureteroscopy, laser lithotripsy early next week 12/27/18 12:33 Subjective: feels well without complaints Objective: Vital Signs Temp Pulse Resp BP Pulse Ox 36.6 C 85 18 106/66 99 12/27/18 10:33 12/27/18 10:33 12/27/18 10:33 12/27/18 10:33 12/27/18 10:33 Microbiology 12/23/18 21:40 Urine Culture - Final Urine,Clean Catch Enterococcus Faecalis 12/23/18 14:56 Blood Culture - Final Blood Enterococcus Faecalis 12/23/18 15:10 Blood Culture - Final Blood Enterococcus Faecalis Blood Panel (PCR) - Final Enterococcus Species Laboratory Results 12/26/18 05:20 12/27/18 06:06 12/26/18 12/27/18 12/28/18 05:59 05:59 05:59 Intake Total 2036 1750 500 Output Total 4476 3950 1100 Balance -2439 -2200 -600 PT 37.0 SEC (12.0-15.0) H 12/27/18 06:06 INR 4.02 (0.83-1.16) H 12/27/18 06:06 ICD10 Worksheet Patient Problems: Problems Problem Status Onset Atrial fibrillation Acute Elevated troponin Acute Pneumonia Acute Acute blood loss anemia Acute S/P Maze operation for atrial fibrillation Acute ~01/08/17 S/P mitral valve replacement with metallic valve Acute ~01/08/17 S/P tricuspid valve repair Acute ~01/08/17 Aortic valve insufficiency Chronic Chronic anticoagulation Chronic Longstanding persistent atrial fibrillation Chronic Mitral stenosis, supravalvar mitral ring Chronic Tricuspid regurgitation Chronic
--- NOTE | 2018-12-27 13:38 | PCMIDPN ---
Assessment/Plan: Assessment: 83-year-old man with Enterococcus faecalis bloodstream infection complicating nephrolithiasis in the setting a mechanical mitral valve replacement. No echocardiographic evidence for endocarditis. Plan will be 2 weeks ampicillin with further cardiac imaging after discharge. 1. Enterococcus faecalis bacteremia 2. Nephrolithiasis at left UPJ 3. Pyelonephritis secondary to Enterococcus faecalis source of 1. 4. History of mitral valve replacement with mechanical valve; no ISABEL evidence for endocarditis 5. History of aortic valve repair 6. Mild transaminase elevation Plan: 1. Place PICC line today 2. Continue ampicillin; expected stop date 5.22 if not complications arise 3. Reviewed in detail potential side effects of beta-lactam antibiotics to include: allergy, rash, nausea, antibiotic-associated diarrhea, Clostridioides difficile colitis. Brian Ruby MD Infectious Diseases 12/27/18 13:45 Subjective: No fever or chills in the past 24-hours. Tolerating oral diet with solids and liquids. No diarrhea, nausea, or other GI symptoms. No rash. Appetite improving. Improved since admission but not back to baseline health. Plan for kidney stone removal while remaining inpatient. Objective: Vital Signs Temp Pulse Resp BP Pulse Ox 36.6 C 85 18 106/66 99 12/27/18 10:33 12/27/18 10:33 12/27/18 10:33 12/27/18 10:33 12/27/18 10:33 Microbiology 12/23/18 21:40 Urine Culture - Final Urine,Clean Catch Enterococcus Faecalis 12/23/18 14:56 Blood Culture - Final Blood Enterococcus Faecalis 12/23/18 15:10 Blood Culture - Final Blood Enterococcus Faecalis Blood Panel (PCR) - Final Enterococcus Species Laboratory Results 12/26/18 05:20 12/27/18 06:06 12/26/18 12/27/18 12/28/18 05:59 05:59 05:59 Intake Total 2030 1750 500 Output Total 8274 2835 3556 Balance -6839 -5272 -159 Ongoing monitoring for antimicrobial toxicity with: CBC, BMP, interval historical information, and interval physical exam. Discussed treatment/diagnostic testing and testing results with admitting provider(s). Personally reviewed interval laboratory results. - Physical Exam General Appearance: no apparent distress, non-toxic EENT: No scleral icterus Respiratory: No respiratory distress, No accessory muscle use, No crackles, No wheezing Neck: full range of motion, supple Cardiac/Chest: tachycardia, diastolic murmur, systolic murmur, irregularly irregular, No bradycardia Skin: No erythema Neuro/Psych: alert, normal mood/affect, oriented x 3, No confused ICD10 Worksheet Patient Problems: Problems Problem Status Onset Atrial fibrillation Acute Elevated troponin Acute Pneumonia Acute Acute blood loss anemia Acute S/P Maze operation for atrial fibrillation Acute ~01/08/17 S/P mitral valve replacement with metallic valve Acute ~01/08/17 S/P tricuspid valve repair Acute ~01/08/17 Aortic valve insufficiency Chronic Chronic anticoagulation Chronic Longstanding persistent atrial fibrillation Chronic Mitral stenosis, supravalvar mitral ring Chronic Tricuspid regurgitation Chronic
--- NOTE | 2018-12-27 13:48 | ASMTCMCOM ---
CM Note CM Note Notes: Patient to have cystoscopy, ureteroscopy and laser lithotripsy next week. Palliative care consult today - referral sent to [facility] for outpatient services. Current Discharge plan: home with outpatient palliative care Date Signed: 12/27/2018 01:46 PM Electronically Signed By:Crystal Bernard RN
[2018-12-27] MEDS: FUROSEMIDE 80 MG TAB PO SCH (14:42)
--- NOTE | 2018-12-27 15:39 | PDCARPN ---
Cardiology Progress Note Chief Complaint: Patient feeling well today. No cardiovascular complaints Assessment/Plan: Assessment: 12-27-18 Patient feeling well today. Urology has seen patient and there are plans for surgery early next week to remove kidney stone, which may have contributed to the uroseptic picture that was noted. ID with ongoing direction on antibiotics , and length of therapy (given mechanical MVR and history). No complaints of chest pains or pressure. No PND or orthopnea. Ongoing atrial fibrillation with better rate control noted on digoxin and beta blockers. 12-26-18 Patient doing well today. No voiced cardiovascular complaints. Atrial fibrillation continues to be noted, but at present, the rates are better controlled. At present, the theory is nephrolithiasis may be a nidus for the infection that has been appreciated with this admission. Patient is feeling better at this time, as compared to admission symptoms. ISABEL without vegetations appreciated to the mitral (or tricuspid valves). ID with ongoing management and treatment of noted infection. On one hand, cardiology would like to maintain anticoagulation for both atrial fibrillation and the mechanical MVR without interruption. Urology to be consulted to discuss options for treatment of the noted kidney stone (which is not associated with acute exacerbation - no pain, no obstruction). On the other hand, if the source of the potential infection is this insult, the sooner we address this issue, the better in that a repeat infection/admission could be prevented. If surgery is deemed necessary in the short term, patient will need to have bridging for warfarin/coumadin therapy given the multiple risks for CVA and thrombosis. 12-25-18 Patient feeling well, but continues to note elevated heart rates with atrial fibrillation. No chest pains or pressure. Dyspnea with limited activity is also noted, and more pronounced than what he would call baseline. Family was present with the patient this morning, and were in agreement with ISABEL for better assessment of the valve morphologies (mechanical mitral, but also the tricuspid (annuloplasty) and aortic). 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 About three weeks ago, the patient had noted pyrexia without cause. The symptoms seem to have resolved to some degree - there had been no fevers of late - until about three days ago. No chest pains or pressure. No PND or orthopnea. Dyspnea with very minimal activity was being appreciated, and given the acute, progressive nature of the dyspnea, ER evaluation was sought. Recent outpatient visit (12-09-18) with Dr. Gabe Ward of [facility] for a six month follow up. At that time, fevers were mentioned, but resolution had been noted. No issues with abnormal bleeding or bruising (with ongoing coumadin therapy for the MVR), less microscopic hematuria appreciated by PCP (Dr. Antoni Aleman). Echocardiography from 2015 (March 14) with LVEF of 60-65%, echo from 2016 with LVEF of about 30% (December 21). Today's echo with ejection fraction of 15-20%. BNP was elevated to >96226 with (+) blood cultures (enterococcal), and ID consultation. No nausea or emesis has been noted. No diarrhea. Diaphoresis has been appreciated most recently. Fevers, once again, were noted 2-3 weeks ago, resolved, but then returned over the past 36-48 hours. Plan: (1) Digoxin for assistance with rate control - monitor INR with this therapy (2) Cessation of coumadin to allow for surgical procedure early next week - heparin bridge while patient is in house (3) Antibiotics to continue as at present - PICC line has been placed (4) Lipitor should continue for HLP, and maintain annual assessment of cholesterol and LFTs (5) Outpatient follow up with cardiology within 1 week of discharge - ID is requesting a follow up echo in 1-2 weeks to ensure no changes to the morphology of mechanical MVR Subjective: Patient is comfortable and relaxed today Reviewed/Discussed With: family Objective: Vital Signs (8 Hrs) Temp Pulse Resp BP Pulse Ox 12/27/18 10:33 36.6 C 85 18 106/66 99 12/27/18 08:47 114 H 12/27/18 07:55 36.4 C 96 23 H 123/63 H 95 Intake/Output (24 Hrs) 12/26/18 12/27/18 12/28/18 05:59 05:59 05:59 Intake Total 2036 1750 500 Output Total 4475 3950 1100 Balance -2439 -2200 -600 Intake: Oral (ml) 750 1100 500 IV Intake (ml) 936 350 IV Infused (ml) 350 300 Ampicillin Sodium 2 gm In 300 300 Ns 100 ml @ 200 mls/hr IV Q4H [facility] Rx#:[id number] cefTRIAXone 2 gm In Ns 50 50 ml @ 100 mls/hr IV Q12H [facility] Rx#:[id number] Output: Urine (ml) 4475 3950 1100 Bedside Commode 4375 3950 500 Toilet 100 600 Other: Weight 76.2 kg 73.1 kg Intake Quantity Yes Sufficient Number of Voids Bedside Commode 1 1 1 Toilet 2 Number of Stools Bedside Commode 0 Result Diagrams: 12/26/18 05:20 12/27/18 06:06 Telemetry: atrial fibrillation - Physical Exam Constitutional: WDWN, healthy appearing, no apparent distress Eyes: PERRL, EOMI Ears, Nose, Mouth, Throat: moist mucous membranes Cardiovascular: systolic murmur (with click consisent with mechanical valve), irregularly irregular, pulses symmetric bilat, No jugular vein distention Peripheral Pulses: 2+: dorsalis-pedis (R), dorsalis-pedis (L) Respiratory: clear to auscultate bilat, no crackles, no wheezes Gastrointestinal: normoactive bowel sounds Skin: no rashes, no edema Musculoskeletal: no muscular tenderness Neurologic: AAOx3, CN II-XII grossly intact Psychiatric: cooperative, interactive, following commands ICD10 Worksheet Patient Problems: Problems Problem Status Onset Atrial fibrillation Acute Elevated troponin Acute Pneumonia Acute Acute blood loss anemia Acute S/P Maze operation for atrial fibrillation Acute ~01/08/17 S/P mitral valve replacement with metallic valve Acute ~01/08/17 S/P tricuspid valve repair Acute ~01/08/17 Aortic valve insufficiency Chronic Chronic anticoagulation Chronic Longstanding persistent atrial fibrillation Chronic Mitral stenosis, supravalvar mitral ring Chronic Tricuspid regurgitation Chronic
[2018-12-27] MEDS ORDERED: WARFARIN SODIUM 5 MG TAB PO SCH (16:00)
[2018-12-27] MEDS: SENNOSIDES/DOCUSATE SODIUM TAB PO SCH (19:56)
[2018-12-27] MEDS: ATORVASTATIN CALCIUM 20 MG TAB PO SCH (19:56)
[2018-12-28] MEDS: AMPICILLIN SODIUM 2 GM in NS 100 ML IV SCH ×6 (01:43→20:56)
[2018-12-28 05:43] LABS: PLATELET COUNT 247 10^3/uL (150-400)
[2018-12-28 06:04] LABS: INR 2.71 (0.83-1.16); PROTIME(PATIENT) 27.4 SEC (12.0-15.0)
[2018-12-28] MEDS ORDERED: POTASSIUM CL 10 MEQ TAB PO ONE ×2 (07:38→21:31)
[2018-12-28] MEDS: FUROSEMIDE 80 MG TAB PO SCH ×2 (08:40→15:08)
[2018-12-28] MEDS: METOPROLOL TARTRATE 100 MG TAB PO SCH ×2 (08:41→20:55)
[2018-12-28] MEDS: ASPIRIN 81 MG CHEWABLE TAB PO SCH (08:41)
[2018-12-28] MEDS: SENNOSIDES/DOCUSATE SODIUM TAB PO SCH ×2 (08:41→20:55)
[2018-12-28] MEDS: DIGOXIN 125 MCG TAB PO SCH (08:41)
--- NOTE | 2018-12-28 09:13 | PDCARPN ---
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 Echo this admission with ejection fraction of 15-20%, mild LVH, septal wall flattening c/w RV pressure/volume O/L, mild-mod RV dilation with severe RV dysfunction, mild biatrial dilation, mechanical MVR with mean gradient 4, mod AR , mild TR with annuloplasty ring, RVSP 40. ISABEL showed no e/o vegetation. BNP was elevated to >94139, pt had weight gain/edema, pleural effusion on CXR. Plan: #. acute SCHF: new diagnosis in setting of infection has diuresed well on IV diuretics and is back to home dosing of Lasix appears mostly euvolemic #. Sepsis 2/2 enterococcal bacteremia: Source is urinary CT showed non-obstructing 1.5 cm stone at left UPJ, no hydro UCx also with enterococcus ISABEL neg for vegetation Cont abx per ID/hospital med #. 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 A fib in RVR: rates appears mostly controlled stopped dilt with low EF Dig level wnl consider increased BB if rates remain elevated 12/28/18 08:59 Subjective: Feeling well. No f/c. Ambulating. No shortness of breath, pnd/orthopnea, palps, edema. Reviewed/Discussed With: hospitalist Objective: Vital Signs (8 Hrs) Temp Pulse Resp BP Pulse Ox 12/28/18 06:50 98.1 F 116 H 18 130/77 H 92 12/28/18 03:04 97.9 F 129 H 18 115/70 93 Intake/Output (24 Hrs) 12/27/18 12/28/18 12/29/18 05:59 05:59 05:59 Intake Total 1750 600 Output Total 3950 1700 Balance -2200 -1100 Intake: Oral (ml) 1100 500 IV Intake (ml) 350 IV Infused (ml) 300 100 Ampicillin Sodium 2 gm In 300 100 Ns 100 ml @ 200 mls/hr IV Q4H [facility] Rx#:[id number] Output: Urine (ml) 3950 1700 Bedside Commode 3950 1100 Toilet 600 Other: Weight 73.1 kg 72.9 kg Intake Quantity Yes Sufficient Number of Voids Bedside Commode 1 1 Toilet 1 Result Diagrams: 12/28/18 05:30 12/28/18 05:30 Telemetry: reviewed/ AF - Physical Exam Constitutional: no apparent distress Eyes: PERRL, anicteric sclera Cardiovascular: systolic murmur, irregularly irregular Respiratory: reduced air movement, other (crackles L base) Skin: no rashes, no abrasions, no edema Neurologic: AAOx3 Psychiatric: cooperative, interactive ICD10 Worksheet Patient Problems: Problems Problem Status Onset Atrial fibrillation Acute Pneumonia Acute Elevated troponin Acute Aortic valve insufficiency Chronic S/P tricuspid valve repair Acute ~01/08/17 Acute blood loss anemia Acute Chronic anticoagulation Chronic S/P Maze operation for atrial fibrillation Acute ~01/08/17 S/P mitral valve replacement with metallic valve Acute ~01/08/17 Longstanding persistent atrial fibrillation Chronic Tricuspid regurgitation Chronic Mitral stenosis, supravalvar mitral ring Chronic
--- NOTE | 2018-12-28 09:56 | SOAPPROG ---
TONE Progress Note Assessment/Plan: Assessment: Left UPJ stone Enterococcus UTI- resolving Plan: cysto, left ureteroscopy, laser lithotripsy scheduled for SundayDecember 30 at 4:30 Please plan accordingly with anticoagulation and let me know if this time won 't work for the patient 12/27/18 12:33 12/28/18 09:55 Objective: Vital Signs Temp Pulse Resp BP Pulse Ox 36.7 C 116 H 18 130/77 H 92 12/28/18 06:50 12/28/18 06:50 12/28/18 06:50 12/28/18 06:50 12/28/18 06:50 Laboratory Results 12/28/18 05:30 12/28/18 05:30 12/27/18 12/28/18 12/29/18 05:59 05:59 05:59 Intake Total 1750 600 Output Total 3950 1700 Balance -2200 -1100 PT 27.4 SEC (12.0-15.0) H 12/28/18 05:30 INR 2.71 (0.83-1.16) H 12/28/18 05:30 ICD10 Worksheet Patient Problems: Problems Problem Status Onset Atrial fibrillation Acute Elevated troponin Acute Pneumonia Acute Acute blood loss anemia Acute S/P Maze operation for atrial fibrillation Acute ~01/08/17 S/P mitral valve replacement with metallic valve Acute ~01/08/17 S/P tricuspid valve repair Acute ~01/08/17 Aortic valve insufficiency Chronic Chronic anticoagulation Chronic Longstanding persistent atrial fibrillation Chronic Mitral stenosis, supravalvar mitral ring Chronic Tricuspid regurgitation Chronic
--- NOTE | 2018-12-28 15:20 | HOSPPROG ---
Hospitalist Progress Note Assessment/Plan: AHRF 2/2 acute HF -Oral Lasix -cont to monitor I&O's, daily wts -echo showed EF down to 10-15% which is significant drop from prior of 55% in 2017 -cardiology following Sepsis 2/2 enterococcal bacteremia - (HR, RR) Source is urinary. CT showed non- obstructing 1.5 cm stone at left UPJ, no hydro. UCx also with enterococcus. ISABEL neg for vegetation -cont Ampicillin, ID following, appreciate assistance -Rpt BCx's NGTD Mechanical valve on chronic anticoagulation - elevated INR. No e/o vegetation on ISABEL -Hold Coumadin today -Plan for Heparin bridge -Surgery on Sunday A fib in RVR - HR better controlled with addition of dig -stopped dilt with low EF -cont metoprolol to 100 mg bid -s/p IV dig load, cont po dig Nephrolithiasis - 1.5 cm L UPJ stone, non-obstructing, no hydro. This is likely cause of sepsis. -Surgery on Sunday Elevated troponin - no chest pain, trending down, suspect strain 2/2 acute HF Diabetes - pt not on oral hypoglycemics, a1c 7.1 -defer SSI for now since bg's 100's Constipation, con bowel regimen. had a BM earlier Full code Dispo - cont inpatient Subjective: no cp or sob. no n/v. Objective: Vital Signs Temp Pulse Resp BP Pulse Ox 36.6 C 82 18 114/80 98 12/28/18 11:10 12/28/18 11:10 12/28/18 11:10 12/28/18 11:10 12/28/18 11:10 Laboratory Results 12/28/18 05:30 12/28/18 05:30 12/27/18 12/28/18 12/29/18 05:59 05:59 05:59 Intake Total 1750 600 Output Total 3950 1700 1220 Balance -2200 -1100 -1220 PT 27.4 SEC (12.0-15.0) H 12/28/18 05:30 INR 2.71 (0.83-1.16) H 12/28/18 05:30 - Physical Exam Constitutional: no apparent distress Eyes: PERRL, EOMI Ears, Nose, Mouth, Throat: moist mucous membranes, hearing normal Cardiovascular: regular rate and rhythym, no murmur, rub, or gallop, No edema Respiratory: no respiratory distress, no rales or rhonchi, clear to auscultation Gastrointestinal: normoactive bowel sounds, soft, non-tender abdomen Skin: warm Neurologic: AAOx3 Psychiatric: interacting appropriately, not anxious, not encephalopathic Lymph, Heme, Immunologic: No petechiae ICD10 Worksheet Patient Problems: Problems Problem Status Onset Atrial fibrillation Acute Elevated troponin Acute Pneumonia Acute Acute blood loss anemia Acute S/P Maze operation for atrial fibrillation Acute ~01/08/17 S/P mitral valve replacement with metallic valve Acute ~01/08/17 S/P tricuspid valve repair Acute ~01/08/17 Aortic valve insufficiency Chronic Chronic anticoagulation Chronic Longstanding persistent atrial fibrillation Chronic Mitral stenosis, supravalvar mitral ring Chronic Tricuspid regurgitation Chronic
--- NOTE | 2018-12-28 15:22 | PCMIDPN ---
Assessment/Plan: Assessment/Plan: * Enterococcal bacteremia with underlying prosthetic mitral valve and prior tricuspid valve annuloplasty: ISABEL shows no evidence of prosthetic valve vegetation or dysfunction. Suspect most likely enterococcal bacteremia associated with urinary etiology in the setting of nephrolithiasis. Repeat blood culture show clearing of bacteremia. Plans for management of nephrolithiasis early next week with coordination of anticoagulation by Cardiology. Plan to continue ampicillin with anticipated 2 week duration of therapy given no evidence of endocarditis. Will ultimately need repeat echocardiogram over time to ensure no development of valvular dysfunction or vegetation. * Increased LFTs: Mild increase in AST/ALT. May be related to acute illness. Continue to monitor over time. Time spent, greater than 25 min, which greater than half was spent in education/ counseling coordination of care related to enterococcal bacteremia and plan of care. 12/28/18 15:19 12/28/18 15:22 Subjective: Patient complains of shortness of breath. Objective: Vital Signs Temp Pulse Resp BP Pulse Ox 36.6 C 82 18 114/80 98 12/28/18 11:10 12/28/18 11:10 12/28/18 11:10 12/28/18 11:10 12/28/18 11:10 Laboratory Results 12/28/18 05:30 12/28/18 05:30 12/27/18 12/28/18 12/29/18 05:59 05:59 05:59 Intake Total 1750 600 Output Total 3950 1700 1220 Balance -2200 -1100 -1220 Ampicillin # 5 Blood cultures x2 12/25/2018 no growth Laboratory Tests 12/28/18 05:30 Total Bilirubin 0.9 AST 75 H ALT 102 H Alkaline Phosphatase 93 - Physical Exam General Appearance: alert, no apparent distress EENT: No thrush, No conjunctival petechiae Respiratory: lungs clear, No respiratory distress Cardiac/Chest: irregularly irregular Abdomen: non-tender, No distended Skin: No embolic lesions ICD10 Worksheet Patient Problems: Problems Problem Status Onset Atrial fibrillation Acute Elevated troponin Acute Pneumonia Acute Acute blood loss anemia Acute S/P Maze operation for atrial fibrillation Acute ~01/08/17 S/P mitral valve replacement with metallic valve Acute ~01/08/17 S/P tricuspid valve repair Acute ~01/08/17 Aortic valve insufficiency Chronic Chronic anticoagulation Chronic Longstanding persistent atrial fibrillation Chronic Mitral stenosis, supravalvar mitral ring Chronic Tricuspid regurgitation Chronic
[2018-12-28] MEDS ORDERED: WARFARIN SODIUM 4 MG TAB PO ONE (16:00)
[2018-12-28] MEDS: ATORVASTATIN CALCIUM 20 MG TAB PO SCH (20:55)
[2018-12-29] MEDS: AMPICILLIN SODIUM 2 GM in NS 100 ML IV SCH ×6 (01:04→20:40)
[2018-12-29 05:59] LABS: INR 2.06 (0.83-1.16); PROTIME(PATIENT) 22.2 SEC (12.0-15.0)
[2018-12-29] MEDS ORDERED: POTASSIUM CL 10 MEQ TAB PO ONE (08:01)
--- NOTE | 2018-12-29 08:07 | SOAPPROG ---
TONE Progress Note Assessment/Plan: Assessment: Left UPJ stone Enterococcus UTI- resolving Plan: consent obtained for procedure tomorrow cysto, left ureteroscopy, laser lithotripsy scheduled for SundayDecember 30 at 4:30 Please plan accordingly with anticoagulation and let me know if this time won 't work for the patient 12/27/18 12:33 12/28/18 09:55 12/29/18 08:07 Subjective: Doing well no new complaints today Objective: abd soft, non tender, no cva tenderness Vital Signs Temp Pulse Resp BP Pulse Ox 36.5 C 109 H 18 106/81 H 95 12/29/18 07:45 12/29/18 07:45 12/29/18 07:45 12/29/18 07:45 12/29/18 07:45 Laboratory Results 12/28/18 05:30 12/29/18 05:15 12/28/18 12/29/18 12/30/18 05:59 05:59 05:59 Intake Total 600 650 Output Total 1700 2470 200 Balance -1100 -1820 -200 PT 22.2 SEC (12.0-15.0) H 12/29/18 05:15 INR 2.06 (0.83-1.16) H 12/29/18 05:15 ICD10 Worksheet Patient Problems: Problems Problem Status Onset Atrial fibrillation Acute Elevated troponin Acute Pneumonia Acute Acute blood loss anemia Acute S/P Maze operation for atrial fibrillation Acute ~01/08/17 S/P mitral valve replacement with metallic valve Acute ~01/08/17 S/P tricuspid valve repair Acute ~01/08/17 Aortic valve insufficiency Chronic Chronic anticoagulation Chronic Longstanding persistent atrial fibrillation Chronic Mitral stenosis, supravalvar mitral ring Chronic Tricuspid regurgitation Chronic
[2018-12-29] MEDS: FUROSEMIDE 80 MG TAB PO SCH ×2 (09:17→16:05)
[2018-12-29] MEDS: ASPIRIN 81 MG CHEWABLE TAB PO SCH (09:17)
[2018-12-29] MEDS: DIGOXIN 125 MCG TAB PO SCH (09:17)
[2018-12-29] MEDS: METOPROLOL TARTRATE 100 MG TAB PO SCH ×2 (09:17→20:45)
--- NOTE | 2018-12-29 09:36 | PDCARPN ---
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 Echo this admission with ejection fraction of 15-20%, mild LVH, septal wall flattening c/w RV pressure/volume O/L, mild-mod RV dilation with severe RV dysfunction, mild biatrial dilation, mechanical MVR with mean gradient 4, mod AR , mild TR with annuloplasty ring, RVSP 40. ISABEL showed no e/o vegetation. BNP was elevated to >69150, pt had weight gain/edema, pleural effusion on CXR. Plan: #. acute SCHF: new diagnosis in setting of infection has diuresed well on IV diuretics and is back to home dosing of Lasix appears mostly euvolemic #. Sepsis 2/2 enterococcal bacteremia: Source is urinary CT showed non-obstructing 1.5 cm stone at left UPJ, no hydro Will need urology procedure tomorrow UCx also with enterococcus ISABEL neg for vegetation Cont abx per ID/hospital med #. 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 A fib in RVR: rates appears mostly controlled stopped dilt with low EF Dig level wnl consider increased BB if rates remain elevated 12/29/18 09:33 Subjective: Feels well. No dyspnea, F/C. Reviewed/Discussed With: hospitalist, other (Dr. Campos) Objective: Vital Signs (8 Hrs) Temp Pulse Resp BP Pulse Ox 12/29/18 07:45 97.7 F 109 H 18 106/81 H 95 12/29/18 03:53 99.3 F 102 H 20 118/84 H 96 Intake/Output (24 Hrs) 12/28/18 12/29/18 12/30/18 05:59 05:59 05:59 Intake Total 600 650 Output Total 1700 2470 200 Balance -1100 -1820 -200 Intake: Oral (ml) 500 250 IV Infused (ml) 100 400 Ampicillin Sodium 2 gm In 100 400 Ns 100 ml @ 200 mls/hr IV Q4H [facility] Rx#:[id number] Output: Urine (ml) 1700 2470 200 Bedside Commode 1100 500 200 Toilet 600 1970 Other: Weight 72.9 kg 68.6 kg Number of Voids Bedside Commode 1 Toilet 1 1 Number of Stools Toilet 1 Result Diagrams: 12/28/18 05:30 12/29/18 05:15 Telemetry: reviewed AF - Physical Exam Constitutional: no apparent distress Eyes: PERRL, anicteric sclera Cardiovascular: irregularly irregular Respiratory: clear to auscultate bilat, no crackles Skin: other (trace ankle edema) Neurologic: AAOx3 Psychiatric: cooperative, interactive ICD10 Worksheet Patient Problems: Problems Problem Status Onset Atrial fibrillation Acute Elevated troponin Acute Pneumonia Acute Acute blood loss anemia Acute S/P Maze operation for atrial fibrillation Acute ~01/08/17 S/P mitral valve replacement with metallic valve Acute ~01/08/17 S/P tricuspid valve repair Acute ~01/08/17 Aortic valve insufficiency Chronic Chronic anticoagulation Chronic Longstanding persistent atrial fibrillation Chronic Mitral stenosis, supravalvar mitral ring Chronic Tricuspid regurgitation Chronic
--- NOTE | 2018-12-29 10:20 | ASMTCMCOM ---
CM Note CM Note Notes: Pts case discussed w/ Dr. Campos. Pt will most likely need ivabx - ampicillin 2gm q4 hrs. Referral sent to [facility]. CM met w/ pt and informed him of the referral sent. Pt believes that he had [facility] in the past. CM sent referral to [facility] for RN services. [facility] will most likely be able to accept. CM confirmed pts address, phone number and PCP info. CM to follow. Plan: Juan with [facility]; RN Date Signed: 12/29/2018 10:19 AM Electronically Signed By:MARLENE Coles
[2018-12-29 10:52] LABS: PLATELET COUNT 216 10^3/uL (150-400)
[2018-12-29 11:03] LABS: INR 1.96 (0.83-1.16); PROTIME(PATIENT) 21.4 SEC (12.0-15.0)
[2018-12-29] MEDS: HEPARIN/DEXTROSE 500 ML IV SCH (11:45)
--- NOTE | 2018-12-29 15:29 | HOSPPROG ---
Hospitalist Progress Note Assessment/Plan: AHRF 2/2 acute HF -Oral Lasix -cont to monitor I&O's, daily wts -echo showed EF down to 10-15% which is significant drop from prior of 55% in 2017 -cardiology following Sepsis 2/2 enterococcal bacteremia - (HR, RR) Source is urinary. CT showed non- obstructing 1.5 cm stone at left UPJ, no hydro. UCx also with enterococcus. ISABEL neg for vegetation -cont Ampicillin, ID following, appreciate assistance -Rpt BCx's NGTD Mechanical valve on chronic anticoagulation - elevated INR. No e/o vegetation on ISABEL -Hold Coumadin today -start Heparin bridge -Surgery tomorrow A fib in RVR - HR better controlled with addition of dig -stopped dilt with low EF -cont metoprolol to 100 mg bid -s/p IV dig load, cont po dig Nephrolithiasis - 1.5 cm L UPJ stone, non-obstructing, no hydro. This is likely cause of sepsis. -Surgery tomorrow Elevated troponin - no chest pain, trending down, suspect strain 2/2 acute HF Diabetes - pt not on oral hypoglycemics, a1c 7.1 -defer SSI for now since bg's 100's Constipation, con bowel regimen. had a BM earlier Full code Dispo - cont inpatient Subjective: no cp or sob. no n/v. feels good. awaiting surgery tomorrow Objective: Vital Signs Temp Pulse Resp BP Pulse Ox 36.7 C 104 H 18 103/60 96 12/29/18 11:36 12/29/18 11:36 12/29/18 11:36 12/29/18 11:36 12/29/18 11:36 Laboratory Results 12/29/18 10:40 12/29/18 05:15 12/28/18 12/29/18 12/30/18 05:59 05:59 05:59 Intake Total 600 650 Output Total 1700 2470 700 Balance -1100 -1820 -700 PT 21.4 SEC (12.0-15.0) H 12/29/18 10:40 INR 1.96 (0.83-1.16) H 12/29/18 10:40 - Physical Exam Constitutional: no apparent distress Eyes: PERRL, EOMI Ears, Nose, Mouth, Throat: moist mucous membranes, hearing normal Cardiovascular: regular rate and rhythym, No edema Respiratory: no respiratory distress, no rales or rhonchi Gastrointestinal: normoactive bowel sounds, soft, non-tender abdomen Skin: warm Neurologic: AAOx3 Psychiatric: interacting appropriately, not anxious, not encephalopathic Lymph, Heme, Immunologic: No petechiae ICD10 Worksheet Patient Problems: Problems Problem Status Onset Atrial fibrillation Acute Elevated troponin Acute Pneumonia Acute Acute blood loss anemia Acute S/P Maze operation for atrial fibrillation Acute ~01/08/17 S/P mitral valve replacement with metallic valve Acute ~01/08/17 S/P tricuspid valve repair Acute ~01/08/17 Aortic valve insufficiency Chronic Chronic anticoagulation Chronic Longstanding persistent atrial fibrillation Chronic Mitral stenosis, supravalvar mitral ring Chronic Tricuspid regurgitation Chronic
[2018-12-29] MEDS: SENNOSIDES/DOCUSATE SODIUM TAB PO SCH ×2 (16:05→20:40)
[2018-12-29] MEDS: ATORVASTATIN CALCIUM 20 MG TAB PO SCH (20:40)
[2018-12-29] MEDS: HEPARIN 10,000 UNIT/10 ML MDV (1,000 UNIT/ML) IVP PRN (20:52)
[2018-12-30] MEDS: AMPICILLIN SODIUM 2 GM in NS 100 ML IV SCH ×7 (00:55→23:32)
[2018-12-30 03:43] LABS: INR 1.81 (0.83-1.16); PROTIME(PATIENT) 20.1 SEC (12.0-15.0)
[2018-12-30] MEDS ORDERED: POTASSIUM CL 10 MEQ TAB PO ONE (07:40)
[2018-12-30] MEDS: ASPIRIN 81 MG CHEWABLE TAB PO SCH (09:48)
[2018-12-30] MEDS: SENNOSIDES/DOCUSATE SODIUM TAB PO SCH ×2 (09:48→20:43)
[2018-12-30] MEDS: FUROSEMIDE 80 MG TAB PO SCH ×2 (09:48→13:39)
[2018-12-30] MEDS: METOPROLOL TARTRATE 100 MG TAB PO SCH ×2 (09:48→20:42)
[2018-12-30] MEDS: DIGOXIN 125 MCG TAB PO SCH (09:49)
--- NOTE | 2018-12-30 12:10 | HOSPPROG ---
Hospitalist Progress Note Assessment/Plan: 83 yo M we mechanical MV, TV here w enterococcal bacteremia, nephrolithiasis, decrement in LVEF AHRF 2/2 acute HF -Oral Lasix -cont to monitor I&O's, daily wts -echo showed EF down to 10-15% which is significant drop from prior of 55% in 2017 -cardiology following new sCHF: euvolemic repeat echo late this admit or as outpt to eval for recovery Sepsis 2/2 enterococcal bacteremia - (HR, RR) Source is urinary. CT showed non- obstructing 1.5 cm stone at left UPJ, no hydro. UCx also with enterococcus. ISABEL neg for vegetation -cont Ampicillin, ID following, appreciate assistance -Rpt BCx's neg Mechanical valve on chronic anticoagulation - elevated INR. No e/o vegetation on ISABEL -Hold Coumadin today -start Heparin bridge -stone retrieval today A fib in RVR - HR better controlled with addition of dig -stopped dilt with low EF -cont metoprolol to 100 mg bid -s/p IV dig load, cont po dig rate OK Nephrolithiasis - 1.5 cm L UPJ stone, non-obstructing, no hydro. This is likely cause of sepsis. -Surgery tomorrow Elevated troponin - no chest pain, trending down, suspect strain 2/2 acute HF Diabetes - pt not on oral hypoglycemics, a1c 7.1 -defer SSI for now since bg's 100's Constipation, con bowel regimen. had a BM earlier Full code Dispo - cont inpatient Subjective: case d/w Dr. Vincent Objective: Vital Signs Temp Pulse Resp BP Pulse Ox 36.7 C 91 19 113/58 L 94 12/30/18 11:27 12/30/18 11:27 12/30/18 11:27 12/30/18 11:27 12/30/18 11:27 Microbiology 12/25/18 05:58 Blood Culture - Final Blood 12/25/18 05:58 Blood Culture - Final Blood Laboratory Results 12/29/18 10:40 12/30/18 02:40 12/29/18 12/30/18 12/31/18 05:59 05:59 05:59 Intake Total 650 1628 110 Output Total 2470 1650 100 Balance -1820 -22 10 PT 20.1 SEC (12.0-15.0) H 12/30/18 02:40 INR 1.81 (0.83-1.16) H 12/30/18 02:40 - Physical Exam Constitutional: no apparent distress, appears nourished Eyes: PERRL, anicteric sclera Ears, Nose, Mouth, Throat: moist mucous membranes, hearing normal Cardiovascular: regular rate and rhythym, systolic murmur, diastolic murmur Respiratory: no respiratory distress, no rales or rhonchi Gastrointestinal: normoactive bowel sounds, soft, non-tender abdomen Genitourinary: No mccoy in urethra Skin: warm, normal color Musculoskeletal: full muscle strength, no muscle tenderness Neurologic: AAOx3 ICD10 Worksheet Patient Problems: Problems Problem Status Onset Atrial fibrillation Acute Chronic Disease Mgmt/Transitional Care Acute Elevated troponin Acute Pneumonia Acute Acute blood loss anemia Acute S/P Maze operation for atrial fibrillation Acute ~01/08/17 S/P mitral valve replacement with metallic valve Acute ~01/08/17 S/P tricuspid valve repair Acute ~01/08/17 Aortic valve insufficiency Chronic Chronic anticoagulation Chronic Longstanding persistent atrial fibrillation Chronic Mitral stenosis, supravalvar mitral ring Chronic Tricuspid regurgitation Chronic
--- NOTE | 2018-12-30 15:25 | PDCARPN ---
Cardiology Progress Note Assessment/Plan: Assessment/plan: 83-year-old male with valvular disease. In 1999 he had mitral valve repair. In 2016 he had a mechanical mitral valve replacement and tricuspid valve ring. Other history includes hypertension, diabetes, sleep apnea and atrial fibrillation. He was admitted on December 23 with dyspnea and fever. He was found to have enterococcal bacteremia from urinary source. He does have a left ureteropelvic junction stone and is scheduled for lithotripsy today. During this admission he was found to have a significant decrement in his ejection fraction previously normal, now 15-20%. No obvious valvular vegetations seen on ISABEL. 1. New onset systolic heart failure: This may be related to rapid atrial fibrillation and sepsis. He does not have a history of significant coronary disease. After his urological procedure, will transition to Toprol and consider NGOZI-inhibitor. Continue Lasix. Would repeat limited echo prior to discharge. Will need close outpatient follow-up as well. 2. Atrial fibrillation: Improved control with digoxin and metoprolol. He is on Coumadin both for his atrial fibrillation with a CHADS2 Vasc score of 4 and for his mechanical mitral valve. 3. Valvular heart disease: Normally functioning mechanical mitral valve, moderate aortic regurgitation, tricuspid valve repair. No obvious valvular vegetation. He is currently on heparin drip as his INR drift down slightly. Will defer to Urology about when to resume his heparin drip post lithotripsy and bridge back up to therapeutic INR. 4. Ureteral stone/UTI/bacteremia: Followed by infectious disease and urology. On appropriate antibiotic therapy. 12/30/18 15:27 Subjective: Reports less dyspnea. No angina. No lower extremity edema. No abdominal pain. Reviewed/Discussed With: family, hospitalist, multidisciplinary team Time Spent with Patient: greater than 25 minutes Time Spent with Patient: Greater than 25 minutes spent on this patients care, greater than 50% of time spent counseling, educating, and coordinating care regarding the above mentioned plan. Objective: Vital Signs (8 Hrs) Temp Pulse Resp BP Pulse Ox 12/30/18 12:14 108 H 96 12/30/18 11:27 36.7 C 91 19 113/58 L 94 12/30/18 08:10 36.7 C 91 19 113/58 L 94 12/30/18 07:36 37.1 C 82 20 125/96 H 97 Intake/Output (24 Hrs) 12/29/18 12/30/18 12/31/18 05:59 05:59 05:59 Intake Total 650 1628 340 Output Total 2470 1650 100 Balance -1819 - 240 Intake: Oral (ml) 250 680 120 IV Intake (ml) 75 IV Infused (ml) 400 873 220 Ampicillin Sodium 2 gm In 400 300 220 Ns 100 ml @ 200 mls/hr IV Q4H [facility] Rx#:[id number] Heparin/Dextrose 500 ml @ 573 Per Protocol IV CONT [facility] Rx#:[id number] Output: Urine (ml) 2470 1650 100 Bedside Commode 500 200 Toilet 1970 700 100 Urinal 750 Other: Weight 68.6 kg 74.389 kg Number of Voids Toilet 1 1 Number of Stools Toilet 1 1 1 No acute distress. Sitting up in chair JVP 12 cm water. Irregular regular rhythm. [place] mechanical S1. No murmur. Lungs clear bilaterally wheeze rhonchi rales No lower extremity edema Result Diagrams: 12/29/18 10:40 12/30/18 02:40 Telemetry: Atrial fibrillation with controlled ventricular response. 2 episodes of nonsustained VT over the past couple of days. ICD10 Worksheet Patient Problems: Problems Problem Status Onset Chronic Disease Mgmt/Transitional Care Acute Atrial fibrillation Acute Pneumonia Acute Elevated troponin Acute Aortic valve insufficiency Chronic S/P tricuspid valve repair Acute ~01/08/17 Acute blood loss anemia Acute Chronic anticoagulation Chronic S/P Maze operation for atrial fibrillation Acute ~01/08/17 S/P mitral valve replacement with metallic valve Acute ~01/08/17 Longstanding persistent atrial fibrillation Chronic Tricuspid regurgitation Chronic Mitral stenosis, supravalvar mitral ring Chronic
--- NOTE | 2018-12-30 15:30 | PCMIDPN ---
Assessment/Plan: Assessment: Enterococcal bacteremia in a patient with underlying prosthetic mitral valve as well as a prior tricuspid valve annuloplasty. Patient is without sign of overt endocarditis on trans esophageal echocardiogram. Alternate source is UTI with nephrolithiasis. Patient did have quick clearance of bacteremia which supports the latter kidney source as probable cause. Patient to get the kidney stone removed later today. Meantime he remains on IV Unasyn. Isolate is de guzman sensitive. Plan: 1. Continue IV ampicillin . 2. Full 2 week course of ampicillin coverage from cleared blood cultures. 12/30/18 15:31 Subjective: Patient is sitting in his chair in his hospital room. He is awaiting his procedure for kidney stone removal. He reports feeling fine. No new symptoms. Denies rash. Objective: Ampicillin # 6 Vital Signs Temp Pulse Resp BP Pulse Ox 36.7 C 108 H 19 113/58 L 96 12/30/18 11:27 12/30/18 12:14 12/30/18 11:27 12/30/18 11:27 12/30/18 12:14 Microbiology 12/25/18 05:58 Blood Culture - Final Blood 12/25/18 05:58 Blood Culture - Final Blood Laboratory Results 12/29/18 10:40 12/30/18 02:40 12/29/18 12/30/18 12/31/18 05:59 05:59 05:59 Intake Total 650 1628 340 Output Total 2470 1650 100 Balance -1820 -22 240 - Physical Exam General Appearance: WD/WN, alert, no apparent distress, non-toxic Respiratory: lungs clear, normal breath sounds, No respiratory distress Cardiac/Chest: regular rate, rhythm, No tachycardia, No irregularly irregular Skin: normal color, warm/dry, No rash Neuro/Psych: alert, normal mood/affect, oriented x 3 ICD10 Worksheet Patient Problems: Problems Problem Status Onset Atrial fibrillation Acute Chronic Disease Mgmt/Transitional Care Acute Elevated troponin Acute Pneumonia Acute Acute blood loss anemia Acute S/P Maze operation for atrial fibrillation Acute ~01/08/17 S/P mitral valve replacement with metallic valve Acute ~01/08/17 S/P tricuspid valve repair Acute ~01/08/17 Aortic valve insufficiency Chronic Chronic anticoagulation Chronic Longstanding persistent atrial fibrillation Chronic Mitral stenosis, supravalvar mitral ring Chronic Tricuspid regurgitation Chronic
[2018-12-30] MEDS ORDERED: LR 1,000 ML IV ONE (15:39)
[2018-12-30] MEDS ORDERED: IOPAMIDOL (ISOVUE-300) 150 ML BTL ONE (15:49)
[2018-12-30] MEDS ORDERED: IOPAMIDOL (ISOVUE-M 300) 15 ML VIAL ONE (16:03)
--- NOTE | 2018-12-30 16:06 | PDANEPAE ---
ANE Past Medical History - Cardiovascular History Hx Hypertension: Yes Hx Arrhythmias: Yes Hx Chest Pain: Yes Hx Coronary Artery / Peripheral Vascular Disease: Yes Hx CHF / Valvular Disease: Yes Hx Palpitations: Yes Cardiovascular History Comment: htn. chf. afib with cardioversion x2. aortic valve regurgitation. mitral stenosis. tricupsid regurgitation. lower extremity edema. syncope. hx of chest pains and palpitations - Pulmonary History Hx COPD: Yes Hx Asthma/Reactive Airway Disease: No Hx Recent Upper Respiratory Infection: No Hx Oxygen in Use at Home: No Hx Sleep Apnea: No Sleep Apnea Screening Result - Last Documented: Positive Pulmonary History Comment: gaye positive uses cpap- instructed pt to bring to hospital - Neurologic History Hx Cerebrovascular Accident: No Hx Seizures: No Hx Dementia: No - Endocrine History Hx Diabetes: No Hypothyroid: No Hyperthyroid: No Obesity: no Endocrine History Comment: parathyroid tumor removal 2006 - Renal History Hx Renal Disorders: Yes Renal History Comment: hx of kidney stones - Liver History Hx Hepatic Disorders: No - Neurological & Psychiatric Hx Hx Neurological and Psychiatric Disorders: No - Cancer History Hx Cancer: No - Congenital Disorder History Hx Congenital Disorders: No - GI History GERD: mild Hx Gastrointestinal Disorders: Yes Gastrointestinal History Comment: reflux - Other Health History Other Health History: wears glasses and bilateral hearing aides - Chronic Pain History Chronic Pain: No - Surgical History Prior Surgeries: skilled labor 09/01/16 and 01/25/15. appy. cataractts. kidney stone extraction. mvr 2000. parathyroid tumor removal 2006 ANE Review of Systems Review of Systems: ANE Patient History - Allergies Allergies/Adverse Reactions: No Known Allergies Allergy (Verified 12/07/16 11:29) - Home Medications Home Medications: Atorvastatin Calcium [Lipitor 20 mg (*)] 20 mg PO HS 12/27/16 [Last Taken ] Herbals/Supplements -Info Only 1 ea PO DAILY 12/27/16 [Last Taken Unknown] Multivitamins [Multivitamin (*)] 1 each PO DAILY 12/27/16 [Last Taken 12/23/18] Metoprolol Tartrate [Lopressor 50 mg (*)] 50 mg PO BID 12/23/18 [Last Taken 02/05] Psyllium Husk/Aspartame [Metamucil Fiber Singles Packet] 3.4 gm PO DAILY@12 02/05 [Last Taken Unknown] Warfarin Sodium [Coumadin 5MG (*)] 5 mg PO MOFR 12/23/18 [Last Taken 12/23/18] Warfarin Sodium [Coumadin 5MG (*)] 7.5 mg PO SUTUWETHSA 12/23/18 [Last Taken 01/05] - NPO status NPO Since - Liquids (Date): 12/29/18 NPO Since - Liquids (Time): 23:59 NPO Since - Solids (Date): 12/30/18 NPO Since - Solids (Time): 23:59 - Smoking Hx Smoking Status: Former smoker - Alcohol Use Alcohol Use: None - Family Anes Hx Family Hx Anesthesia Complications: none ANE Labs/Vital Signs - Labs Result Diagrams: 12/29/18 10:40 12/30/18 02:40 - Vital Signs Blood Pressure: 113/58 Heart Rate: 108 Respiratory Rate: 19 O2 Sat (%): 96 Height: 175.26 cm Weight: 74.389 kg ANE Physical Exam - Airway Neck exam: FROM Mallampati Score: Class 2 Mouth exam: normal dental/mouth exam - Pulmonary Pulmonary: no respiratory distress - Cardiovascular Cardiovascular: regular rate and rhythym - ASA Status ASA Status: III ANE Anesthesia Plan Anesthesia Plan: general endotracheal anesthesia
[2018-12-30] MEDS ORDERED: fentaNYL 100 MCG/2 ML INJ ONE (16:08)
[2018-12-30] MEDS ORDERED: ROCURONIUM 50 MG/5 ML VIAL ONE (16:09)
[2018-12-30] MEDS ORDERED: PROPOFOL/EMULSION 500 MG/50 ML BOTTLE IV ONE (16:09)
[2018-12-30] MEDS ORDERED: LIDOCAINE 2% 100 MG/5 ML SYR ONE (16:10)
[2018-12-30] MEDS ORDERED: ALBUTEROL 3 ML DEYVIAL IH PRN (17:49)
[2018-12-30] MEDS ORDERED: NALOXONE HCL 0.4 MG/ML INJ IVP PRN (17:49)
[2018-12-30] MEDS ORDERED: ONDANSETRON 4 MG/2 ML VIAL IVP PRN (17:49)
[2018-12-30] MEDS ORDERED: fentaNYL 100 MCG/2 ML INJ IVP PRN (17:49)
--- NOTE | 2018-12-30 17:50 | POSTANESTH ---
Post Anesthetic Evaluation Cardiovascular Status: Similar to Pre-Op Cond Respiratory Status: Similar to Pre-op Cond. Level of Consciousness/Mental Status: Mildly Sleepy, Arousable Pain Control: Adequate, Prn Tx Ordered Nausea/Vomiting Control: Adequate, Prn Tx Ordered Complications Possibly Related to Anesthesia: None Noted
--- NOTE | 2018-12-30 17:57 | POSTOPPROG ---
Post Op Note Date of Operation: 12/30/18 Surgeon: Tino Catalan Anesthesia: GET(General Endotracheal) Pre-op Diagnosis: left renal stone Post-op Diagnosis: left renal stone Indication: removal of stone Procedure: cystoscopy, left ureteroscopy, stent placement Findings: narrowing of distal ureter prevented flexible scope from reaching stone Inf/Abcess present in the surg proc area at time of surgery?: No EBL: Minimal Complications: Due to the narrowing of the distal ureter, I was not able to pass the flexible scope to the level of the stone. I was able to get a rigid scope into the renal pelvis, but this could not be used to laser the stone as the stone was posterior. A second attempt to pass the flexible scope was again met with extreme resistance. Given his history of anti-coagulation, the decision was made not to pursue this stone any further at this time. A ureteral stent was put into place that should be able to softly dilate the ureter over time, making a secondary attempt more successful. A mccoy catheter was left in place due to blood and blood clots in the bladder, this can be removed in the AM if the urine is relatively clear.
[2018-12-30] MEDS: ATORVASTATIN CALCIUM 20 MG TAB PO SCH (20:43)
[2018-12-30] MEDS: ACETAMINOPHEN 325 MG TAB PO PRN (20:56)
[2018-12-30] MEDS: HEPARIN/DEXTROSE 500 ML IV SCH (23:36)
--- NOTE | 2018-12-31 04:08 | GOP ---
[f rep st] OPERATIVE REPORT DATE OF OPERATION: SURGEON: Tino Catalan MD ANESTHESIA: General. PREOPERATIVE DIAGNOSIS: Left renal stone. POSTOPERATIVE DIAGNOSIS: Left renal stone. PROCEDURE PERFORMED: Cystoscopy, left ureteroscopy, stent placement. FINDINGS: INDICATIONS: This is a gentleman with a 1.5 cm left UPJ stone. DESCRIPTION OF PROCEDURE: Consent obtained. Patient was brought into the operating room. Once genera l anesthesia was underway, he was put in the lithotomy position, prepped and draped in normal sterile fashion. A 22-Jamaican rigid scope was passed into his bladder under direct vision. This showed tril obar hypertrophy of the prostate. The bladder showed trabeculation, but no mucosal lesions were seen . The left ureteral orifice was cannulated with a 0.035 hydrophilic-tipped wire. This was followed f luoroscopically up the left ureter and passed above the left stone and into the left renal pelvis. A dual lumen catheter was then advanced into the mid ureter and a second wire was put into place. Ini tial attempts were made to pass a flexible scope over 1 of these wires. Unfortunately, in the distal ureter, the flexible scope became unable to pass up any further. This scope was removed and a rigid ureteroscope was placed. This was followed up the left ureter and made it all the way into the left renal pelvis. However, because of the location of the stone and the rigidity of the scope, the ston e could not be reached or seen. This scope was removed and another attempt was made at passing the f lexible scope. However, we once again met the same resistance in the distal ureter, and given the parveen cohen's difficult medical history, as well as anticoagulation, the decision was made not to proceed a ny further. A 6-Jamaican x 24 cm stent was passed over the guidewire. It was seen to curl fluoroscopi josey in the renal pelvis and cystoscopically in the bladder. The decision was that with the stent i n place, the ureter could be dilated, making flexible ureteroscopy in the future a possibility. The patient's bladder was drained with a Bullock catheter and he was transferred to the recovery room in go od condition. /[id number]/MODL
[2018-12-31] MEDS: AMPICILLIN SODIUM 2 GM in NS 100 ML IV SCH ×5 (05:09→20:12)
[2018-12-31 05:24] LABS: INR 1.5 (0.83-1.16); PROTIME(PATIENT) 17.4 SEC (12.0-15.0)
--- NOTE | 2018-12-31 06:40 | SOAPPROG ---
TONE Progress Note Assessment/Plan: Assessment: Left UPJ stone Enterococcus UTI- resolving stent placement 12/30 gross hematuria Plan: unable to laser the stone yesterday due to narrowing of distal ureter stent in place now that will hopefully dilate the ureter allowing for the procedure to be done a few weeks from now ok to continue with anti-coagulation as needed has gross hematuria- would continue mccoy catheter until bleeding is better controlled irrigate catheter as needed to keep open 12/27/18 12:33 12/28/18 09:55 12/29/18 08:07 12/31/18 06:37 12/31/18 06:40 Subjective: feels ok no complaints this am Objective: mccoy in place with grossly bloody urine says that it flowed overnight and did not require irrigation Vital Signs Temp Pulse Resp BP Pulse Ox 36.2 C 132 H 20 132/94 H 95 12/31/18 04:00 12/31/18 04:00 12/31/18 04:00 12/31/18 04:00 12/31/18 04:00 Microbiology 12/25/18 05:58 Blood Culture - Final Blood 12/25/18 05:58 Blood Culture - Final Blood Laboratory Results 12/31/18 04:37 12/31/18 04:37 12/30/18 12/31/18 01/01/19 05:59 05:59 05:59 Intake Total 1628 1335 Output Total 1650 650 Balance -22 685 PT 17.4 SEC (12.0-15.0) H 12/31/18 04:37 INR 1.50 (0.83-1.16) H 12/31/18 04:37 ICD10 Worksheet Patient Problems: Problems Problem Status Onset Atrial fibrillation Acute Chronic Disease Mgmt/Transitional Care Acute Elevated troponin Acute Pneumonia Acute Acute blood loss anemia Acute S/P Maze operation for atrial fibrillation Acute ~01/08/17 S/P mitral valve replacement with metallic valve Acute ~01/08/17 S/P tricuspid valve repair Acute ~01/08/17 Aortic valve insufficiency Chronic Chronic anticoagulation Chronic Longstanding persistent atrial fibrillation Chronic Mitral stenosis, supravalvar mitral ring Chronic Tricuspid regurgitation Chronic
[2018-12-31] MEDS: ASPIRIN 81 MG CHEWABLE TAB PO SCH (08:06)
[2018-12-31] MEDS: FUROSEMIDE 80 MG TAB PO SCH ×2 (08:06→14:36)
[2018-12-31] MEDS: SENNOSIDES/DOCUSATE SODIUM TAB PO SCH ×2 (08:07→20:04)
[2018-12-31] MEDS: METOPROLOL TARTRATE 100 MG TAB PO SCH (08:07)
[2018-12-31] MEDS: HEPARIN/DEXTROSE 500 ML IV SCH (08:08)
--- NOTE | 2018-12-31 09:08 | HOSPPROG ---
Hospitalist Progress Note Assessment/Plan: 83 yo M we mechanical MV, TV here w enterococcal bacteremia, nephrolithiasis, decrement in LVEF AHRF 2/2 acute HF -Oral Lasix -cont to monitor I&O's, daily wts -echo showed EF down to 10-15% which is significant drop from prior of 55% in 2017 -cardiology following new sCHF: euvolemic repeat echo late this admit or as outpt to eval for recovery Sepsis 2/2 enterococcal bacteremia - (HR, RR) Source is urinary. CT showed non- obstructing 1.5 cm stone at left UPJ, no hydro. UCx also with enterococcus. ISABEL neg for vegetation -cont Ampicillin, ID following, appreciate assistance -Rpt BCx's neg Mechanical valve on chronic anticoagulation - elevated INR. No e/o vegetation on ISABEL on heparin gtt restart warfarin today A fib in RVR - HR better controlled with addition of dig -stopped dilt with low EF -cont metoprolol to 100 mg bid -s/p IV dig load, cont po dig rate OK Nephrolithiasis - 1.5 cm L UPJ stone, non-obstructing, no hydro. This is likely cause of sepsis. retrieval unsuccessful, stent in place hopeful that w dilate distal ureteral stricture allowing for removal Elevated troponin - no chest pain, trending down, suspect strain 2/2 acute HF Diabetes - pt not on oral hypoglycemics, a1c 7.1 -defer SSI for now since bg's 100's Constipation, con bowel regimen. had a BM earlier Full code Dispo - cont inpatient Subjective: case d/w Dr. Catalan. could not remove stone cystoscopically 2/2 distal ureteral stricture- stent placed Objective: Vital Signs Temp Pulse Resp BP Pulse Ox 36.4 C 133 H 20 133/86 H 94 12/31/18 07:16 12/31/18 07:16 12/31/18 07:16 12/31/18 07:16 12/31/18 07:16 Microbiology 12/25/18 05:58 Blood Culture - Final Blood 12/25/18 05:58 Blood Culture - Final Blood Laboratory Results 12/31/18 04:37 12/31/18 04:37 12/30/18 12/31/18 01/01/19 05:59 05:59 05:59 Intake Total 1628 1335 221 Output Total 1650 650 Balance -22 685 221 PT 17.4 SEC (12.0-15.0) H 12/31/18 04:37 INR 1.50 (0.83-1.16) H 12/31/18 04:37 - Physical Exam Constitutional: no apparent distress, appears nourished Eyes: PERRL, anicteric sclera Ears, Nose, Mouth, Throat: moist mucous membranes, hearing normal Cardiovascular: regular rate and rhythym, no murmur, rub, or gallop Respiratory: no respiratory distress, no rales or rhonchi Gastrointestinal: normoactive bowel sounds, soft, non-tender abdomen Genitourinary: mccoy in urethra, other (dark red urine) Skin: warm, normal color Musculoskeletal: full muscle strength Neurologic: AAOx3 Psychiatric: interacting appropriately ICD10 Worksheet Patient Problems: Problems Problem Status Onset Atrial fibrillation Acute Chronic Disease Mgmt/Transitional Care Acute Elevated troponin Acute Pneumonia Acute Acute blood loss anemia Acute S/P Maze operation for atrial fibrillation Acute ~01/08/17 S/P mitral valve replacement with metallic valve Acute ~01/08/17 S/P tricuspid valve repair Acute ~01/08/17 Aortic valve insufficiency Chronic Chronic anticoagulation Chronic Longstanding persistent atrial fibrillation Chronic Mitral stenosis, supravalvar mitral ring Chronic Tricuspid regurgitation Chronic
--- NOTE | 2018-12-31 10:29 | PCMIDPN ---
Assessment/Plan: # Enterococcal bacteremia, urinary source with underlying nephrolithiasis. Also underlying prosthetic mitral valve and prior tricuspid valve annuloplasty with negative ISABEL. Blood cx cleared. Unable to remove stone yesterday, stent placed --continue IV abx though 01/08, planning on home therapy, likely will switch to IV Penicillin for ease of administration at home --recheck LFTs tomorrow --discussed home IV abx with patient -- amoxicillin suppression after IV therapy #LUE swelling: going back on anticoag but will be good to know if DVT present LUE # Anticoagulation: close monitoring of INR while on antibiotic therapy Meds ampicillin 2gm IV q4h #7 Microbiology 12/23/18 21:40 Urine, de guzman-S Enterococcus Faecalis 12/23/18 15:10 Blood Cx 09/21 - de guzman-S Enterococcus Faecalis Subjective: no complaints denies pain Objective: Vital Signs Temp Pulse Resp BP Pulse Ox 36.4 C 133 H 20 133/86 H 94 12/31/18 07:16 12/31/18 07:16 12/31/18 07:16 12/31/18 07:16 12/31/18 07:16 Microbiology 12/25/18 05:58 Blood Culture - Final Blood 12/25/18 05:58 Blood Culture - Final Blood Laboratory Results 12/31/18 04:37 12/31/18 04:37 12/30/18 12/31/18 01/01/19 05:59 05:59 05:59 Intake Total 1628 1335 221 Output Total 1650 650 Balance -22 685 221 - Physical Exam General Appearance: alert, no apparent distress Respiratory: lungs clear, No accessory muscle use Cardiac/Chest: systolic murmur (with click), irregularly irregular Extremities: swelling (LUE swelling), No pedal edema Abdomen: non-tender, soft Male Genitalia: mccoy (hematuria) Skin: normal color, warm/dry, No rash Neuro/Psych: alert, normal mood/affect, oriented x 3 - Line/s RUE PICC Lines: other (no swelling), No drainage, No erythema - Time Spent With Patient Time Spent with Patient: greater than 35 minutes Time Spent with Patient: Greater than 35 minutes spent on this patients care, greater than 50% of time spent counseling, educating, and coordinating care regarding the above mentioned plan. ICD10 Worksheet Patient Problems: Problems Problem Status Onset Atrial fibrillation Acute Chronic Disease Mgmt/Transitional Care Acute Elevated troponin Acute Pneumonia Acute Acute blood loss anemia Acute S/P Maze operation for atrial fibrillation Acute ~01/08/17 S/P mitral valve replacement with metallic valve Acute ~01/08/17 S/P tricuspid valve repair Acute ~01/08/17 Aortic valve insufficiency Chronic Chronic anticoagulation Chronic Longstanding persistent atrial fibrillation Chronic Mitral stenosis, supravalvar mitral ring Chronic Tricuspid regurgitation Chronic
[2018-12-31 10:55] LABS: PLATELET COUNT 299 10^3/uL (150-400)
[2018-12-31] MEDS: DIGOXIN 125 MCG TAB PO SCH (12:44)
[2018-12-31] MEDS ORDERED: WARFARIN SODIUM 7.5 MG TAB PO ONE (13:00)
--- NOTE | 2018-12-31 13:30 | PDCARPN ---
Cardiology Progress Note Assessment/Plan: Assessment/plan: 83-year-old male with valvular disease. In 1999 he had mitral valve repair. In 2016 he had a mechanical mitral valve replacement and tricuspid valve ring. Other history includes hypertension, diabetes, sleep apnea and atrial fibrillation. He was admitted on December 23 with dyspnea and fever. He was found to have enterococcal bacteremia from urinary source. He does have a left ureteropelvic junction stone with attempted removal yesterday. This was unsuccessful due to ureteral stricture, and therefore a left ureteral stent was placed by Dr. Catalan. During this admission he was found to have a significant decrement in his ejection fraction previously normal, now 15- 20%. No obvious valvular vegetations seen on ISABEL. 1. New onset systolic heart failure: This may be related to rapid atrial fibrillation and sepsis. He does not have a history of significant coronary disease. Will transition to Toprol and consider NGOZI-inhibitor once stability of creatinine is documented. Continue Lasix. Would repeat limited echo prior to discharge. Will need close outpatient follow-up as well. 2. Atrial fibrillation: Improved control with digoxin and metoprolol. He is on Coumadin both for his atrial fibrillation with a CHADS2 Vasc score of 4 and for his mechanical mitral valve. 3. Valvular heart disease: Normally functioning mechanical mitral valve, moderate aortic regurgitation, tricuspid valve repair. No obvious valvular vegetation. He is now on heparin drip back up to therapeutic INR (coumadin to restart today) post urological surgery. 4. Ureteral stone/UTI/bacteremia: Followed by infectious disease and urology. On appropriate antibiotic therapy. Now with left ureteral stent 12/31/18 13:31 Subjective: Reports feeling well. No chest pain or dyspnea. Good appetite. Objective: Vital Signs (8 Hrs) Temp Pulse Resp BP Pulse Ox 12/31/18 11:07 37.3 C 120 H 19 121/71 H 95 12/31/18 07:16 36.4 C 133 H 20 133/86 H 94 Intake/Output (24 Hrs) 12/30/18 12/31/18 01/01/19 05:59 05:59 05:59 Intake Total 1628 1335 581 Output Total 1650 650 Balance -22 685 581 Intake: Oral (ml) 680 420 360 IV Intake (ml) 75 400 IV Infused (ml) 873 515 221 Ampicillin Sodium 2 gm In 300 220 Ns 100 ml @ 200 mls/hr IV Q4H [facility] Rx#:[id number] Heparin/Dextrose 500 ml @ 573 295 221 Per Protocol IV CONT [facility] Rx#:[id number] Output: Urine (ml) 1650 650 Bedside Commode 200 Catheter 550 Toilet 700 100 Urinal 750 Estimated Blood Loss (ml) 0 Other: Weight 74.389 kg 74.525 kg Number of Voids Toilet 1 Number of Stools Toilet 1 1 1 No acute distress. Sitting up in chair eating lunch. JVP less than 10. Irregular regular rhythm. [place] mechanical S1. No murmur Lungs clear bilaterally wheeze rhonchi rales No lower extremity edema Bullock contains grossly bloody urine Result Diagrams: 12/31/18 10:35 12/31/18 10:35 Telemetry: Atrial fibrillation with mostly controlled ventricular response. Occasional PVCs. ICD10 Worksheet Patient Problems: Problems Problem Status Onset Chronic Disease Mgmt/Transitional Care Acute Atrial fibrillation Acute Pneumonia Acute Elevated troponin Acute Aortic valve insufficiency Chronic S/P tricuspid valve repair Acute ~01/08/17 Acute blood loss anemia Acute Chronic anticoagulation Chronic S/P Maze operation for atrial fibrillation Acute ~01/08/17 S/P mitral valve replacement with metallic valve Acute ~01/08/17 Longstanding persistent atrial fibrillation Chronic Tricuspid regurgitation Chronic Mitral stenosis, supravalvar mitral ring Chronic
--- NOTE | 2018-12-31 13:49 | ASMTCMCOM ---
CM Note CM Note Notes: 12/31/2018 Case Management Note Discussed pt during rounds. Per RN afib persists. [facility] onsite today for pt teaching. Faxed updates from infectious disease to [facility]. Case Management d/c poc: [facility] RN with [facility] infusion. [facility] following outpatient. Case Management to follow. Date Signed: 12/31/2018 01:47 PM Electronically Signed By:Gina South RN
[2018-12-31] MEDS ORDERED: METOPROLOL TARTRATE 100 MG TAB PO ONE (18:00)
[2018-12-31] MEDS: ATORVASTATIN CALCIUM 20 MG TAB PO SCH (20:04)
[2019-01-01] MEDS: HEPARIN/DEXTROSE 500 ML IV SCH ×2 (00:08→16:21)
[2019-01-01] MEDS: ACETAMINOPHEN 325 MG TAB PO PRN (00:59)
[2019-01-01] MEDS: AMPICILLIN SODIUM 2 GM in NS 100 ML IV SCH ×6 (01:03→20:34)
[2019-01-01 06:03] LABS: PLATELET COUNT 266 10^3/uL (150-400)
[2019-01-01 06:31] LABS: INR 1.71 (0.83-1.16); PROTIME(PATIENT) 19.3 SEC (12.0-15.0)
[2019-01-01] MEDS: FUROSEMIDE 80 MG TAB PO SCH ×2 (08:34→16:08)
[2019-01-01] MEDS: ASPIRIN 81 MG CHEWABLE TAB PO SCH (08:34)
[2019-01-01] MEDS: SENNOSIDES/DOCUSATE SODIUM TAB PO SCH ×2 (08:35→20:34)
[2019-01-01] MEDS ORDERED: METOPROLOL SUCCINATE XR 100 MG TAB PO SCH (09:00)
[2019-01-01] MEDS: DIGOXIN 125 MCG TAB PO SCH (09:10)
--- NOTE | 2019-01-01 09:47 | PDIAF ---
- Diagnosis Diagnosis: Enterococcal bacteremia Code Status: Full Code - Medication Management News Production Assistant Antibiotics: penicillin 24 MU IV continuous infusion News Production Assistant Antibiotic Stop Date: 01/08/19 Discharge Medications: electronically signed and located in the Home Medication List. PICC Care - Routine: Yes - Orders Services needed: Home Care, Registered Nurse Home Care Face to Face: I certify that this patient was under my care and that I had the required [id number] encounter meeting the encounter requirements on the discharge day. My findings support the fact that the patient is homebound as defined in Home Care Face to Face Continued: CMS Chapter 7 Medicare Benefits Manual 30.1.1 , The condition of the patient is such that there exists a normal inability to leave home and consequently, leaving home would require a considerable and taxing effort. - Labs/Radiology CBC w/diff Date: 01/06/19 CMP Date: 01/06/19 Call or Fax Lab and Imaging Results to: Juan Francisco Campos MD [facility] at fax [phone] - Follow Up Care Current Providers and Referrals: Leatha Aleman MD [Primary Care Provider] - As per Instructions Tino Catalan MD [Medical Doctor] - Juan Francisco Campos MD [Medical Doctor] - 01/08/19 11:00 am
--- NOTE | 2019-01-01 10:16 | HOSPPROG ---
Hospitalist Progress Note Assessment/Plan: 83 yo M we mechanical MV, TV here w enterococcal bacteremia, nephrolithiasis, decrement in LVEF hematuria: perhaps a bit driller hand today continue mccoy until it begins to clear continue anticoag AHRF 2/2 acute HF -Oral Lasix -cont to monitor I&O's, daily wts -echo showed EF down to 10-15% which is significant drop from prior of 55% in 2017 -cardiology following on RA new sCHF: euvolemic repeat echo late this admit or as outpt to eval for recovery repeat limited echo today Sepsis 2/2 enterococcal bacteremia - (HR, RR) Source is urinary. CT showed non- obstructing 1.5 cm stone at left UPJ, no hydro. UCx also with enterococcus. ISABEL neg for vegetation -cont Ampicillin, ID following, appreciate assistance -Rpt BCx's neg Mechanical valve on chronic anticoagulation - elevated INR. No e/o vegetation on ISABEL on heparin gtt restart warfarin today A fib in RVR - HR better controlled with addition of dig -stopped dilt with low EF -cont toprol xl 200 rate > 100 this AM Nephrolithiasis - 1.5 cm L UPJ stone, non-obstructing, no hydro. This is likely cause of sepsis. retrieval unsuccessful, stent in place hopeful that w dilate distal ureteral stricture allowing for removal Elevated troponin - no chest pain, trending down, suspect strain 2/2 acute HF Diabetes - pt not on oral hypoglycemics, a1c 7.1 -defer SSI for now since bg's 100's Constipation, con bowel regimen. had a BM earlier Full code Dispo - cont inpatient Subjective: case d/w dr pugh. urine still quite dark Objective: Vital Signs Temp Pulse Resp BP Pulse Ox 36.4 C 125 H 20 134/99 H 95 01/01/19 07:26 01/01/19 09:10 01/01/19 07:26 01/01/19 07:26 01/01/19 07:26 Laboratory Results 01/01/19 05:10 01/01/19 05:10 12/31/18 01/01/19 01/02/19 05:59 05:59 05:59 Intake Total 1335 2590 Output Total 650 1370 Balance 685 1220 PT 19.3 SEC (12.0-15.0) H 05/15/19 05:10 INR 1.71 (0.83-1.16) H 01/01/19 05:10 - Physical Exam Constitutional: no apparent distress, appears nourished Eyes: PERRL, anicteric sclera Ears, Nose, Mouth, Throat: moist mucous membranes, hearing normal Cardiovascular: regular rate and rhythym, no murmur, rub, or gallop Respiratory: no respiratory distress, no rales or rhonchi Gastrointestinal: normoactive bowel sounds, soft, non-tender abdomen Genitourinary: no bladder fullness, mccoy in urethra, other (urine dark red) Skin: warm, normal color Musculoskeletal: full muscle strength Neurologic: AAOx3 ICD10 Worksheet Patient Problems: Problems Problem Status Onset Atrial fibrillation Acute Chronic Disease Mgmt/Transitional Care Acute Elevated troponin Acute Pneumonia Acute Acute blood loss anemia Acute S/P Maze operation for atrial fibrillation Acute ~01/08/17 S/P mitral valve replacement with metallic valve Acute ~01/08/17 S/P tricuspid valve repair Acute ~01/08/17 Aortic valve insufficiency Chronic Chronic anticoagulation Chronic Longstanding persistent atrial fibrillation Chronic Mitral stenosis, supravalvar mitral ring Chronic Tricuspid regurgitation Chronic
--- NOTE | 2019-01-01 10:29 | PCMIDPN ---
Assessment/Plan: # Enterococcal bacteremia, urinary source with underlying nephrolithiasis. Also underlying prosthetic mitral valve and prior tricuspid valve annuloplasty with negative ISABEL. Blood cx cleared. Unable to remove stone yesterday, stent placed --continue IV abx though 01/08, planning on home therapy, likely will switch to IV Penicillin for ease of administration at home, interagency completed and ID f /u set up --amoxicillin suppression after IV therapy # Elevated LFTs: improving #LUE swelling: better today, no DVT # Anticoagulation: close monitoring of INR while on antibiotic therapy Meds ampicillin 2gm IV q4h #8 Microbiology 12/23/18 21:40 Urine, de guzman-S Enterococcus Faecalis 12/23/18 15:10 Blood Cx 09/21 - de guzman-S Enterococcus Faecalis Subjective: had a rough night related to mccoy, poor sleep no diarrhea, itching or rash hoping to go home soon Objective: Vital Signs Temp Pulse Resp BP Pulse Ox 36.4 C 125 H 20 134/99 H 95 01/01/19 07:26 01/01/19 09:10 01/01/19 07:26 01/01/19 07:26 01/01/19 07:26 Laboratory Results 01/01/19 05:10 01/01/19 05:10 12/31/18 01/01/19 01/02/19 05:59 05:59 05:59 Intake Total 1335 2590 Output Total 650 1370 Balance 685 1220 AF General Appearance: alert, no apparent distress Respiratory: lungs clear, No accessory muscle use Cardiac/Chest: systolic murmur (with click), irregularly irregular Extremities: LUE swelling - better, No pedal edema Abdomen: non-tender, soft Male Genitalia: Mccoy- gross hematuria Skin: normal color, warm/dry, No rash Neuro/Psych: alert, normal mood/affect, oriented x 3 RUE PICC: no swelling, No drainage, No erythema ICD10 Worksheet Patient Problems: Problems Problem Status Onset Atrial fibrillation Acute Chronic Disease Mgmt/Transitional Care Acute Elevated troponin Acute Pneumonia Acute Acute blood loss anemia Acute S/P Maze operation for atrial fibrillation Acute ~01/08/17 S/P mitral valve replacement with metallic valve Acute ~01/08/17 S/P tricuspid valve repair Acute ~01/08/17 Aortic valve insufficiency Chronic Chronic anticoagulation Chronic Longstanding persistent atrial fibrillation Chronic Mitral stenosis, supravalvar mitral ring Chronic Tricuspid regurgitation Chronic
--- NOTE | 2019-01-01 11:01 | PDCARPN ---
Cardiology Progress Note Assessment/Plan: Assessment/plan: 83-year-old male with valvular disease. In 1999 he had mitral valve repair. In 2016 he had a mechanical mitral valve replacement and tricuspid valve ring with CM IV. Other history includes hypertension, diabetes , sleep apnea and atrial fibrillation. He was admitted on December 23 with dyspnea and fever. He was found to have enterococcal bacteremia from urinary source. He does have a left ureteropelvic junction stone with attempted removal 12/30. This was unsuccessful due to ureteral stricture, and therefore a left ureteral stent was placed by Dr. Catalan. During this admission he was found to have a significant decrement in his ejection fraction previously normal, now 15-20%. No obvious valvular vegetations seen on ISABEL. 1. New onset systolic heart failure: This may be related to rapid atrial fibrillation and sepsis. He does not have a history of significant coronary disease. Will transition to Toprol and consider NGOZI-inhibitor once stability of creatinine is documented. Continue Lasix. His AFib is still suboptimally controlled. Plan for ISABEL guided cardioversion tomorrow. ISABEL is necessary as he was briefly off his anticoagulation for his urological procedure. 2. Atrial fibrillation: Currently on high-dose Toprol and digoxin. Rate control is suboptimal. As above, plan for ISABEL guided cardioversion tomorrow. He is on Coumadin both for his atrial fibrillation with a CHADS2 Vasc score of 4 and for his mechanical mitral valve. 3. Valvular heart disease: Normally functioning mechanical mitral valve, moderate aortic regurgitation, tricuspid valve repair. No obvious valvular vegetation. He is now on heparin drip back up to therapeutic INR post urological surgery. 4. Ureteral stone/UTI/bacteremia: Followed by infectious disease, internal Medicine, and urology. On appropriate antibiotic therapy. Now with left ureteral stent 01/01/19 10:59 Subjective: He slept poorly. It sounds like they needed to irrigate his Bullock overnight. He denies chest pain or dyspnea. When he ambulates in the halls he is not feel lightheaded. He has not had palpitations. Objective: Vital Signs (8 Hrs) Temp Pulse Resp BP Pulse Ox 01/01/19 09:10 125 H 01/01/19 07:26 36.4 C 116 H 20 134/99 H 95 01/01/19 04:00 36.6 C 119 H 18 121/78 H 96 Intake/Output (24 Hrs) 12/31/18 01/01/19 01/02/19 05:59 05:59 05:59 Intake Total 1335 2590 Output Total 650 1370 Balance 685 1220 Intake: Oral (ml) 420 1100 IV Intake (ml) 400 IV Infused (ml) 515 1490 Ampicillin Sodium 2 gm In 220 630 Ns 100 ml @ 200 mls/hr IV Q4H [facility] Rx#:[id number] Heparin/Dextrose 500 ml @ 295 860 Per Protocol IV CONT [facility] Rx#:[id number] Output: Urine (ml) 650 1320 Catheter 550 1320 Toilet 100 Estimated Blood Loss (ml) 0 50 Other: Weight 74.525 kg 76.6 kg Number of Voids Catheter 1 Number of Stools Bedside Commode 2 Toilet 1 1 No acute distress. JVP is 12-14 cm of water. Irregularly irregular tachycardic rhythm. [place] mechanical S1. Lungs clear bilaterally wheeze rhonchi rales Abdomen is soft and nontender Trace bilateral lower extremity edema Bullock contains bloody urine Result Diagrams: 01/01/19 05:10 01/01/19 05:10 Telemetry: Atrial fibrillation with periods of rapid ventricular response ICD10 Worksheet Patient Problems: Problems Problem Status Onset Chronic Disease Mgmt/Transitional Care Acute Atrial fibrillation Acute Pneumonia Acute Elevated troponin Acute Aortic valve insufficiency Chronic S/P tricuspid valve repair Acute ~01/08/17 Acute blood loss anemia Acute Chronic anticoagulation Chronic S/P Maze operation for atrial fibrillation Acute ~01/08/17 S/P mitral valve replacement with metallic valve Acute ~01/08/17 Longstanding persistent atrial fibrillation Chronic Tricuspid regurgitation Chronic Mitral stenosis, supravalvar mitral ring Chronic
[2019-01-01] MEDS: POTASSIUM CL 20 MEQ TAB PO SCH (12:02)
--- NOTE | 2019-01-01 14:46 | ECHO ---
[email or web address] [address] [address] Main: [phone] Echocardiography Examination Transthoracic Name: GISELA WILSON MR#: [id number] Study Date: 01/01/2019 Study Time: 11:41 AM Date of : 1935 Age: 83 year(s) Height: 175.3 cm (69 in.) Weight: 75.3 kg (166 lb.) BSA: 1.91 m2 Gender: Male Examination: Limited Echo Contrast: Image Quality: Adequate Rhythm: Heart Rate: BP: / Indication: reassess atrial fibrillation Procedure Staff Referring Physician: Boiler Water Tester: Elizabeth Barker [facility] Reading Physician: Kimberly Sena MD Requesting Provider: Ordering Physician: Masood Peng Indication: reassess atrial fibrillation Measurements Chambers AV/MV Label Value Normal Value Label Value Normal Value LVDd, 2D 4.5 cm (4.2cm - 5.9cm) MV VTI 35 cm LVDs, 2D 3.8 cm (2.1cm - 4cm) MV PGmax 13 mmHg IVSd, 2D 1.5 cm (0.6cm - 1.1cm) MV PGmean 6 mmHg LVPWd, 2D 1.2 cm (0.6cm - 1cm) MV PHT 0.09 s LVEF, BP 24 % (55% - 70%) MVA PHT 2.6 cm2 LVEF, 2D 34 % (54% - 74%) MV PHT 85 ms Conclusions 1. Limited echo to reassess ejection fraction. 2. The left ventricle is normal in size. Severely reduced systolic function with an ejection fraction of 24%. Severe global hypokinesis and flattened interventricular septum consistent with RV volume and pressure overload. 3. Well-seated mechanical mitral valve prosthesis the mean transmitral gradient of 6 mm of mercury. No significant mitral regurgitation. 4. Moderate aortic regurgitation. 5. Compared with ISABEL dated 12/25/2018 overall similar findings. No appreciable improvement in left ventricular systolic function. Findings Patient: GISELA WILSON Study Date: 01/01/2019 Page 1 of 2 11:41 AM Left Ventricle: Left ventricle is normal in size. Severely reduced systolic left ventricular function. EF evaluated by EF (biplane Tirado's). The ejection fraction, measured by Simpsons method, is 24 %. EF range is estimated at 20 % - 25 %. There is moderate concentric left ventricular hypertrophy. Global hypokinesis. Flattened IVS consistent with RV volume and/or pressure overload. Mitral Valve: Well-seated mechanical mitral valve prosthesis . Mean transmitral gradient is 6 mmHg. No significant mitral regurgitation. . Aortic Valve: Moderate aortic regurgitation is present. Exam Details Procedure Ordered: Limited Echo Procedure Status: Routine study Image Quality: Adequate Facility Location: Cardiac Echo 1 (No Signature Object) Patient: GISELA WILSON Study Date: 01/01/2019 Page 2 of 2 11:41 AM [id number]
[2019-01-01] MEDS ORDERED: WARFARIN SODIUM 2.5 MG TAB PO ONE (16:00)
--- NOTE | 2019-01-01 16:12 | SOAPPROG ---
TONE Progress Note Assessment/Plan: Assessment: Left UPJ stone Enterococcus UTI- resolving stent placement 12/30 gross hematuria Plan: has gross hematuria- would continue mccoy catheter until bleeding is better controlled irrigate catheter as needed to keep open May consider three way mccoy with continuous bladder irrigation if has issues with clots 12/27/18 12:33 12/28/18 09:55 12/29/18 08:07 12/31/18 06:37 12/31/18 06:40 01/01/19 16:11 Subjective: Feels well now says that last night there were issues with the mccoy needing irrigation flowing well now Objective: abd soft nontender mccoy in place with red urine Vital Signs Temp Pulse Resp BP Pulse Ox 36.4 C 116 H 20 97/61 L 90 L 01/01/19 11:38 01/01/19 11:38 01/01/19 11:38 01/01/19 11:38 01/01/19 11:38 Laboratory Results 01/01/19 05:10 01/01/19 05:10 12/31/18 01/01/19 01/02/19 05:59 05:59 05:59 Intake Total 1335 2590 Output Total 650 1370 Balance 685 1220 PT 19.3 SEC (12.0-15.0) H 01/01/19 05:10 INR 1.71 (0.83-1.16) H 01/01/19 05:10 ICD10 Worksheet Patient Problems: Problems Problem Status Onset Atrial fibrillation Acute Chronic Disease Mgmt/Transitional Care Acute Elevated troponin Acute Pneumonia Acute Acute blood loss anemia Acute S/P Maze operation for atrial fibrillation Acute ~01/08/17 S/P mitral valve replacement with metallic valve Acute ~01/08/17 S/P tricuspid valve repair Acute ~01/08/17 Aortic valve insufficiency Chronic Chronic anticoagulation Chronic Longstanding persistent atrial fibrillation Chronic Mitral stenosis, supravalvar mitral ring Chronic Tricuspid regurgitation Chronic
[2019-01-01] MEDS: ATORVASTATIN CALCIUM 20 MG TAB PO SCH (20:34)
[2019-01-02] MEDS: AMPICILLIN SODIUM 2 GM in NS 100 ML IV SCH ×6 (00:49→20:34)
[2019-01-02 05:33] LABS: PLATELET COUNT 251 10^3/uL (150-400)
[2019-01-02 05:41] LABS: INR 1.79 (0.83-1.16)
[2019-01-02] MEDS ORDERED: NS 1,000 ML IV ONE (06:00)
[2019-01-02] MEDS ORDERED: ATROPINE SULFATE 1 MG/10 ML SYR IVP ONE (06:00)
[2019-01-02] MEDS: ACETAMINOPHEN 325 MG TAB PO PRN (09:38)
[2019-01-02] MEDS: POTASSIUM CL 20 MEQ TAB PO SCH (09:42)
[2019-01-02] MEDS: ASPIRIN 81 MG CHEWABLE TAB PO SCH (09:43)
[2019-01-02] MEDS: DIGOXIN 125 MCG TAB PO SCH (09:44)
[2019-01-02] MEDS: FUROSEMIDE 80 MG TAB PO SCH (09:44)
[2019-01-02] MEDS: HEPARIN/DEXTROSE 500 ML IV SCH (09:45)
[2019-01-02] MEDS: SENNOSIDES/DOCUSATE SODIUM TAB PO SCH ×2 (09:48→20:34)
--- NOTE | 2019-01-02 10:40 | PDCARPN ---
Cardiology Progress Note Assessment/Plan: Assessment/plan: 83-year-old male with valvular disease. In 1999 he had mitral valve repair. In 2017 he had a mechanical mitral valve replacement and tricuspid valve ring with CM IV. Other history includes hypertension, diabetes , sleep apnea and atrial fibrillation. He was admitted on December 23 with dyspnea and fever. He was found to have enterococcal bacteremia from urinary source. He does have a left ureteropelvic junction stone with attempted removal 12/30. This was unsuccessful due to ureteral stricture, and therefore a left ureteral stent was placed by Dr. Catalan. During this admission he was found to have a significant decrement in his ejection fraction previously normal, now 15-20%. No obvious valvular vegetations seen on ISABEL. 1. New onset systolic heart failure: This may be related to rapid atrial fibrillation and sepsis. The latter is now resolved. He does not have a history of significant coronary disease. Will transition to Toprol and consider NGOZI-inhibitor once stability of creatinine is documented. IV Lasix today. His AFib is still suboptimally controlled. Plan for ISABEL guided cardioversion today. ISABEL is necessary as he was briefly off his anticoagulation for his urological procedure. Another consideration for his decrement in EF would be change in LV anatomy related to his mechanical mitral valve replacement. 2. Atrial fibrillation: Currently on high-dose Toprol and digoxin. Rate control is suboptimal. As above, plan for ISABEL guided cardioversion tomorrow. He is on Coumadin both for his atrial fibrillation with a CHADS2 Vasc score of 4 and for his mechanical mitral valve. On heparin drip back up to therapeutic INR. His INR target is 2.5-3.5. 3. Valvular heart disease: Normally functioning mechanical mitral valve, moderate aortic regurgitation, tricuspid valve repair. No obvious valvular vegetation. He is now on heparin drip back up to therapeutic INR post urological surgery. 4. Ureteral stone/UTI/bacteremia: Followed by infectious disease, internal Medicine, and urology. On appropriate antibiotic therapy. Now with left ureteral stent. Ongoing hematuria. Bullock in place. 5. Anemia: May be related to bleeding. 01/02/19 10:38 Subjective: Went for a walk this morning and felt quite dyspneic. He feels overall weak. This morning he developed pain in his mid back. Reviewed/Discussed With: family, multidisciplinary team Time Spent with Patient: greater than 25 minutes Time Spent with Patient: Greater than 25 minutes spent on this patients care, greater than 50% of time spent counseling, educating, and coordinating care regarding the above mentioned plan. Objective: Vital Signs (8 Hrs) Temp Pulse Resp BP Pulse Ox 01/02/19 09:44 117 H 01/02/19 07:54 36.9 C 112 H 24 H 121/81 H 93 01/02/19 07:49 113 H 01/02/19 04:00 36.9 C 111 H 20 139/94 H 93 Intake/Output (24 Hrs) 01/01/19 01/02/19 01/03/19 05:59 05:59 05:59 Intake Total 2590 1127.8 Output Total 1370 1600 Balance 1220 -472.2 Intake: Oral (ml) 1100 400 IV Infused (ml) 1490 727.8 Ampicillin Sodium 2 gm In 630 375 Ns 100 ml @ 200 mls/hr IV Q4H [facility] Rx#:[id number] Heparin/Dextrose 500 ml @ 860 352.8 Per Protocol IV CONT [facility] Rx#:[id number] Output: Urine (ml) 1320 1600 Catheter 1320 1600 Estimated Blood Loss (ml) 50 Other: Weight 76.6 kg 77.9 kg Number of Voids Catheter 1 Number of Stools Bedside Commode 2 Toilet 1 1 No acute distress. JVP 12 cm water. Irregularly irregular tachycardic rhythm. [place] mechanical S1. No murmur. No S3 Lungs clear bilaterally Trace bilateral lower extremity edema. Stigmata of chronic venous insufficiency Bullock with gross blood Result Diagrams: 01/02/19 05:15 01/02/19 05:15 Telemetry: AF with periods of RVR. PVCs. Possible PAT ICD10 Worksheet Patient Problems: Problems Problem Status Onset Chronic Disease Mgmt/Transitional Care Acute Atrial fibrillation Acute Pneumonia Acute Elevated troponin Acute Aortic valve insufficiency Chronic S/P tricuspid valve repair Acute ~01/08/17 Acute blood loss anemia Acute Chronic anticoagulation Chronic S/P Maze operation for atrial fibrillation Acute ~01/08/17 S/P mitral valve replacement with metallic valve Acute ~01/08/17 Longstanding persistent atrial fibrillation Chronic Tricuspid regurgitation Chronic Mitral stenosis, supravalvar mitral ring Chronic
--- NOTE | 2019-01-02 11:20 | HOSPPROG ---
Hospitalist Progress Note Assessment/Plan: 83 yo M we mechanical MV, TV here w enterococcal bacteremia, nephrolithiasis, decrement in LVEF hematuria: perhaps a bit urban planner today continue mccoy until it begins to clear continue anticoag AHRF 2/2 acute HF -IV Lasix -cont to monitor I&O's, daily wts -echo showed EF down to 10-15% which is significant drop from prior of 55% in 2017 -cardiology following on RA new sCHF: euvolemic repeat echo showed LVEF 24% continue diuretics Sepsis 2/2 enterococcal bacteremia - (HR, RR) Source is urinary. CT showed non- obstructing 1.5 cm stone at left UPJ, no hydro. UCx also with enterococcus. ISABEL neg for vegetation -cont Ampicillin, ID following, appreciate assistance -Rpt BCx's neg Mechanical valve on chronic anticoagulation - elevated INR. No e/o vegetation on ISABEL on heparin gtt restarted warfarin A fib in RVR - HR better controlled with addition of dig -stopped dilt with low EF -cont toprol xl 200 rate > 100 this AM cardioversion today Nephrolithiasis - 1.5 cm L UPJ stone, non-obstructing, no hydro. This is likely cause of sepsis. retrieval unsuccessful, stent in place hopeful that w dilate distal ureteral stricture allowing for removal Elevated troponin - no chest pain, trending down, suspect strain 2/2 acute HF Diabetes - pt not on oral hypoglycemics, a1c 7.1 -defer SSI for now since bg's 100's Constipation, con bowel regimen. had a BM earlier Full code Dispo - cont inpatient Subjective: case d/w dr pugh. renal function stable. urine urban planner Objective: Vital Signs Temp Pulse Resp BP Pulse Ox 36.9 C 117 H 24 H 121/81 H 93 01/02/19 07:54 01/02/19 09:44 01/02/19 07:54 01/02/19 07:54 01/02/19 07:54 Laboratory Results 01/02/19 05:15 01/02/19 05:15 01/01/19 01/02/19 01/03/19 05:59 05:59 05:59 Intake Total 2590 1127.8 Output Total 1370 1600 Balance 1220 -472.2 PT 20.0 SEC (12.0-15.0) H 05/16/19 05:15 INR 1.79 (0.83-1.16) H 01/02/19 05:15 - Physical Exam Constitutional: no apparent distress, appears nourished Eyes: PERRL, anicteric sclera Ears, Nose, Mouth, Throat: moist mucous membranes, hearing normal Cardiovascular: no murmur, rub, or gallop, irregularly irregular Respiratory: no respiratory distress, no rales or rhonchi Gastrointestinal: normoactive bowel sounds, soft, non-tender abdomen Genitourinary: no bladder fullness, mccoy in urethra, other (briught red opaque urine in bladder. this is an improvement) Skin: warm, normal color Musculoskeletal: full muscle strength, other (LUE w edema) Neurologic: AAOx3 ICD10 Worksheet Patient Problems: Problems Problem Status Onset Atrial fibrillation Acute Chronic Disease Mgmt/Transitional Care Acute Elevated troponin Acute Pneumonia Acute Acute blood loss anemia Acute S/P Maze operation for atrial fibrillation Acute ~01/08/17 S/P mitral valve replacement with metallic valve Acute ~01/08/17 S/P tricuspid valve repair Acute ~01/08/17 Aortic valve insufficiency Chronic Chronic anticoagulation Chronic Longstanding persistent atrial fibrillation Chronic Mitral stenosis, supravalvar mitral ring Chronic Tricuspid regurgitation Chronic
[2019-01-02] MEDS: FUROSEMIDE 40 MG/4 ML VIAL IVP SCH ×2 (11:25→16:54)
--- NOTE | 2019-01-02 12:18 | PCMIDPN ---
Assessment/Plan: # Enterococcal bacteremia, urinary source with underlying nephrolithiasis. Also underlying prosthetic mitral valve and prior tricuspid valve annuloplasty with negative SIABEL. Blood cx cleared. Unable to remove stone & stent placed --continue IV abx though 01/08, planning switch to IV Penicillin for ease of administration at home, interagency completed and ID f/u set up --amoxicillin suppression after IV therapy --ID to follow peripherally, call if needed. Patients 3 daughters and present today and all questions answered # Elevated LFTs: improving # Anticoagulation: close monitoring of INR while on antibiotic therapy Meds ampicillin 2gm IV q4h #9 Microbiology 12/23/18 Urine, de guzman-S Enterococcus Faecalis 12/23/18 Blood Cx / - de guzman-S Enterococcus Faecalis 12/25/18 Blood cx (2) neg Subjective: still trouble sleeping bothered by mccoy patient about to go to cardioversion Objective: Vital Signs Temp Pulse Resp BP Pulse Ox 36.9 C 117 H 24 H 121/81 H 93 01/02/19 07:54 01/02/19 09:44 01/02/19 07:54 01/02/19 07:54 01/02/19 07:54 Laboratory Results 01/02/19 05:15 01/02/19 05:15 01/01/19 01/02/19 01/03/19 05:59 05:59 05:59 Intake Total 2590 1127.8 Output Total 1370 1600 Balance 1220 -472.2 AF General Appearance: alert, no apparent distress Respiratory: No accessory muscle use Extremities: LUE swelling almost resolved Male Genitalia: Mccoy- gross hematuria, seems a bit better Skin: normal color, warm/dry, No rash Neuro/Psych: alert, normal mood/affect, oriented x 3 RUE PICC: no swelling, No drainage, No erythema - Time Spent With Patient Time Spent with Patient: greater than 25 minutes Time Spent with Patient: Greater than 25 minutes spent on this patients care, greater than 50% of time spent counseling, educating, and coordinating care regarding the above mentioned plan. ICD10 Worksheet Patient Problems: Problems Problem Status Onset Atrial fibrillation Acute Chronic Disease Mgmt/Transitional Care Acute Elevated troponin Acute Pneumonia Acute Acute blood loss anemia Acute S/P Maze operation for atrial fibrillation Acute ~01/08/17 S/P mitral valve replacement with metallic valve Acute ~01/08/17 S/P tricuspid valve repair Acute ~01/08/17 Aortic valve insufficiency Chronic Chronic anticoagulation Chronic Longstanding persistent atrial fibrillation Chronic Mitral stenosis, supravalvar mitral ring Chronic Tricuspid regurgitation Chronic
--- NOTE | 2019-01-02 12:23 | ASMTCMCOM ---
CM Note CM Note Notes: 01/02/2019 Case Management Note Discussed pt during rounds today. Cardioversion planned for 1330 today. Faxed updates to [facility] Driscoll and [facility]. Case Management d/c poc: home with [facility] and [facility] for iv antibiotic needs. [facility] to follow outpatient. Case Management to follow. Date Signed: 01/02/2019 12:22 PM Electronically Signed By:Gina South RN
--- NOTE | 2019-01-02 13:27 | PDANEPAE ---
ANE History of Present Illness a fib ANE Past Medical History - Cardiovascular History Hx Hypertension: Yes Hx Arrhythmias: Yes Hx Chest Pain: Yes Hx Coronary Artery / Peripheral Vascular Disease: Yes Hx CHF / Valvular Disease: Yes Hx Palpitations: Yes Cardiovascular History Comment: htn. chf-EF 15-20%. afib with cardioversion x2. aortic valve regurgitation. mitral stenosis. tricupsid regurgitation. lower extremity edema. syncope. hx of chest pains and palpitations - Pulmonary History Hx COPD: Yes Hx Asthma/Reactive Airway Disease: No Hx Recent Upper Respiratory Infection: No Hx Oxygen in Use at Home: No Hx Sleep Apnea: No Sleep Apnea Screening Result - Last Documented: Positive Pulmonary History Comment: gaye positive uses cpap- instructed pt to bring to hospital - Neurologic History Hx Cerebrovascular Accident: No Hx Seizures: No Hx Dementia: No - Endocrine History Hx Diabetes: No Hypothyroid: No Hyperthyroid: No Obesity: no Endocrine History Comment: parathyroid tumor removal 2006 - Renal History Hx Renal Disorders: Yes Renal History Comment: hx of kidney stones - Liver History Hx Hepatic Disorders: No - Neurological & Psychiatric Hx Hx Neurological and Psychiatric Disorders: No - Cancer History Hx Cancer: No - Congenital Disorder History Hx Congenital Disorders: No - GI History GERD: mild Hx Gastrointestinal Disorders: Yes Gastrointestinal History Comment: reflux - Other Health History Other Health History: wears glasses and bilateral hearing aides. 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 appy. cataractts. kidney stone extraction. MVR/TVR 1999. parathyroid tumor removal 2006 ANE Review of Systems Review of systems is: negative Review of Systems: - Exercise capacity Exercise capacity: <4 METS ANE Patient History - Allergies Allergies/Adverse Reactions: No Known Allergies Allergy (Verified 12/07/16 11:29) - Home Medications Home medications: home medication list seen and reviewed Home Medications: Atorvastatin Calcium [Lipitor 20 mg (*)] 20 mg PO HS 12/27/16 [Last Taken ] Herbals/Supplements -Info Only 1 ea PO DAILY 12/27/16 [Last Taken Unknown] Multivitamins [Multivitamin (*)] 1 each PO DAILY 12/27/16 [Last Taken 12/23/18] Metoprolol Tartrate [Lopressor 50 mg (*)] 50 mg PO BID 12/23/18 [Last Taken 02/05] Psyllium Husk/Aspartame [Metamucil Fiber Singles Packet] 3.4 gm PO DAILY@12 02/05 [Last Taken Unknown] Warfarin Sodium [Coumadin 5MG (*)] 5 mg PO MOFR 12/23/18 [Last Taken 12/23/18] Warfarin Sodium [Coumadin 5MG (*)] 7.5 mg PO SUTUWETHSA 12/23/18 [Last Taken 01/05] - NPO status NPO Status: no food or drink >8 hours NPO Since - Liquids (Date): 12/29/18 NPO Since - Liquids (Time): 23:59 NPO Since - Solids (Date): 12/30/18 NPO Since - Solids (Time): 23:59 - Anes Hx Anes Hx: no prior problems - Smoking Hx Smoking Status: Former smoker - Alcohol Use Alcohol Use: None - Family Anes Hx Family Anes Hx: none Family Hx Anesthesia Complications: none ANE Labs/Vital Signs - Labs Result Diagrams: 01/02/19 05:15 01/02/19 05:15 - Vital Signs Blood Pressure: 108/71 Heart Rate: 114 Respiratory Rate: 21 O2 Sat (%): 96 Height: 175.26 cm Weight: 77.9 kg ANE Physical Exam - Airway Neck exam: FROM Mallampati Score: Class 2 Mouth exam: normal dental/mouth exam - Pulmonary Pulmonary: no respiratory distress, clear to auscultation - Cardiovascular Cardiovascular: irregularly irregular, JVD - ASA Status ASA Status: IV ANE Anesthesia Plan Anesthesia Plan: GA with mask Total IV Anesthesia: Yes
[2019-01-02] MEDS ORDERED: ETOMIDATE 40 MG/20 ML INJ ONE (13:48)
[2019-01-02] MEDS ORDERED: PROPOFOL 200 MG/20 ML VIAL ONE (14:01)
[2019-01-02] MEDS ORDERED: ATROPINE SULFATE 1 MG/10 ML SYR ONE (14:01)
--- NOTE | 2019-01-02 14:27 | PDHPUP ---
History & Physical Update H&P update statement: This history and physical update is based on an assessment of the patient which was completed after admission or registration (within 24 hours), but prior to the surgery/procedure. H&P update: H&P reviewed & patient examined, no change in patient's condition since H&P completed
--- NOTE | 2019-01-02 14:59 | PDTEE1 ---
ISABEL Cardioversion Procedure Procedure: electrical cardioversion, transesophageal echo Indications: atrial fibrillation Consent: signed and in chart Anticoagulation: eliquis Procedural Details: Sedation provided by the anesthesia service. Pads were placed in anterior- posterior position. ISABEL probe was advanced and standard images obtained. There is no evidence of left atrial or left atrial appendage thrombus. Synchronized cardioversion attempt #1: 200J Synchronized cardioversion attempt #2: 200J Synchronized cardioversion attempt #3: other (250 joules) Results: other (Atrial fibrillation) Conclusions: other (Patient initially had likely atrial tachycardia then atrial fibrillation. Heart rate improved. Sinus rhythm was not obtained.) Patient Problems: Problems Problem Status Onset Chronic Disease Mgmt/Transitional Care Acute Atrial fibrillation Acute Pneumonia Acute Elevated troponin Acute Aortic valve insufficiency Chronic S/P tricuspid valve repair Acute ~01/08/17 Acute blood loss anemia Acute Chronic anticoagulation Chronic S/P Maze operation for atrial fibrillation Acute ~01/08/17 S/P mitral valve replacement with metallic valve Acute ~01/08/17 Longstanding persistent atrial fibrillation Chronic Tricuspid regurgitation Chronic Mitral stenosis, supravalvar mitral ring Chronic
[2019-01-02] MEDS ORDERED: NALOXONE HCL 0.4 MG/ML INJ IVP PRN (15:01)
--- NOTE | 2019-01-02 15:02 | POSTANESTH ---
Post Anesthetic Evaluation Cardiovascular Status: Normal, Stable Respiratory Status: Normal, Stable Level of Consciousness/Mental Status: Mildly Sleepy, Arousable, Moderately Sleepy Pain Control: Adequate, Prn Tx Ordered Nausea/Vomiting Control: Adequate, Prn Tx Ordered Complications Possibly Related to Anesthesia: None Noted
[2019-01-02] MEDS ORDERED: WARFARIN SODIUM 5 MG TAB PO ONE (16:00)
--- NOTE | 2019-01-02 16:21 | ECHO ---
[email or web address] [address] Main: [phone] Echocardiography Examination Transesophageal Name: GISELA WILSON MR#: [id number] Study Date: 01/02/2019 Study Time: 01:19 PM Date of : 1935 Age: 83 year(s) Height: ( ) Weight: ( ) BSA: Gender: Male Examination: ISABEL Contrast: Image Quality: Rhythm: Heart Rate: BP: / Indication: Pre Cardioversion Procedure Staff Referring Physician: Merchandise Shopper: Reading Physician: Kimberly Sena MD Requesting Provider: Ordering Physician: Kimberly Sena MD Indication: Pre Cardioversion Conclusions 1. The left ventricular systolic function is severely depressed at 25%. There is global hypokinesis and flattening of the interventricular septum consistent with right ventricular pressure and volume overload. 2. The right ventricle is mildly dilated with moderately reduced systolic function. 3. There is no thrombus in left atrium. The left atrial appendage is oversewn. 4. Mechanical mitral valve prosthesis is well seated. Expected physiologic regurgitation. No vegetation. 5. [id number] aortic regurgitation Findings Left Ventricle: The EF is visually estimated to be 25 %. Global hypokinesis. Right Ventricle: Mildly dilated right ventricle. Right ventricular systolic function is moderately reduced. Flattened interventricular septum consistent with right ventricular pressure and/or volume overload Left Atrium: Spontaneous contrast in the left atrium. Left Atrium Appendage: The left atrial appendage appears sewn over. Mitral Valve: A mechanical prosthesis is present in the mitral valve. The mitral valve prosthesis exhibits normal function. Aortic Valve: Mild to moderate aortic regurgitation is present. Patient: GISELA WILSON Study Date: 01/02/2019 Page 1 of 2 01:19 PM Exam Details Procedure Ordered: ISABEL (No Signature Object) Patient: GISELA WILSON Study Date: 01/02/2019 Page 2 of 2 01:19 PM [id number]
[2019-01-02] MEDS: METOPROLOL SUCCINATE XR 100 MG TAB PO SCH (17:04)
[2019-01-02] MEDS: ATORVASTATIN CALCIUM 20 MG TAB PO SCH (20:35)
[2019-01-03] MEDS: HEPARIN/DEXTROSE 500 ML IV SCH ×2 (00:33→18:17)
[2019-01-03] MEDS: AMPICILLIN SODIUM 2 GM in NS 100 ML IV SCH ×6 (00:36→20:06)
[2019-01-03 06:28] LABS: INR 1.7 (0.83-1.16); PROTIME(PATIENT) 19.2 SEC (12.0-15.0)
[2019-01-03] MEDS: ASPIRIN 81 MG CHEWABLE TAB PO SCH (08:58)
[2019-01-03] MEDS: METOPROLOL SUCCINATE XR 100 MG TAB PO SCH (08:58)
[2019-01-03] MEDS: SENNOSIDES/DOCUSATE SODIUM TAB PO SCH ×2 (08:58→20:10)
[2019-01-03] MEDS: FUROSEMIDE 40 MG/4 ML VIAL IVP SCH ×2 (08:58→14:57)
[2019-01-03] MEDS: POTASSIUM CL 20 MEQ TAB PO SCH (08:58)
[2019-01-03] MEDS: DIGOXIN 125 MCG TAB PO SCH (08:58)
--- NOTE | 2019-01-03 09:23 | HOSPPROG ---
Hospitalist Progress Note Assessment/Plan: 83 yo M we mechanical MV, TV here w enterococcal bacteremia, nephrolithiasis, decrement in LVEF hematuria: still red continue mccoy until it begins to clear continue anticoag NSVT: no CP low ef noted check lytes, mag, dig level d/w cardiology AHRF 2/2 acute HF -IV Lasix -cont to monitor I&O's, daily wts -echo showed EF down to 10-15% which is significant drop from prior of 55% in 2017 repeat limited echo 01/01 ef 24% on RA new sCHF: euvolemic repeat echo showed LVEF 24% continue diuretics Sepsis 2/2 enterococcal bacteremia - (HR, RR) Source is urinary. CT showed non- obstructing 1.5 cm stone at left UPJ, no hydro. UCx also with enterococcus. ISABEL neg for vegetation -cont Ampicillin, ID following, appreciate assistance -Rpt BCx's neg Mechanical valve on chronic anticoagulation - elevated INR. No e/o vegetation on ISABEL on heparin gtt restarted warfarin A fib in RVR - HR better controlled with addition of dig -stopped dilt with low EF -cont toprol xl 200 rate > 100 this AM cardioversion today Nephrolithiasis - 1.5 cm L UPJ stone, non-obstructing, no hydro. This is likely cause of sepsis. retrieval unsuccessful, stent in place hopeful that w dilate distal ureteral stricture allowing for removal Elevated troponin - no chest pain, trending down, suspect strain 2/2 acute HF Diabetes - pt not on oral hypoglycemics, a1c 7.1 -defer SSI for now since bg's 100's Constipation, con bowel regimen. had a BM earlier Full code Dispo - cont inpatient Subjective: unsuccessful cardioversion overnight. 6 beats NSVT overnight. urine still pretty red. case d/w dr pugh Objective: Vital Signs Temp Pulse Resp BP Pulse Ox 36.4 C 97 20 142/81 H 98 01/03/19 07:16 01/03/19 08:58 01/03/19 07:16 01/03/19 08:58 01/03/19 07:16 Laboratory Results 01/02/19 05:15 01/02/19 05:15 01/02/19 01/03/19 01/04/19 05:59 05:59 05:59 Intake Total 1127.8 1090 Output Total 1600 2250 Balance -472.2 -1160 PT 19.2 SEC (12.0-15.0) H 01/03/19 06:00 INR 1.70 (0.83-1.16) H 01/03/19 06:00 - Physical Exam Constitutional: no apparent distress, appears nourished Eyes: PERRL, anicteric sclera Ears, Nose, Mouth, Throat: moist mucous membranes, hearing normal Cardiovascular: systolic murmur, irregularly irregular Respiratory: no respiratory distress, no rales or rhonchi Gastrointestinal: normoactive bowel sounds, soft, non-tender abdomen Genitourinary: no bladder fullness, mccoy in urethra Skin: warm, normal color Musculoskeletal: full muscle strength, no muscle tenderness Neurologic: AAOx3 ICD10 Worksheet Patient Problems: Problems Problem Status Onset Atrial fibrillation Acute Chronic Disease Mgmt/Transitional Care Acute Elevated troponin Acute Pneumonia Acute Acute blood loss anemia Acute S/P Maze operation for atrial fibrillation Acute ~01/08/17 S/P mitral valve replacement with metallic valve Acute ~01/08/17 S/P tricuspid valve repair Acute ~01/08/17 Aortic valve insufficiency Chronic Chronic anticoagulation Chronic Longstanding persistent atrial fibrillation Chronic Mitral stenosis, supravalvar mitral ring Chronic Tricuspid regurgitation Chronic
[2019-01-03] MEDS ORDERED: PROTOCOL MAGNESIUM 1 DOSE IV PRN (12:21)
[2019-01-03] MEDS ORDERED: PROTOCOL POTASSIUM 1 DOSE MISC PRN (12:21)
--- NOTE | 2019-01-03 13:37 | PDCARPN ---
Cardiology Progress Note Assessment/Plan: Assessment/plan: 83-year-old male with valvular disease. In 1999 he had mitral valve repair. In 2016 he had a mechanical mitral valve replacement and tricuspid valve ring with CM IV. Other history includes hypertension, diabetes , sleep apnea and atrial fibrillation. He was admitted on December 23 with dyspnea and fever. He was found to have enterococcal bacteremia from urinary source. He does have a left ureteropelvic junction stone with attempted removal 12/30. This was unsuccessful due to ureteral stricture, and therefore a left ureteral stent was placed by Dr. Catalan. During this admission he was found to have a significant decrement in his ejection fraction previously normal, now 15-20%. No obvious valvular vegetations seen on ISABEL. 1. New onset systolic heart failure: This may be related to rapid atrial fibrillation and sepsis. The latter is now resolved. He does not have a history of significant coronary disease. Will continue Toprol and consider NGOZI- inhibitor once stability of creatinine is documented. Continue IV Lasix. s/p ISABEL with attempted cardioversion 01/02. This was not successful. Likely was in AT and post DCCV rate controlled AF. Another consideration for his decrement in EF would be change in LV anatomy related to his mechanical mitral valve replacement. May ultimately need AVN ablation and biV pacing. 2. Atrial fibrillation: Currently on high-dose Toprol and digoxin. Rate control improved (may have been AT now AF). He is on Coumadin both for his atrial fibrillation with a CHADS2 Vasc score of 4 and for his mechanical mitral valve. On heparin drip back up to therapeutic INR. His INR target is 2.5-3.5. 3. VT: This is concerning in the setting of low EF. He does not have significant coronary disease. Electrolyte repletion. Consider amiodarone. Will d/w Dr. Zamarripa. 4. Valvular heart disease: Normally functioning mechanical mitral valve, moderate aortic regurgitation, tricuspid valve repair. No obvious valvular vegetation. He is now on heparin drip back up to therapeutic INR post urological surgery. 5. Ureteral stone/UTI/bacteremia: Followed by infectious disease, internal Medicine, and urology. On appropriate antibiotic therapy. Now with left ureteral stent. Ongoing hematuria. Bullock in place. 6. Anemia: May be related to bleeding. 01/03/19 13:59 Subjective: He feels better today. Breathing is better. No abdominal pain. No chest pain. Denies palpitations. Reviewed/Discussed With: family, hospitalist Objective: Vital Signs (8 Hrs) Temp Pulse Resp BP Pulse Ox 01/03/19 11:01 36.5 C 82 20 117/59 L 98 01/03/19 08:58 97 142/81 H 01/03/19 07:16 36.4 C 92 20 142/81 H 98 Intake/Output (24 Hrs) 01/02/19 01/03/19 01/04/19 05:59 05:59 05:59 Intake Total 1127.8 1090 100 Output Total 1600 2250 Balance -472.2 -1160 100 Intake: Oral (ml) 400 940 IV Intake (ml) 150 IV Infused (ml) 727.8 100 Ampicillin Sodium 2 gm In 375 100 Ns 100 ml @ 200 mls/hr IV Q4H RICKY Rx#:[id number] Heparin/Dextrose 500 ml @ 352.8 Per Protocol IV CONT RICKY Rx#:[id number] Output: Urine (ml) 1600 2250 Catheter 1600 2250 Other: Weight 77.9 kg 77.337 kg Number of Stools Toilet 1 1 No acute distress. JVP 12 cm water. Irregular regular rhythm. [place] mechanical S1. No S3. No rub. Lungs clear to auscultation without wheeze or rhonchi rales Trace bilateral lower extremity edema. Bullock still with bloody urine Result Diagrams: 01/03/19 09:30 01/03/19 09:30 Telemetry: Atrial fibrillation with controlled ventricular response. A single run of nonsustained VT yesterday evening ICD10 Worksheet Patient Problems: Problems Problem Status Onset Chronic Disease Mgmt/Transitional Care Acute Atrial fibrillation Acute Pneumonia Acute Elevated troponin Acute Aortic valve insufficiency Chronic S/P tricuspid valve repair Acute ~01/08/17 Acute blood loss anemia Acute Chronic anticoagulation Chronic S/P Maze operation for atrial fibrillation Acute ~01/08/17 S/P mitral valve replacement with metallic valve Acute ~01/08/17 Longstanding persistent atrial fibrillation Chronic Tricuspid regurgitation Chronic Mitral stenosis, supravalvar mitral ring Chronic
[2019-01-03] MEDS: LISINOPRIL 2.5 MG TAB PO SCH (14:56)
[2019-01-03] MEDS: MAGNESIUM OXIDE 400 MG TAB PO SCH ×2 (14:57→20:09)
--- NOTE | 2019-01-03 15:17 | PCMIDPN ---
Assessment/Plan: Assessment: 83-year-old man with Enterococcus faecalis bloodstream infection complicating nephrolithiasis in the setting a mechanical mitral valve replacement. No echocardiographic evidence for endocarditis. Plan will be 2 weeks of IV therapy with ID follow up to discuss further planning pending removal of nephrolithiasis.. 1. Enterococcus faecalis bacteremia; cleared 2. Nephrolithiasis at left UPJ s/p left ureteral stent 12.30.18 3. Pyelonephritis secondary to Enterococcus faecalis source of 1. 4. History of mitral valve replacement with mechanical valve; no ISABEL evidence for endocarditis 5. History of aortic valve repair 6. Mild transaminase elevation; Improved Plan: 1. Continue ampicillin while inpatient 2. Transition to continuous infusion penicillin 24 MU daily through 01.08.19 3. Reviewed in detail potential side effects of beta-lactam antibiotics to include: allergy, rash, nausea, antibiotic-associated diarrhea, Clostridioides difficile colitis. Brian Ruby MD Infectious Diseases 01/03/19 15:19 Subjective: No fever or chills in the past 24-hours. Tolerating oral diet with solids and liquids. No diarrhea, nausea, or other GI symptoms. No rash. Appetite improving. Ambulating without difficulty. Improved since admission but not back to baseline health. Objective: Vital Signs Temp Pulse Resp BP Pulse Ox 36.5 C 82 20 117/59 L 98 01/03/19 11:01 01/03/19 11:01 01/03/19 11:01 01/03/19 14:56 01/03/19 11:01 Laboratory Results 01/03/19 09:30 01/03/19 09:30 01/02/19 01/03/19 01/04/19 05:59 05:59 05:59 Intake Total 1127.8 1090 100 Output Total 1600 2250 Balance -472.2 -1160 100 Ongoing monitoring for antimicrobial toxicity with: CBC, BMP, interval historical information, and interval physical exam. Discussed treatment/diagnostic testing and testing results with admitting provider(s). Personally reviewed interval laboratory results. - Physical Exam General Appearance: no apparent distress, non-toxic EENT: No scleral icterus Respiratory: No respiratory distress, No accessory muscle use Neck: full range of motion, supple Extremities: swelling Skin: No erythema Neuro/Psych: alert, normal mood/affect, oriented x 3, No confused - Time Spent With Patient Time Spent with Patient: greater than 25 minutes Time Spent with Patient: Greater than 25 minutes spent on this patients care, greater than 50% of time spent counseling, educating, and coordinating care regarding the above mentioned plan. ICD10 Worksheet Patient Problems: Problems Problem Status Onset Atrial fibrillation Acute Chronic Disease Mgmt/Transitional Care Acute Elevated troponin Acute Pneumonia Acute Acute blood loss anemia Acute S/P Maze operation for atrial fibrillation Acute ~01/08/17 S/P mitral valve replacement with metallic valve Acute ~01/08/17 S/P tricuspid valve repair Acute ~01/08/17 Aortic valve insufficiency Chronic Chronic anticoagulation Chronic Longstanding persistent atrial fibrillation Chronic Mitral stenosis, supravalvar mitral ring Chronic Tricuspid regurgitation Chronic
[2019-01-03] MEDS ORDERED: WARFARIN SODIUM 5 MG TAB PO ONE (16:00)
[2019-01-03] MEDS: ATORVASTATIN CALCIUM 20 MG TAB PO SCH (20:10)
[2019-01-03] MEDS: AMIODARONE HCL 200 MG TAB PO SCH (20:10)
[2019-01-03] MEDS ORDERED: POTASSIUM CL 10 MEQ TAB PO ONE (20:11)
[2019-01-04] MEDS: AMPICILLIN SODIUM 2 GM in NS 100 ML IV SCH ×6 (02:00→21:33)
[2019-01-04 06:18] LABS: PLATELET COUNT 227 10^3/uL (150-400)
[2019-01-04 07:02] LABS: INR 1.85 (0.83-1.16); PROTIME(PATIENT) 20.5 SEC (12.0-15.0)
[2019-01-04] MEDS ORDERED: POTASSIUM CL 10 MEQ TAB PO ONE (07:46)
[2019-01-04] MEDS: FUROSEMIDE 40 MG/4 ML VIAL IVP SCH (08:22)
[2019-01-04] MEDS: POTASSIUM CL 20 MEQ TAB PO SCH (08:22)
[2019-01-04] MEDS: METOPROLOL SUCCINATE XR 100 MG TAB PO SCH (08:23)
[2019-01-04] MEDS: ASPIRIN 81 MG CHEWABLE TAB PO SCH (08:23)
[2019-01-04] MEDS: LISINOPRIL 2.5 MG TAB PO SCH (08:23)
[2019-01-04] MEDS: AMIODARONE HCL 200 MG TAB PO SCH ×2 (08:23→21:33)
[2019-01-04] MEDS: MAGNESIUM OXIDE 400 MG TAB PO SCH ×2 (08:23→21:33)
[2019-01-04] MEDS: SENNOSIDES/DOCUSATE SODIUM TAB PO SCH (08:36)
--- NOTE | 2019-01-04 08:47 | SOAPPROG ---
SOAP Progress Note Assessment/Plan: Assessment: Assessment/Plan: Assessment/plan: 83-year-old male with valvular disease. In 1999 he had mitral valve repair. In 2016 he had a mechanical mitral valve replacement and tricuspid valve ring with CM IV. Other history includes hypertension, diabetes , sleep apnea and atrial fibrillation. He was admitted on December 23 with dyspnea and fever. He was found to have enterococcal bacteremia from urinary source. He does have a left ureteropelvic junction stone with attempted removal 12/30. This was unsuccessful due to ureteral stricture, and therefore a left ureteral stent was placed by Dr. Catalan. During this admission he was found to have a significant decrement in his ejection fraction previously normal, now 15-20%. No obvious valvular vegetations seen on ISABEL. 1. New onset systolic heart failure: This may be related to rapid atrial fibrillation and sepsis. The latter is now resolved. He does not have a history of significant coronary disease. Will transition to Toprol and consider NGOZI-inhibitor once stability of creatinine is documented. will change to polasix today 2. Atrial fibrillation: successful cv yesterday...remains in NSR ..amiodarone stared 3. Valvular heart disease: Normally functioning mechanical mitral valve, moderate aortic regurgitation, tricuspid valve repair. No obvious valvular vegetation. He is now on heparin drip back up to therapeutic INR post urological surgery. 4. Ureteral stone/UTI/bacteremia: Followed by infectious disease, internal Medicine, and urology. On appropriate antibiotic therapy. Now with left ureteral stent. Ongoing hematuria. Bullock in place. 5. Anemia: May be related to bleeding. Plan:1. change to po lasix 01/04/19 08:44 Subjective: pt feeling better today.. i>o .remains in NSR. will change iv lasix to po Objective: Vital Signs Temp Pulse Resp BP Pulse Ox 36.4 C 92 18 103/66 95 01/04/19 08:00 01/04/19 08:23 01/04/19 08:00 01/04/19 08:23 01/04/19 08:00 Laboratory Results 01/04/19 06:00 01/04/19 06:00 01/03/19 01/04/19 01/05/19 05:59 05:59 05:59 Intake Total 1090 1230 Output Total 2250 1950 Balance -1160 -720 PT 20.5 SEC (12.0-15.0) H 01/04/19 06:00 INR 1.85 (0.83-1.16) H 01/04/19 06:00 Physical Exam - Physical Exam Respiratory: lungs clear Cardiac/Chest: regular rate, rhythm, No JVD ICD10 Worksheet Patient Problems: Problems Problem Status Onset Atrial fibrillation Acute Chronic Disease Mgmt/Transitional Care Acute Elevated troponin Acute Pneumonia Acute Acute blood loss anemia Acute S/P Maze operation for atrial fibrillation Acute ~01/08/17 S/P mitral valve replacement with metallic valve Acute ~01/08/17 S/P tricuspid valve repair Acute ~01/08/17 Aortic valve insufficiency Chronic Chronic anticoagulation Chronic Longstanding persistent atrial fibrillation Chronic Mitral stenosis, supravalvar mitral ring Chronic Tricuspid regurgitation Chronic
--- NOTE | 2019-01-04 08:54 | ASMTCMCOM ---
CM Note CM Note Notes: Chart reviewed for dc planning purposes. Patient to remain inpatient for now. Will need Home infusion, HHC and palliative f/u when medically able to dc. Per ID antibiotics needed through 01/08. CM to follow. Plan: Dc with above services when medically cleared for discharge to home. Date Signed: 01/04/2019 08:52 AM Electronically Signed By:Dianelys Pimentel RN
[2019-01-04] MEDS: FUROSEMIDE 40 MG TAB PO SCH ×2 (09:49→15:21)
[2019-01-04] MEDS: HEPARIN 10,000 UNIT/10 ML MDV (1,000 UNIT/ML) IVP PRN (10:40)
[2019-01-04] MEDS ORDERED: WARFARIN SODIUM 7.5 MG TAB PO ONE (16:00)
--- NOTE | 2019-01-04 16:49 | HOSPPROG ---
Hospitalist Progress Note Assessment/Plan: * Sepsis due to enterococcus - urinary source s/p pyelonephritis -IV Unasyn * 1.5 cm non-obstructing stone at L UPJ -s/p stent * Hematuria -continues with gross hematuria -hold heparin until active bleeding ceased -continue mccoy until bleeding ceases * Mechanical MVR -INR trending up on warfarin - hold heparin due to active bleed * ABL anemia due to hematuria -follow H/H * Acute on chronic systolic CHF - EF 24% * Afib s/p cardioversion * Vtach -amiodarone started * Acute respiratory failure due to CHF -improved, now 1L Subjective: no new complaints. Objective: Vital Signs Temp Pulse Resp BP Pulse Ox 37.2 C 74 16 91/46 L 93 01/04/19 15:37 01/04/19 15:37 01/04/19 15:37 01/04/19 15:37 01/04/19 15:37 Laboratory Results 01/04/19 06:00 01/04/19 06:00 01/03/19 01/04/19 01/05/19 05:59 05:59 05:59 Intake Total 1090 1230 Output Total 2250 1950 750 Balance -1160 -720 -750 PT 20.5 SEC (12.0-15.0) H 01/04/19 06:00 INR 1.85 (0.83-1.16) H 01/04/19 06:00 CT abd - 1.5cm stone - Physical Exam Constitutional: no apparent distress, appears nourished, not in pain Cardiovascular: regular rate and rhythym, no murmur, rub, or gallop Respiratory: no respiratory distress, no rales or rhonchi, clear to auscultation Gastrointestinal: normoactive bowel sounds, soft, non-tender abdomen, no palpable masses Skin: no rashes or abrasions, no fluctuance, no induration Neurologic: AAOx3, sensation intact bilaterally Psychiatric: interacting appropriately, not anxious, not encephalopathic, thought process linear ICD10 Worksheet Patient Problems: Problems Problem Status Onset Chronic Disease Mgmt/Transitional Care Acute Atrial fibrillation Acute Pneumonia Acute Elevated troponin Acute Aortic valve insufficiency Chronic S/P tricuspid valve repair Acute ~01/08/17 Acute blood loss anemia Acute Chronic anticoagulation Chronic S/P Maze operation for atrial fibrillation Acute ~01/08/17 S/P mitral valve replacement with metallic valve Acute ~01/08/17 Longstanding persistent atrial fibrillation Chronic Tricuspid regurgitation Chronic Mitral stenosis, supravalvar mitral ring Chronic
[2019-01-04] MEDS: ATORVASTATIN CALCIUM 20 MG TAB PO SCH (21:33)
[2019-01-05] MEDS: AMPICILLIN SODIUM 2 GM in NS 100 ML IV SCH ×6 (01:23→20:27)
[2019-01-05 05:39] LABS: PLATELET COUNT 256 10^3/uL (150-400)
[2019-01-05 05:47] LABS: INR 2.09 (0.83-1.16); PROTIME(PATIENT) 22.5 SEC (12.0-15.0)
[2019-01-05] MEDS: FUROSEMIDE 40 MG TAB PO SCH ×2 (08:18→15:09)
[2019-01-05] MEDS: METOPROLOL SUCCINATE XR 100 MG TAB PO SCH (08:18)
[2019-01-05] MEDS: LISINOPRIL 2.5 MG TAB PO SCH (08:19)
[2019-01-05] MEDS: POTASSIUM CL 20 MEQ TAB PO SCH (08:19)
[2019-01-05] MEDS: AMIODARONE HCL 200 MG TAB PO SCH ×2 (08:19→09:24)
[2019-01-05] MEDS: ASPIRIN 81 MG CHEWABLE TAB PO SCH (08:19)
[2019-01-05] MEDS: MAGNESIUM OXIDE 400 MG TAB PO SCH (08:19)
--- NOTE | 2019-01-05 08:49 | SOAPPROG ---
TONE Progress Note Assessment/Plan: Assessment: Assessment/Plan: Assessment/plan: 83-year-old male with valvular disease. In 1999 he had mitral valve repair. In 2016 he had a mechanical mitral valve replacement and tricuspid valve ring with CM IV. Other history includes hypertension, diabetes , sleep apnea and atrial fibrillation. He was admitted on December 23 with dyspnea and fever. He was found to have enterococcal bacteremia from urinary source. He does have a left ureteropelvic junction stone with attempted removal 12/30. This was unsuccessful due to ureteral stricture, and therefore a left ureteral stent was placed by Dr. Catalan. During this admission he was found to have a significant decrement in his ejection fraction previously normal, now 15-20%. No obvious valvular vegetations seen on ISABEL. 1. New onset systolic heart failure: This may be related to rapid atrial fibrillation and sepsis. The latter is now resolved. He does not have a history of significant coronary disease. Will transition to Toprol and consider NGOZI-inhibitor once stability of creatinine is documented. doinf well on po lasix no changes 2. Atrial fibrillation: successful cv...probable nsr ..no VT...decrease amiodarone...check ekg tomorrow 3. Valvular heart disease: Normally functioning mechanical mitral valve, moderate aortic regurgitation, tricuspid valve repair. No obvious valvular vegetation. transition to coumadin per pcp 4. Ureteral stone/UTI/bacteremia: Followed by infectious disease, internal Medicine, and urology. On appropriate antibiotic therapy. Now with left ureteral stent. Ongoing hematuria. Bullock in place. 5. Anemia: May be related to bleeding. Plan:1.decrease amiodarone 01/04/19 08:44 01/05/19 08:47 Subjective: pt doing... well from a cv standpoint...? nsr with pac vs afib...will get ekg tomorrow..decrease amiodarone...i>o on oral lasix Objective: Vital Signs Temp Pulse Resp BP Pulse Ox 36.9 C 86 18 134/69 H 96 01/05/19 07:37 01/05/19 07:37 01/05/19 07:37 01/05/19 07:37 01/05/19 07:37 Laboratory Results 01/05/19 05:25 01/05/19 05:25 01/04/19 01/05/1901/06/19 05:59 05:59 05:59 Intake Total 1230 880 Output Total 1950 1375 Balance -720 -495 PT 22.5 SEC (12.0-15.0) H 01/05/19 05:25 INR 2.09 (0.83-1.16) H 01/05/19 05:25 Physical Exam - Physical Exam Respiratory: lungs clear Cardiac/Chest: regular rate, rhythm, No edema, No gallop, No JVD ICD10 Worksheet Patient Problems: Problems Problem Status Onset Chronic Disease Mgmt/Transitional Care Acute Atrial fibrillation Acute Pneumonia Acute Elevated troponin Acute Aortic valve insufficiency Chronic S/P tricuspid valve repair Acute ~01/08/17 Acute blood loss anemia Acute Chronic anticoagulation Chronic S/P Maze operation for atrial fibrillation Acute ~01/08/17 S/P mitral valve replacement with metallic valve Acute ~01/08/17 Longstanding persistent atrial fibrillation Chronic Tricuspid regurgitation Chronic Mitral stenosis, supravalvar mitral ring Chronic
[2019-01-05] MEDS: PSYLLIUM METAMUCIL 1 PKT PO SCH (12:14)
--- NOTE | 2019-01-05 15:55 | HOSPPROG ---
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 truong - Dr parker already did [facility] a few days ago - Physical Exam Constitutional: no apparent distress, appears nourished, not in pain Cardiovascular: regular rate and rhythym, no murmur, rub, or gallop Respiratory: no respiratory distress, no rales or rhonchi, clear to auscultation Gastrointestinal: normoactive bowel sounds, soft, non-tender abdomen, no palpable masses Skin: no rashes or abrasions, no fluctuance, no induration Neurologic: AAOx3, sensation intact bilaterally Psychiatric: interacting appropriately, not anxious, not encephalopathic, thought process linear ICD10 Worksheet Patient Problems: Problems Problem Status Onset Chronic Disease Mgmt/Transitional Care Acute Atrial fibrillation Acute Pneumonia Acute Elevated troponin Acute Aortic valve insufficiency Chronic S/P tricuspid valve repair Acute ~01/08/17 Acute blood loss anemia Acute Chronic anticoagulation Chronic S/P Maze operation for atrial fibrillation Acute ~01/08/17 S/P mitral valve replacement with metallic valve Acute ~01/08/17 Longstanding persistent atrial fibrillation Chronic Tricuspid regurgitation Chronic Mitral stenosis, supravalvar mitral ring Chronic
[2019-01-05] MEDS ORDERED: WARFARIN SODIUM 7.5 MG TAB PO ONE (16:00)
[2019-01-05] MEDS: ATORVASTATIN CALCIUM 20 MG TAB PO SCH (20:27)
[2019-01-06] MEDS: AMPICILLIN SODIUM 2 GM in NS 100 ML IV SCH ×6 (01:07→22:27)
[2019-01-06 06:07] LABS: PLATELET COUNT 245 10^3/uL (150-400)
[2019-01-06 06:17] LABS: INR 2.7 (0.83-1.16); PROTIME(PATIENT) 27.3 SEC (12.0-15.0)
[2019-01-06] MEDS: LISINOPRIL 2.5 MG TAB PO SCH (08:56)
[2019-01-06] MEDS: AMIODARONE HCL 200 MG TAB PO SCH (08:56)
[2019-01-06] MEDS: METOPROLOL SUCCINATE XR 100 MG TAB PO SCH (08:56)
[2019-01-06] MEDS: FUROSEMIDE 40 MG TAB PO SCH (08:56)
[2019-01-06] MEDS: POTASSIUM CL 20 MEQ TAB PO SCH (08:56)
--- NOTE | 2019-01-06 10:28 | SOAPPROG ---
TONE Progress Note Assessment/Plan: Assessment: Assessment/Plan: Assessment/plan: 83-year-old male with valvular disease. In 1999 he had mitral valve repair. In 2016 he had a mechanical mitral valve replacement and tricuspid valve ring with CM IV. Other history includes hypertension, diabetes , sleep apnea and atrial fibrillation. He was admitted on December 23 with dyspnea and fever. He was found to have enterococcal bacteremia from urinary source. He does have a left ureteropelvic junction stone with attempted removal 12/30. This was unsuccessful due to ureteral stricture, and therefore a left ureteral stent was placed by Dr. Catalan. During this admission he was found to have a significant decrement in his ejection fraction previously normal, now 15-20%. No obvious valvular vegetations seen on ISABEL. 1. New onset systolic heart failure: This may be related to rapid atrial fibrillation and sepsis. The latter is now resolved. He does not have a history of significant coronary disease. Will transition to Toprol and consider NGOZI-inhibitor once stability of creatinine is documented. doinf well on po lasix no changes 2. Atrial fibrillation: successful cv...probable nsr ..no VT...ekg shows NSR...no changes today ...will amiodarone to 200 mg q day in a day or so 3. Valvular heart disease: Normally functioning mechanical mitral valve, moderate aortic regurgitation, tricuspid valve repair. No obvious valvular vegetation. transition to coumadin per pcp 4. Ureteral stone/UTI/bacteremia: Followed by infectious disease, internal Medicine, and urology. On appropriate antibiotic therapy. Now with left ureteral stent. Ongoing hematuria. Bullock in place. 5. Anemia: May be related to bleeding. Plan:1.decrease amiodarone 01/04/19 08:44 01/05/19 08:47 01/06/19 10:28 Subjective: pt seen with and family....ekg reviewed ..NSR...will probably decrease amiodarone to 200 mg q day...pt will need f/u in transitional care....no changes from my standpoint today Objective: Vital Signs Temp Pulse Resp BP Pulse Ox 37.3 C 83 18 123/72 H 96 01/06/19 07:57 01/06/19 07:57 01/06/19 07:57 01/06/19 07:57 01/06/19 07:57 Laboratory Results 01/06/19 05:45 01/06/19 05:45 01/05/19 01/06/19 01/07/19 05:59 05:59 05:59 Intake Total 880 200 Output Total 1375 900 Balance -495 -700 PT 27.3 SEC (12.0-15.0) H 01/06/19 05:45 INR 2.70 (0.83-1.16) H 01/06/19 05:45 ICD10 Worksheet Patient Problems: Problems Problem Status Onset Chronic Disease Mgmt/Transitional Care Acute Atrial fibrillation Acute Pneumonia Acute Elevated troponin Acute Aortic valve insufficiency Chronic S/P tricuspid valve repair Acute ~01/08/17 Acute blood loss anemia Acute Chronic anticoagulation Chronic S/P Maze operation for atrial fibrillation Acute ~01/08/17 S/P mitral valve replacement with metallic valve Acute ~01/08/17 Longstanding persistent atrial fibrillation Chronic Tricuspid regurgitation Chronic Mitral stenosis, supravalvar mitral ring Chronic
[2019-01-06] MEDS: PSYLLIUM METAMUCIL 1 PKT PO SCH (12:11)
--- NOTE | 2019-01-06 13:53 | CPEKG ---
Test Reason : Pre Cardioversion/ISABEL Blood Pressure : / mmHG Vent. Rate : 112 BPM Atrial Rate : 000 BPM P-R Int : 161 ms QRS Dur : 098 ms QT Int : 374 ms P-R-T Axes : 000 -84 000 degrees QTc Int : 511 ms Atrial fibrillation frequent pvc Markedly posterior QRS axis Nonspecific T abnormalities, lateral leads Prolonged QT interval Confirmed by Herve Solis ([id number]) on 01/06/2019 1:52:42 PM Referred By: Masood Peng Confirmed By:Herve Solis
[2019-01-06] MEDS: FUROSEMIDE 40 MG/4 ML VIAL IVP SCH (15:11)
--- NOTE | 2019-01-06 15:28 | CPEKG ---
Test Reason : OPEN Blood Pressure : / mmHG Vent. Rate : 115 BPM Atrial Rate : 000 BPM P-R Int : 148 ms QRS Dur : 093 ms QT Int : 366 ms P-R-T Axes : 000 026 000 degrees QTc Int : 507 ms Sinus tachycardia Paired ventricular premature complexes Low voltage, extremity leads Prolonged QT interval Confirmed by Herve Solis ([id number]) on 01/06/2019 3:28:33 PM Referred By: Masood Peng Confirmed By:Herve Solis
--- NOTE | 2019-01-06 15:37 | CPEKG ---
Test Reason : OPEN Blood Pressure : / mmHG Vent. Rate : 081 BPM Atrial Rate : 000 BPM P-R Int : 216 ms QRS Dur : 103 ms QT Int : 377 ms P-R-T Axes : 000 131 242 degrees QTc Int : 438 ms Atrial fibrillation Ventricular premature complex Right axis deviation Nonspecific T abnormalities, diffuse leads Confirmed by Herve Solis ([id number]) on 01/06/2019 3:37:01 PM Referred By: Masood Peng Confirmed By:Herve Solis
--- NOTE | 2019-01-06 15:37 | CPEKG ---
Test Reason : OPEN Blood Pressure : / mmHG Vent. Rate : 087 BPM Atrial Rate : 000 BPM P-R Int : 368 ms QRS Dur : 096 ms QT Int : 415 ms P-R-T Axes : 000 065 000 degrees QTc Int : 500 ms Sinus rhythm, PVC, PAC Low voltage, extremity leads Borderline prolonged QT interval Confirmed by Herve Solis ([id number]) on 01/06/2019 3:36:49 PM Referred By: Masood Peng Confirmed By:Herve Solis
[2019-01-06] MEDS ORDERED: WARFARIN SODIUM 5 MG TAB PO ONE (16:00)
--- NOTE | 2019-01-06 16:27 | HOSPPROG ---
Hospitalist Progress Note Assessment/Plan: * Sepsis due to enterococcus - urinary source - probable Pyelonephritis -IV Unasyn through 01/08 -discharge with PO Amoxicillin 500mg BID to continue until stone with definitive treatment * 1.5 cm non-obstructing stone at L [facility] -s/p stent -follow-up urology for stone tx and stent removal * Hematuria -some improvement - continue to monitor with mccoy -DC mccoy when hematuria resolved * Mechanical MVR -INR therapeutic * ABL anemia due to hematuria -follow H/H * Acute on chronic systolic CHF - EF 24% -still volume overload - continue IV lasix for now * Afib s/p cardioversion -remains NSR * Vtach -amiodarone started * Acute respiratory failure due to CHF * Moderate right pleural effusion - suspect due to CHF -could do thoracentesis but probably not worth INR reversal -will absorb slowly with diuresis Subjective: Urine getting clearer Objective: Vital Signs Temp Pulse Resp BP Pulse Ox 37.1 C 73 16 119/60 100 01/06/19 15:56 01/06/19 15:56 01/06/19 15:56 01/06/19 15:56 01/06/19 15:56 Laboratory Results 01/06/19 05:45 01/06/19 05:45 01/05/19 01/06/19 01/07/19 05:59 05:59 05:59 Intake Total 880 200 Output Total 1375 900 450 Balance -495 -700 -450 PT 27.3 SEC (12.0-15.0) H 01/06/19 05:45 INR 2.70 (0.83-1.16) H 01/06/19 05:45 CXR - persistent moderate right pleural effusion EKG viewed, my personal interpretation is - probable NSR, low voltage - Physical Exam Constitutional: no apparent distress, appears nourished, not in pain Cardiovascular: regular rate and rhythym, no murmur, rub, or gallop Respiratory: no respiratory distress, no rales or rhonchi, clear to auscultation Gastrointestinal: normoactive bowel sounds, soft, non-tender abdomen, no palpable masses Skin: no rashes or abrasions, no fluctuance, no induration Neurologic: AAOx3, sensation intact bilaterally Psychiatric: interacting appropriately, not anxious, not encephalopathic, thought process linear ICD10 Worksheet Patient Problems: Problems Problem Status Onset Chronic Disease Mgmt/Transitional Care Acute Atrial fibrillation Acute Pneumonia Acute Elevated troponin Acute Aortic valve insufficiency Chronic S/P tricuspid valve repair Acute ~01/08/17 Acute blood loss anemia Acute Chronic anticoagulation Chronic S/P Maze operation for atrial fibrillation Acute ~01/08/17 S/P mitral valve replacement with metallic valve Acute ~01/08/17 Longstanding persistent atrial fibrillation Chronic Tricuspid regurgitation Chronic Mitral stenosis, supravalvar mitral ring Chronic
--- NOTE | 2019-01-06 17:37 | ASMTCMCOM ---
CM Note CM Note Notes: 01/06/2019 Case Management Note Discussed pt during rounds. Family present. Elsa [phone], Damaris [phone], Ramila [phone], Yarely [phone]. 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 Pt likely to stay in hospital until end of antibiotics on 01/08. Notified [facility] and [facility] of likely change in dispo plan. Case Management d/c poc: [facility]. Case Management to follow. Date Signed: 01/06/2019 03:11 PM Electronically Signed By:Gina South RN
--- NOTE | 2019-01-06 18:45 | ASMTLACE ---
LACE Length of stay for Answers: 14 days or more current admission Acuity / Level of Answers: Yes Care: Did the patient have an inpatient admission? Comorbidities - select Answers: Congestive heart failure all that apply Diabetes (uncontrolled or controlled) Other Notes: HTN; AFib # of Emergency department Answers: 1-2 visits in the last 6 months Score: 15 Date Signed: 01/06/2019 03:31 PM Electronically Signed By:Fidelina Prieto
[2019-01-06] MEDS: ATORVASTATIN CALCIUM 20 MG TAB PO SCH (22:27)
[2019-01-07] MEDS: AMPICILLIN SODIUM 2 GM in NS 100 ML IV SCH ×6 (02:09→21:17)
[2019-01-07] MEDS: FUROSEMIDE 40 MG/4 ML VIAL IVP SCH ×2 (08:04→15:51)
[2019-01-07] MEDS: AMIODARONE HCL 200 MG TAB PO SCH (08:05)
[2019-01-07] MEDS: METOPROLOL SUCCINATE XR 100 MG TAB PO SCH (08:05)
[2019-01-07] MEDS: POTASSIUM CL 20 MEQ TAB PO SCH (08:05)
[2019-01-07] MEDS: LISINOPRIL 2.5 MG TAB PO SCH (08:05)
--- NOTE | 2019-01-07 10:02 | SOAPPROG ---
TONE Progress Note Assessment/Plan: Assessment: Assessment/Plan: Assessment/plan: 83-year-old male with valvular disease. In 1999 he had mitral valve repair. In 2016 he had a mechanical mitral valve replacement and tricuspid valve ring with CM IV. Other history includes hypertension, diabetes , sleep apnea and atrial fibrillation. He was admitted on December 23 with dyspnea and fever. He was found to have enterococcal bacteremia from urinary source. He does have a left ureteropelvic junction stone with attempted removal 12/30. This was unsuccessful due to ureteral stricture, and therefore a left ureteral stent was placed by Dr. Catalan. During this admission he was found to have a significant decrement in his ejection fraction previously normal, now 15-20%. No obvious valvular vegetations seen on ISABEL. 1. New onset systolic heart failure: This may be related to rapid atrial fibrillation and sepsis. The latter is now resolved. He does not have a history of significant coronary disease. Will transition to Toprol and consider NGOZI-inhibitor once stability of creatinine is documented. doing well on po lasix no changes 2. Atrial fibrillation: successful cv...probable nsr ..no VT...ekg shows NSR...no changes today ...will amiodarone to 200 mg on day of d/c 3. Valvular heart disease: Normally functioning mechanical mitral valve, moderate aortic regurgitation, tricuspid valve repair. No obvious valvular vegetation. transition to coumadin per pcp 4. Ureteral stone/UTI/bacteremia: Followed by infectious disease, internal Medicine, and urology. On appropriate antibiotic therapy. Now with left ureteral stent. Ongoing hematuria. Bullock in place. 5. Anemia: May be related to bleeding. Plan:1.ok to d/c home with weekly f/u at [facility] 01/04/19 08:44 01/05/19 08:47 01/06/19 10:28 01/07/19 10:01 Subjective: pt doing well from a cv standpoint...ok to d/c home ...would d/c on amiodarone 200 mg q day..f/u weekly for 4 weeks at [facility] for chf f/u Objective: Vital Signs Temp Pulse Resp BP Pulse Ox 36.7 C 80 20 119/69 100 01/07/19 06:48 01/07/19 06:48 01/07/19 06:48 01/07/19 06:48 01/07/19 06:48 Laboratory Results 01/06/19 05:45 01/06/19 05:45 01/06/19 01/07/19 01/08/19 05:59 05:59 05:59 Intake Total 200 1141 Output Total 900 1400 Balance -700 -259 PT 27.3 SEC (12.0-15.0) H 01/06/19 05:45 INR 2.70 (0.83-1.16) H 01/06/19 05:45 Physical Exam - Physical Exam Respiratory: lungs clear Cardiac/Chest: regular rate, rhythm, No edema, No gallop, No JVD ICD10 Worksheet Patient Problems: Problems Problem Status Onset Atrial fibrillation Acute Chronic Disease Mgmt/Transitional Care Acute Elevated troponin Acute Pneumonia Acute Acute blood loss anemia Acute S/P Maze operation for atrial fibrillation Acute ~01/08/17 S/P mitral valve replacement with metallic valve Acute ~01/08/17 S/P tricuspid valve repair Acute ~01/08/17 Aortic valve insufficiency Chronic Chronic anticoagulation Chronic Longstanding persistent atrial fibrillation Chronic Mitral stenosis, supravalvar mitral ring Chronic Tricuspid regurgitation Chronic
[2019-01-07 10:23] LABS: INR 2.95 (0.83-1.16); PROTIME(PATIENT) 29.2 SEC (12.0-15.0)
[2019-01-07] MEDS: PSYLLIUM METAMUCIL 1 PKT PO SCH (12:43)
--- NOTE | 2019-01-07 13:09 | PCMIDPN ---
Assessment/Plan: Assessment/Plan: * Enterococcal bacteremia with underlying prosthetic mitral valve and prior tricuspid valve annuloplasty: Completing 2 weeks of IV ampicillin which will end tomorrow. Ureteral stent placed with kidney stone removal not feasible due to stricture. Now planned for later date. Will transition to amoxicillin 500 mg orally twice daily beginning on 01/09/2019 as suppressive therapy which will need to be continued until stone has been removed. Discussed with patient and family rationale for suppressive antibiotic therapy. Potential allergic reactions or C difficile colitis were also reviewed. Will arrange for follow- up in the office with me on an ongoing basis pending stone removal. Time spent, greater than 25 min, which greater than half was spent in education/ counseling coordination of care related to enterococcal bacteremia and plan of care. 01/07/19 13:04 Subjective: Patient complains of shortness of breath. Still some blood in urine. Objective: Vital Signs Temp Pulse Resp BP Pulse Ox 36.6 C 63 20 117/53 L 99 01/07/19 11:37 01/07/19 11:37 01/07/19 11:37 01/07/19 11:37 01/07/19 11:37 Laboratory Results 01/07/19 09:45 01/07/19 09:45 01/06/19 01/07/19 01/08/19 05:59 05:59 05:59 Intake Total 200 1141 Output Total 900 1400 Balance -700 -259 Ampicillin # 13/14 - Physical Exam General Appearance: alert, no apparent distress EENT: No scleral icterus, No thrush Respiratory: lungs clear, No respiratory distress Abdomen: non-tender, No distended Back: No CVA tenderness ICD10 Worksheet Patient Problems: Problems Problem Status Onset Atrial fibrillation Acute Chronic Disease Mgmt/Transitional Care Acute Elevated troponin Acute Pneumonia Acute Acute blood loss anemia Acute S/P Maze operation for atrial fibrillation Acute ~01/08/17 S/P mitral valve replacement with metallic valve Acute ~01/08/17 S/P tricuspid valve repair Acute ~01/08/17 Aortic valve insufficiency Chronic Chronic anticoagulation Chronic Longstanding persistent atrial fibrillation Chronic Mitral stenosis, supravalvar mitral ring Chronic Tricuspid regurgitation Chronic
--- NOTE | 2019-01-07 13:24 | ASMTCMCOM ---
CM Note CM Note Notes: 01/07/2019 Case Management Note Therapies recommending home care. Pt to discharge on oral antibiotics. Notified [facility] of change. Discussed with [facility]. Pt has not returned phone call yet to set up appointment. [facility] to continue to reach out to pt. Case Management d/c poc: [facility] RN PT OT with outpatient [facility] support. Case Management to follow. Date Signed: 01/07/2019 01:22 PM Electronically Signed By:Gina South RN
--- NOTE | 2019-01-07 13:25 | HOSPPROG ---
Hospitalist Progress Note Assessment/Plan: * Sepsis due to enterococcus - urinary source - probable Pyelonephritis -IV Unasyn through 01/08 -discharge with PO Amoxicillin 500mg BID to continue until stone with definitive treatment * 1.5 cm non-obstructing stone at L [facility] -s/p stent -follow-up urology for stone tx and stent removal * Hematuria -resolved - DC mccoy * Mechanical MVR -INR therapeutic * ABL anemia due to hematuria -follow H/H * Acute on chronic systolic CHF - EF 24% -still volume overload - continue IV lasix * Afib s/p cardioversion -remains NSR * Vtach -amiodarone started * Acute respiratory failure due to CHF * Moderate right pleural effusion - suspect due to CHF -could do thoracentesis but probably not worth INR reversal -will absorb slowly with diuresis Subjective: Urine has cleared. Anxious for DC home tomorrow. Still very SOB with exertion Objective: Vital Signs Temp Pulse Resp BP Pulse Ox 36.6 C 63 20 117/53 L 99 01/07/19 11:37 01/07/19 11:37 01/07/19 11:37 01/07/19 11:37 01/07/19 11:37 Laboratory Results 01/07/19 09:45 01/07/19 09:45 01/06/19 01/07/19 01/08/19 05:59 05:59 05:59 Intake Total 200 1141 Output Total 900 1400 Balance -700 -259 PT 29.2 SEC (12.0-15.0) H 01/07/19 09:45 INR 2.95 (0.83-1.16) H 01/07/19 09:45 d/w Dr. Campos - agrees with plan for home tomorrow tele reviewed - afib vs. NSR with PAC - Physical Exam Constitutional: no apparent distress, appears nourished, not in pain Cardiovascular: regular rate and rhythym, no murmur, rub, or gallop, edema (2+) Respiratory: no respiratory distress, no rales or rhonchi, clear to auscultation Gastrointestinal: normoactive bowel sounds, soft, non-tender abdomen, no palpable masses Skin: no rashes or abrasions, no fluctuance, no induration Neurologic: AAOx3, sensation intact bilaterally Psychiatric: interacting appropriately, not anxious, not encephalopathic, thought process linear ICD10 Worksheet Patient Problems: Problems Problem Status Onset Chronic Disease Mgmt/Transitional Care Acute Atrial fibrillation Acute Pneumonia Acute Elevated troponin Acute Aortic valve insufficiency Chronic S/P tricuspid valve repair Acute ~01/08/17 Acute blood loss anemia Acute Chronic anticoagulation Chronic S/P Maze operation for atrial fibrillation Acute ~01/08/17 S/P mitral valve replacement with metallic valve Acute ~01/08/17 Longstanding persistent atrial fibrillation Chronic Tricuspid regurgitation Chronic Mitral stenosis, supravalvar mitral ring Chronic
[2019-01-07] MEDS ORDERED: WARFARIN SODIUM 5 MG TAB PO ONE (16:00)
[2019-01-07] MEDS: ATORVASTATIN CALCIUM 20 MG TAB PO SCH (21:17)
[2019-01-08] MEDS: AMPICILLIN SODIUM 2 GM in NS 100 ML IV SCH ×2 (00:57→04:16)
[2019-01-08 04:36] LABS: INR 3.05 (0.83-1.16)
[2019-01-08] MEDS: POTASSIUM CL 20 MEQ TAB PO SCH (08:15)
[2019-01-08] MEDS: FUROSEMIDE 40 MG/4 ML VIAL IVP SCH (08:15)
[2019-01-08] MEDS: METOPROLOL SUCCINATE XR 100 MG TAB PO SCH (08:15)
[2019-01-08] MEDS: LISINOPRIL 2.5 MG TAB PO SCH (08:15)
[2019-01-08] MEDS: AMIODARONE HCL 200 MG TAB PO SCH (08:15)
--- NOTE | 2019-01-08 10:01 | SOAPPROG ---
TONE Progress Note Assessment/Plan: Assessment: Assessment/Plan: Assessment/plan: 83-year-old male with valvular disease. In 1999 he had mitral valve repair. In 2016 he had a mechanical mitral valve replacement and tricuspid valve ring with CM IV. Other history includes hypertension, diabetes , sleep apnea and atrial fibrillation. He was admitted on December 23 with dyspnea and fever. He was found to have enterococcal bacteremia from urinary source. He does have a left ureteropelvic junction stone with attempted removal 12/30. This was unsuccessful due to ureteral stricture, and therefore a left ureteral stent was placed by Dr. Catalan. During this admission he was found to have a significant decrement in his ejection fraction previously normal, now 15-20%. No obvious valvular vegetations seen on ISABEL. 1. New onset systolic heart failure: This may be related to rapid atrial fibrillation and sepsis. The latter is now resolved. He does not have a history of significant coronary disease. Will transition to Toprol and consider NGOZI-inhibitor once stability of creatinine is documented. doing well on po lasix no changes 2. Atrial fibrillation: successful cv...probable nsr ..no VT...ekg shows NSR...no changes today ...will amiodarone to 200 mg on day of d/c 3. Valvular heart disease: Normally functioning mechanical mitral valve, moderate aortic regurgitation, tricuspid valve repair. No obvious valvular vegetation. transition to coumadin per pcp 4. Ureteral stone/UTI/bacteremia: Followed by infectious disease, internal Medicine, and urology. On appropriate antibiotic therapy. Now with left ureteral stent. Ongoing hematuria. Bullock in place. 5. Anemia: May be related to bleeding. Plan:1.ok to d/c home with weekly f/u at [facility].... MD home on amiodarone 200 mg p.o. Q.day. 01/04/19 08:44 01/05/19 08:47 01/06/19 10:28 01/07/19 10:01 01/08/19 10:01 Subjective: Continues to do well from a cardiac standpoint. Patient rated go home from other standpoints. Would discharge on amiodarone 200 mg p.o. Q.day. Patient should have weekly follow-up signs 4 per transitional care at [facility]. I spoke to the patient and his family and answered the questions regarding this. Objective: Vital Signs Temp Pulse Resp BP Pulse Ox 36.9 C 90 20 116/63 82 L 01/08/19 07:06 01/08/19 08:55 01/08/19 07:06 01/08/19 07:06 01/08/19 08:55 Laboratory Results 01/07/19 09:45 01/08/19 04:15 01/07/19 01/08/19 01/09/19 05:59 05:59 05:59 Intake Total 1141 1175 Output Total 1400 1000 Balance -259 175 PT 30.0 SEC (12.0-15.0) H 01/08/19 04:15 INR 3.05 (0.83-1.16) H 01/08/19 04:15 ICD10 Worksheet Patient Problems: Problems Problem Status Onset Atrial fibrillation Acute Chronic Disease Mgmt/Transitional Care Acute Elevated troponin Acute Pneumonia Acute Acute blood loss anemia Acute S/P Maze operation for atrial fibrillation Acute ~01/08/17 S/P mitral valve replacement with metallic valve Acute ~01/08/17 S/P tricuspid valve repair Acute ~01/08/17 Aortic valve insufficiency Chronic Chronic anticoagulation Chronic Longstanding persistent atrial fibrillation Chronic Mitral stenosis, supravalvar mitral ring Chronic Tricuspid regurgitation Chronic
[2019-01-08 11:08] VITALS: BP 113/62
--- NOTE | 2019-01-08 11:55 | PDIAF ---
- Diagnosis Diagnosis: Enterococcal bacteremia Code Status: Full Code - Medication Management Discharge Medications: electronically signed and located in the Home Medication List. PICC Care - Routine: Yes - Orders Services needed: Home Care, Registered Nurse, Physical Therapy, Occupational Therapy Home Care Face to Face: I certify that this patient was under my care and that I had the required [id number] encounter meeting the encounter requirements on the discharge day. My findings support the fact that the patient is homebound as defined in Home Care Face to Face Continued: CMS Chapter 7 Medicare Benefits Manual 30.1.1 , The condition of the patient is such that there exists a normal inability to leave home and consequently, leaving home would require a considerable and taxing effort. Diet Recommendation: no restrictions on diet Weigh Patient: daily Additional Instructions: INR check Sunday with Eric Continue oral antibiotics until stone is definitely treated - Labs/Radiology CBC w/diff Date: 01/06/19 CMP Date: 01/06/19 Call or Fax Lab and Imaging Results to: Juan Francisco Campos MD [facility] at fax [phone] - Follow Up Care Current Providers and Referrals: Leatha Aleman MD [Primary Care Provider] - As per Instructions Juan Francisco Campos MD [Medical Doctor] - 01/16/19 11:00 am Tino Catalan MD [Medical Doctor] - follow up in 1 week (follow-up for stent removal and stone treatment) Jesse Ward MD [Medical Doctor] - follow up in 2 weeks
--- NOTE | 2019-01-08 11:56 | PDHOMEO2F ---
Home Oxygen Face to Face Home Orders: I certify that a physician or a nurse practitioner or physician's machine assistant has had a gjfp-[id number] encounter with this patient on the date of this order due to the diagnosis listed, which relates to the primary reason the patient requires home oxygen. Alternative treatments have been tried, or considered, and deemed ineffective. It is anticipated that supplemental oxygen will result in improvement with treatment. Home oxygen qualifying diagnosis: CHF SpO2 on room air (%): 82 Frequency of home oxygen needed: continuous Home oxygen liters per minute: 2 Home oxygen delivery device: nasal cannula Concentrator: Yes E-tanks for mobility and back up: Yes If ordering portable O2, is the patient mobile in the home?: Yes I certify that, based on these findings, the home oxygen is medically necessary for this patient for the following length of time. Length of time home oxygen needed: 99 years
--- NOTE | 2019-01-08 12:43 | ASMTDCNOTE ---
Case Management Discharge Discharge Order Complete? Answers: Yes Patient to Obtain Answers: via Family Medications Transportation Arranged Answers: Family/Friends Faxed Final Orders Answers: Yes Notes: americo DICKSON Agency/Facility Transfer Answers: Yes Notes: coty DICKSON Report Printed & Faxed to Receiving Agency Discharge Comments Notes: 01/08/2019 Case Management Note Faxed final d/c orders to [facility]. Notified [facility] on the phone. Case Management d/c poc: BCTIM RN [facility] Date Signed: 01/08/2019 12:42 PM Electronically Signed By:Gina South RN
--- NOTE | 2019-01-08 14:07 | SOAPPROG ---
TONE Progress Note Assessment/Plan: Assessment: Left UPJ stone Enterococcus UTI- resolving stent placement 12/30 gross hematuria Plan: Going home today stent in place advised to call my office for an appointment next week for definitive stone therapy 12/27/18 12:33 12/28/18 09:55 12/29/18 08:07 12/31/18 06:37 12/31/18 06:40 01/01/19 16:11 01/08/19 14:07 Subjective: patient being discharged today urine now clear stent remains in place Objective: Vital Signs Temp Pulse Resp BP Pulse Ox 36.3 C 79 21 H 113/62 93 01/08/19 11:05 01/08/19 11:05 01/08/19 11:05 01/08/19 11:05 01/08/19 11:05 Laboratory Results 01/07/19 09:45 01/08/19 04:15 01/07/19 01/08/19 01/09/19 05:59 05:59 05:59 Intake Total 1141 1175 Output Total 1400 1000 Balance -259 175 PT 30.0 SEC (12.0-15.0) H 01/08/19 04:15 INR 3.05 (0.83-1.16) H 01/08/19 04:15 ICD10 Worksheet Patient Problems: Problems Problem Status Onset Atrial fibrillation Acute Chronic Disease Mgmt/Transitional Care Acute Elevated troponin Acute Pneumonia Acute Acute blood loss anemia Acute S/P Maze operation for atrial fibrillation Acute ~01/08/17 S/P mitral valve replacement with metallic valve Acute ~01/08/17 S/P tricuspid valve repair Acute ~01/08/17 Aortic valve insufficiency Chronic Chronic anticoagulation Chronic Longstanding persistent atrial fibrillation Chronic Mitral stenosis, supravalvar mitral ring Chronic Tricuspid regurgitation Chronic
[2019-01-08] MEDS ORDERED: WARFARIN SODIUM 5 MG TAB PO SCH (16:00)
--- NOTE | 2019-01-08 21:07 | GDS ---
[f rep st] DISCHARGE SUMMARY DISCHARGE DIAGNOSES: 1. Sepsis due to enterococcus. Probably source of infection is pyelonephritis. 2. 1.5 cm nonobstructing stone at the left uteropelvic junction. 3. Persistent hematuria. 4. Mechanical mitral valve replacement. 5. Acute blood loss anemia due to hematuria. 6. Acute on chronic systolic heart failure. Ejection fraction newly reduced to 25%. 7. Atrial fibrillation, status post cardioversion. 8. Ventricular tachycardia. 9. Acute respiratory failure due to congestive heart failure. 10. Persistent right pleural effusion due to congestive heart failure. HISTORY: The patient is an 83-year-old male who presented with shortness of breath. He had been hav ing fever and rigors for 3 weeks prior to admission with a fever of 102. Blood cultures grew enteroco ccus. He was found to have a kidney stone and had suspected pyelonephritis. Infectious Disease was co nsulted, as well as Urology. Urology attempted to remove the stone but was unsuccessful, so a stent w as placed. He will discharge home, for outpatient followup with Dr. Catalan for stent removal and def initive stone treatment. He will need to remain on antibiotics until the stone is definitively treat ed. He received IV Unasyn for a prolonged course, which was finished this morning. He will now discha rge on amoxicillin 500 mg p.o. b.i.d. to continue until stone is treated. After his stent procedure, he had prolonged hematuria that was difficult to stop. This was due to th e fact he has a mechanical mitral valve replacement and requires fairly aggressive anticoagulation. W e tried to bridge him with IV heparin but could not get the hematuria to stop, so went ahead and stop ped the heparin for a couple of days as his INR was up trending, and we were able to successfully fin d a balance of anticoagulation and bleeding. Hematuria has resolved. He has therapeutic INR on hospi master discharge. During this hospitalization, echocardiogram revealed a newly reduced ejection fraction down to 20%. H e was volume overloaded and required multiple days of IV Lasix. Cardiology saw him in consultation. He had ventricular tachycardia and atrial fibrillation. He underwent cardioversion for the AFib. He was started on amiodarone. His medications were adjusted to reflect his newly reduced ejection fract ion. He does have a persistent right pleural effusion which is likely due to his CHF. He did not ge t a thoracentesis and will have to slowly resolve with diuretics. DISCHARGE MEDICATIONS: Please see computerized record for full detailed list. New Medications 1. Amiodarone 200 mg p.o. daily. 2. Amoxicillin 500 mg p.o. b.i.d. 3. Lisinopril 2.5 mg p.o. daily. 4. Toprol-XL 100 mg p.o. daily. 5. Warfarin dose changed to 5 mg p.o. daily. Discontinued medications include: 1. Diltiazem 240 mg p.o. daily. 2. Metoprolol 50 mg p.o. b.i.d. ADDITIONAL DISCHARGE INSTRUCTIONS: 1. Repeat INR this upcoming Sunday at [facility] as he is new to amiodarone and antibiotics and suspect this may change his baseline dose. 2. Continue oral antibiotics until stone is definitively treated. 3. Follow up with Dr. Tino Catalan in 1 week for stent removal and stone treatment. 4. Follow up with bar tender, Dr. Jesse Ward, in 2 weeks. 5. Followup with Dr. Juan Francisco Campos, infectious disease scheduled for January 16 at 11 a.m. 6. Home oxygen arranged at discharge as he is persistently 82% on room air. Greater than 30 minutes' time was spent arranging this discharge. Patient was seen and examined by geovanna chaudhry on day of discharge. /[id number]/MODL
== END 2019-01-08 14:39 | disposition home health service (06) | DRG 871 ==
LOC: F2W 15:39 → F2N 12-24 15:57 → F2W 12-27 10:35
PROVIDERS: ADMIT Internal Medicine; ATTEND Internal Medicine
PROC: B245ZZ4 Ultrasonography of Left Heart, Transesophageal (ICD-10-PCS; 2018-12-25)
PROC: 02H633Z Insertion of Infusion Device into Right Atrium, Percutaneous Approach (ICD-10-PCS; 2018-12-27)
PROC: 0T9B70Z Drainage of Bladder with Drainage Device, Via Natural or Artificial Opening (ICD-10-PCS; principal; 2018-12-30 16:15)
PROC: 0T774DZ Dilation of Left Ureter with Intraluminal Device, Percutaneous Endoscopic Approach (ICD-10-PCS; principal; 2018-12-30 16:15)
PROC: B245ZZ4 Ultrasonography of Left Heart, Transesophageal (ICD-10-PCS; 2019-01-02)
PROC: 5A2204Z Restoration of Cardiac Rhythm, Single (ICD-10-PCS; 2019-01-02)
DX: A41.81 Sepsis due to Enterococcus (principal); I11.0 Hypertensive heart disease with heart failure; I50.23 Acute on chronic systolic (congestive) heart failure; J96.00 Acute respiratory failure, unspecified whether with hypoxia or hypercapnia; N20.1 Calculus of ureter; I47.2 Ventricular tachycardia; J90 Pleural effusion, not elsewhere classified; D62 Acute posthemorrhagic anemia; D68.32 Hemorrhagic disorder due to extrinsic circulating anticoagulants; K59.00 Constipation, unspecified; T45.525A Adverse effect of antithrombotic drugs, initial encounter; I48.91 Unspecified atrial fibrillation; E11.9 Type 2 diabetes mellitus without complications; G47.33 Obstructive sleep apnea (adult) (pediatric); K21.9 Gastro-esophageal reflux disease without esophagitis; Z95.2 Presence of prosthetic heart valve; Z79.01 Long term (current) use of anticoagulants; Z87.891 Personal history of nicotine dependence
CPT/HCPCS: 84484-ER; 85520-90; 97116-GP; 97161-GP; 97164-GP; 97166-GO; 97530-GO; 97535-GO; C1751; C1758; C1769; C2625; J0290; J0456; J0461; J0696; J1160; J1644; J1940; J2001; J2704; J3010; Q9967

== ENCOUNTER 2019-01-14 09:12 | Inpatient (IN) | payer OTHER, BC | END 2019-01-24 13:26 | disposition home health service (06) | LOC: F2W 10:56 ==

== ENCOUNTER → 2019-02-05 | Outpatient (CLI) | payer OTHER, BC | LOC: EMCIMAGING 11:49 ==